=== PATIENT | female | born 1950 | race Caucasian/White ===

== ENCOUNTER 2019-12-21 10:58 | Outpatient (CLI) | payer MEDICARE, MEDICAID, SELFPAY ==
--- NOTE | 2019-12-21 11:13 | CT_ITS ---
WS: [id number] LDCT LUNG CANCER SCREENING TECHNIQUE: Noncontrast CT of the chest with coronal and sagittal reformatted images. CLINICAL INFORMATION: HX OF TOBACCO USE COMPARISON: CTA chest 2 15,018 DLP: 72.81 mGy.cm DIvol: 2.[address] scans at [facility] use at least one of these dose optimization techniques: automat ed exposure control; mA and/or kV adjustment per patient size (includes targeted exams where dose is matched to clinical indication); or iterative reconstruction. FINDINGS: 3 mm nodule superior segment left lower lobe medially stable since 2018. Atelectasis in the lingula. Subpleural nodule right upper lobe measuring 3.5 mm. Partially calcified nodule right lower lobe hunter uring 5 mm. Additional calcified granulomas right lower lobe laterally. Aortic calcification. Coronary calcification. No mediastinal or hilar lymphadenopathy. Adrenal glands are normal. Small esophageal hiatal hernia. CT/CT lung screening [id number] IMPRESSION: LUNG-RADS: 2-Benign Appearance or Behavior FOLLOW UP: 12 Month: Continue annual screening with LDCT
--- NOTE | 2019-12-21 11:45 | MM_ITS ---
WS: [id number] BILATERAL DIGITAL DIAGNOSTIC MAMMOGRAM MAMMOGRAPHY WITH CAD CLINICAL INFORMATION: HX OF BREAST CA COMPARISON: TECHNIQUE: Bilateral CC, MLO, and ML views. FINDINGS: Fatty replaced breasts bilaterally. Bilateral dystrophic and lucent centered calcifications. Evidence of prior postoperative changes right breast. Right breast is smaller than the left breast. This is u nchanged. Post therapeutic changes right breast. No suspicious focal mass, asymmetry, calcifications, or architectural distortion. No evidence of codi gnancy. MM/[place] [id number] IMPRESSION: BI-RADS: 2-Benign FOLLOW UP: 1 Year Follow-up Recommend return to annual diagnostic mammography.
== END 2019-12-21 10:59 | disposition home or self-care (01) ==
LOC: CT 10:59
PROVIDERS: Family Provider Family Medicine; PCP Family Medicine; Visit Provider Family Medicine
DX: Z12.2 Encounter for screening for malignant neoplasm of respiratory organs (principal); Z85.3 Personal history of malignant neoplasm of breast; F17.210 Nicotine dependence, cigarettes, uncomplicated
CPT/HCPCS: 77066; G0297

== ENCOUNTER 2020-02-01 09:36 | Outpatient (CLI) | payer MEDICARE, MEDICAID, SELFPAY ==
--- NOTE | 2020-02-01 09:58 | ECG_ITS ---
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 Interpretive Statements NAME OF STUDY: LEXISCAN SESTAMIBI STRESS TEST INDICATION: Coronary Artery Disease PROCEDURE: At the baseline, the blood pressure was 194/85 mmHg with a heart rate of 63 bpm. The electrocardiogram showed normal sinus rhythm, normal axis with normal ST and T's. The Lexiscan was infused over a period of 20 seconds. A total of 0.4 milligrams of Lexiscan was infused. The stress phase was continued for a total of 5 minutes. Heart rate at the end of the stress phase was 74 bpm with a blood pressure of 190/84 mmHg. The EKG at the peak infusion revealed sinus rhythm at 74 bpm with no significant ST-T wave changes. Sestamibi was injected 20 seconds after the Lexiscan infusion. Blood pressure at the end of the recovery phase was 174/84 mmHg with a heart rate of 77 beats per minute. CONCLUSION: 1. No significant EKG changes with the LexiScan infusion. 2. No LexiScan induced chest pain or cardiac arrhythmia. 3. Normal blood pressure and heart rate response. 4. Sestamibi/sestamibi perfusion scan pending; see separate report. Electronically Signed On 02-02-2020 17:28:25 CDT by Darya Cleaning M.D. [email or web address] ([id number]
--- NOTE | 2020-02-01 09:59 | NMCV_ITS ---
NM arleen perf SPECT r/s* [id number] Maura Castañeda Age: 69 Gender: F : 1950 Exam Date: 02/01/2020 10:47 Ordering Phys: Moody Nix MD ([email or web address]) Technologist: MICHAEL Sommers Exam Location: [facility] Indications: CAD STRESS TEST Please see separate stress test report in [facility] for full findings IMAGE PROTOCOL Rest/Stress 1 Lexiscan Day Radiopharmaceutical Dose (mCi) Administration Site Administered by Rest: Tc-99m 10.8 IV MICHAEL Sommres Sestamibi Stress:Tc-99m 32.3 IV MICHAEL Sommers Sestamibi Rest: 01-Feb-2020 60 Discovery 630 Stress: 01-Feb-2020 30 Discovery 630 0.4mg Lexiscan. Images obtained in supine and prone position. SPECT RESULTS Technical Quality: Excellent Raw Data Analysis: Normal Image Corrections: No attenuation or motion correction applied Summed Stress Score: 0 Summed Rest Score: 0 Summed Difference Score: 0 PERFUSION FINDINGS Overall normal perfusion imaging. There is low radiotracer counts in the anterior wall both at rest and stress. However it normalizes on prone imaging. This is likely attenuation artifact. FUNCTIONAL RESULTS (calculated via Gated SPECT) Stress Image LV EF (%): 80 Stress EDV (mL):44 TID: 0.96 Stress ESV (mL):9 FUNCTIONAL FINDINGS: There is normal left ventricular systolic function. IMPRESSIONS 1. Normal myocardial perfusion imaging with no evidence of ischemia. Anterior wall attenuation artifact is noted that resolves on prone imaging. 2. normal LV systolic function. Woody Toney MD (Electronically Signed) Final Date: 02 February 2020 12:30 S
[2020-02-01 10:01] VITALS: BMI 31.1
[2020-02-01] MEDS: regadenoson 0.4 Mg/5 ml Syringe IVP (11:38)
[2020-02-01 11:55] VITALS: BP 174/84; PULSE 77
== END 2020-02-01 09:37 | disposition home or self-care (01) ==
LOC: CDL 09:39
PROVIDERS: Visit Provider Internal Medicine Cardiovascular Disease
DX: R07.9 Chest pain, unspecified (principal); I25.10 Atherosclerotic heart disease of native coronary artery without angina pectoris
CPT/HCPCS: 78452; 93017; A9500; J2785

== ENCOUNTER → 2020-08-30 12:52 | Outpatient (BNVA) | payer MEDICARE, MEDICAID, SELFPAY | PROVIDERS: PCP Internal Medicine Cardiovascular Disease; Visit Provider Urology | DX: R33.9 Retention of urine, unspecified (principal); N39.0 Urinary tract infection, site not specified | CPT/HCPCS: 81003 ==

== ENCOUNTER 2021-06-19 09:49 | Outpatient (CLI) | payer MEDICARE, MEDICAID, SELFPAY ==
--- NOTE | 2021-06-19 10:00 | US_ITS ---
WS: [id number] RIGHT UPPER QUADRANT ULTRASOUND HISTORY: ELEVATED LIVER ENZYMES COMPARISON: 08/29/2012 Liver: 14.1 cm in length. Liver is normal size. Surface of the liver is very slightly irregular and n odular. Increased echogenicity throughout the liver. Partial obscuration of the portal triads. No mas s or bile duct dilatation. Portal Vein: Normal hepatopetal flow with monophasic waveform. Gallbladder: Status post cholecystectomy. CBD: 0.5 cm Pancreas: Normal size and echogenicity. Right kidney: 13.9 cm in length. Normal size kidney. There is a large cyst from the upper pole of the kidney measuring 7.8 x 7.3 x 10.2 cm. Aorta and IVC: Unremarkable abdominal aorta and IVC. No ascites. US/US abdomen limited [id number] IMPRESSION: 1. Prior cholecystectomy. 2. Large RIGHT renal cyst is increased in size since 2012. 3. Early changes of cirrhosis and hepatic steatosis.
== END 2021-06-19 09:50 | disposition home or self-care (01) ==
PROVIDERS: PCP Internal Medicine Cardiovascular Disease; Visit Provider Family Medicine
DX: R74.8 Abnormal levels of other serum enzymes (principal); Z90.49 Acquired absence of other specified parts of digestive tract; N28.1 Cyst of kidney, acquired
CPT/HCPCS: 76705

== ENCOUNTER 2021-07-24 12:55 | Outpatient (CLI) | payer MEDICARE, MEDICAID, SELFPAY ==
--- NOTE | 2021-07-24 13:00 | MM_ITS ---
WS: [id number] Bilateral diagnostic 3D tomosynthesis digital mammogram, 07/24/2021 Clinical Data: HX OF BREAST CA Comparison: 12/21/2019, 01/21/2018, 12/24/2016, 11/10/2015, 11/08/2014, 07/06/2013, 04/09/2012. Findings: The parenchymal pattern shows bilateral fat replacement. The right breast is smaller because of treat ment for right breast cancer. There are dystrophic calcifications and skin thickening of the right br east. There is a soft tissue nodule unchanged in the right breast. The left breast shows anterior eloina ign calcifications. There are no clustered calcifications or spiculated masses. No secondary signs of carcinoma are seen. MM/[place] [id number] Impression: 1. Chronic changes from breast cancer treatment in the right breast. 2. Negative left breast. 3. Annual screening mammograms. BIRADS: 2-Benign The CAD die drawing checker was used.
== END 2021-07-24 12:56 | disposition home or self-care (01) ==
LOC: RADSHAW 12:56
PROVIDERS: PCP Internal Medicine Cardiovascular Disease; Visit Provider Family Medicine
DX: Z85.3 Personal history of malignant neoplasm of breast (principal)
CPT/HCPCS: 77062

== ENCOUNTER → 2021-07-30 14:02 | Outpatient (BNVA) | payer MEDICARE, MEDICAID, SELFPAY | PROVIDERS: PCP Family Medicine; Visit Provider Internal Medicine Cardiovascular Disease | DX: E78.5 Hyperlipidemia, unspecified (principal); I10 Essential (primary) hypertension; I25.10 Atherosclerotic heart disease of native coronary artery without angina pectoris; Z87.891 Personal history of nicotine dependence | CPT/HCPCS: 99214 ==

== ENCOUNTER → 2022-03-05 10:10 | Outpatient (BNVA) | payer MEDICARE, MEDICAID, SELFPAY | PROVIDERS: PCP Family Medicine; Visit Provider Surgery | DX: Z86.010 Personal history of colon polyps (principal); Z12.11 Encounter for screening for malignant neoplasm of colon | CPT/HCPCS: 99024; 99203 ==

== ENCOUNTER 2022-03-08 12:55 | Outpatient (CLI) | payer MEDICARE, MEDICAID, SELFPAY ==
--- NOTE | 2022-03-08 | CT_ITS ---
WS: [id number] LDCT LUNG CANCER SCREENING HISTORY: HX TOBACCO USE TECHNIQUE: Axial imaging performed from the apices to 1 cm below the costophrenic angles. Coronal and sagittal reformats are submitted with axial MIP series. All CT scans at [facility] use at least one of these dose optimization techniques: automated exposure control; mA and/or kV adjustment per patient size (includes targeted exams where dose is matched to clinical indication); or iterativ e reconstruction. DLP: 79.89 mGy.cm DIvol: Mean CTDIvol: 1.60 (mGy) COMPARISON: 12/21/2019 Diagnostic quality: Satisfactory Lung Nodules: No increase in size of the previously described pulmonary nodules from 12/21/2019. There are no new pulmonary nodules. No masses. No endobronchial lesions. Heart: Normal size heart. No pericardial effusion. There is extensive coronary artery calcifications. Most significant calcification along the LEFT anterior descending coronary. Other findings: Mildly ectatic thoracic aorta with calcification. Normal size pulmonary artery. No ad enopathy. RIGHT breast prosthesis. Small hiatal hernia. Large cyst RIGHT upper abdomen has been previ ously described associated with the kidney. 11 mm hyperdense mass exophytic from the posterior LEFT k idney is new. Prior cholecystectomy. No adrenal mass. CT/CT lung screening [id number] IMPRESSION: LUNG-RADS: 2S-Benign Appearance or Behavior with Significant Findings FOLLOW UP: 12 Month: Continue annual screening with LDCT OTHER FINDINGS (S MODIFIER): New hyperdense nodule from the posterior LEFT kidn ey measures 11 mm. Not seen on a prior CT from 2013. Recommend follow-up by dora marroquin.
== END 2022-03-08 12:56 | disposition home or self-care (01) ==
LOC: RAD 12:55
PROVIDERS: PCP Family Medicine; Visit Provider Family Medicine
DX: Z12.2 Encounter for screening for malignant neoplasm of respiratory organs (principal); Z87.891 Personal history of nicotine dependence
CPT/HCPCS: 71271

== ENCOUNTER 2022-07-22 15:25 | Outpatient (CLI) | payer MEDICARE, MEDICAID, SELFPAY ==
--- NOTE | 2022-07-22 16:01 | XR_ITS ---
WS: [id number] XR ankle LT min 3V* [id number] REASON FOR EXAM: INJURY TO LEFT ANKLE FINDINGS: Oblique fracture line through the medial malleolus without significant displacement. Sclerosis along the margins of the fracture. Ankle mortise is intact. No other significant abnormality. XR/XR ankle LT min 3V* [id number] IMPRESSION: Subacute medial malleolar fracture.
== END 2022-07-22 15:26 | disposition home or self-care (01) ==
PROVIDERS: PCP Family Medicine; Visit Provider Family Medicine
DX: S82.52XA Displaced fracture of medial malleolus of left tibia, initial encounter for closed fracture; X58.XXXA Exposure to other specified factors, initial encounter
CPT/HCPCS: 73610

== ENCOUNTER 2022-07-30 16:09 | Outpatient (CLI) | payer MEDICARE, MEDICAID, SELFPAY | END 2022-07-30 16:10 | disposition home or self-care (01) | LOC: SPT 16:10 | PROVIDERS: PCP Family Medicine; Visit Provider Podiatrist Foot & Ankle Surgery | DX: Z46.89 Encounter for fitting and adjustment of other specified devices (principal); S82.53XD Displaced fracture of medial malleolus of unspecified tibia, subsequent encounter for closed fracture with routine healing; X58.XXXD Exposure to other specified factors, subsequent encounter | CPT/HCPCS: 97760; 99203; L4361 ==

== ENCOUNTER 2022-09-04 13:03 | Outpatient (CLI) | payer MEDICARE, MEDICAID, SELFPAY ==
--- NOTE | 2022-09-04 13:28 | MM_ITS ---
WS: [id number] BILATERAL 3D TOMOSYNTHESIS DIGITAL DIAGNOSTIC MAMMOGRAPHY WITH CAD CLINICAL INFORMATION: ANNUAL - HX OF BREAST CA HISTORY: COMPARISON: July 24, 2021 TECHNIQUE: Bilateral CC, MLO, and ML views. FINDINGS: Scattered fibroglandular densities bilaterally. Punctate and lucent centered calcifications. Postoper ative changes RIGHT breast with parenchymal volume loss. Treatment-related changes RIGHT breast with parenchymal scarring. No suspicious focal mass, asymmetry, calcifications, or architectural distortion. No evidence of codi gnancy. MM/[place] [id number] IMPRESSION: BI-RADS: 2-Benign FOLLOW UP: 1 Year Follow-up Recommend return to annual diagnostic mammography.
== END 2022-09-04 13:04 | disposition home or self-care (01) ==
LOC: RAD 13:08
PROVIDERS: PCP Family Medicine; Visit Provider Family Medicine
DX: I25.10 Atherosclerotic heart disease of native coronary artery without angina pectoris (principal); J44.9 Chronic obstructive pulmonary disease, unspecified; Z72.0 Tobacco use; E78.5 Hyperlipidemia, unspecified; I10 Essential (primary) hypertension; I25.2 Old myocardial infarction; Z98.61 Coronary angioplasty status; S82.52XA Displaced fracture of medial malleolus of left tibia, initial encounter for closed fracture; X58.XXXA Exposure to other specified factors, initial encounter
CPT/HCPCS: 77062; 99213; G0279

== ENCOUNTER → 2023-02-25 13:20 | Outpatient (BNVA) | payer MEDICARE, MEDICAID, SELFPAY | PROVIDERS: PCP Family Medicine; Visit Provider Surgery | DX: Z12.11 Encounter for screening for malignant neoplasm of colon (principal) | CPT/HCPCS: 99024; 99213 ==

== ENCOUNTER 2023-03-26 09:37 | Day surgery (SDC) | payer MEDICARE, MEDICAID, SELFPAY ==
[2023-03-26 10:06] VITALS: BP 189/110; PULSE 80; RESP 18; TEMP 36.2; BMI 31.4
[2023-03-26 10:32] LABS: Glucose Point of Care 124 mg/dL (70-110)
[2023-03-26] MEDS: sodium chloride 0.9% 1,000 ML 30 ML IV (10:34)
[2023-03-26 10:43] LABS: Basophils # 0.1 10^3/uL (0.0-0.1); Eosinophils # 0.2 10^3/uL (0.0-0.8); Eosinophils % 2.3 %; Lymphocytes # 2.5 10^3/uL (0.8-4.8); Lymphocytes % 34.4 %; Mean Corpuscular HGB Conc 33.2 g/dL (30-55); Mean Corpuscular Hemoglobin 30.8 pg (27-33); Mean Corpuscular Volume 92.8 fl (85-98); Mean Platelet Volume 10.4 fL (7.4-10.4); Monocytes # 0.5 10^3/uL (0.2-0.9); Monocytes % 7.2 %; Neutrophils # 4.03 10^3/uL (1.8-7.7); Neutrophils % 54.7 %; Nucleated Red Blood Cells % 0 %; Platelet Count 253 10^3/cmm (157-399); Red Blood Count 4.74 10^6/uL (3.85-5.65); Red Cell Distribution Width 12.7 % (12.1-15.1); White Blood Count 7.36 10^3/uL (3.29-11.43)
--- NOTE | 2023-03-26 10:48 | ANES.PREANE2 ---
Pre-Anesthetic Assessment Height/Weight: Height 1.55 m Weight 75.296 kg Temp Pulse Resp BP O2 Del Method 97.1 F L 80 18 189/110 Room Air 03/26/23 10:06 03/26/23 10:06 03/26/23 10:06 03/26/23 10:06 03/26/23 10:06 Operation Date: 03/26/23 10:30 [place] 93571 colon G0121 screen colon A risk Z12.11(Not Applicable) - Davon Lee DO Familial anesthetic complications: None Was Beta Yumiko taken within 24 hours: N/A Was Clonidine taken within 24 hours: N/A Last intake: Intake Last Liquid Date 03/25/23 Last Liquid Time 22:00 Last Solid Date 03/24/23 Last Solid Time 17:00 Social No alcohol and No tobacco former Exam alert, oriented x 3, clear to auscultation bilaterally and regular rate & rhythm Airway Mallampati: Class II Dentition: full Pulmonary Chronic Obstructive Pulmonary Disease CV/HEM Hypertension, Myocardial Infarction and Murmur states able to achieve greater than 4 METS Metabolic Diabetes Mellitus [facility] [place] Rheumatoid Arthritis Anesthetic Plan ASA status: 3 Anesthesia: MAC Risk of > 500 ml blood loss (7ml/kg in children): No Medications/Allergies Home Medications Medication Instructions Recorded Confirmed Last Taken Type albuterol sulfate 90 mcg/actuation 2 puff inhalation Q6H PRN 09/28/19 03/26/23 4 Months Ago History aerosol inhaler Shortness Of Breath ~11/23/22 aspirin 81 mg tablet,delayed 81 mg PO DAILY 09/28/19 03/24/23 03/24/23 History release (Aspir-) atorvastatin 80 mg tablet 80 mg PO DAILY 09/28/19 03/24/23 03/25/23 History famotidine 40 mg tablet 40 mg PO DAILY 09/28/19 03/24/23 03/25/23 History gabapentin 300 mg capsule 300 mg PO BID 09/28/19 03/24/23 03/25/23 History (Neurontin) lisinopril 20 mg tablet 20 mg PO DAILY 09/28/19 03/24/23 03/25/23 History omega-3 fatty acids 1,000 mg 1,000 mg PO DAILY 09/28/19 03/24/23 03/25/23 History capsule (Fish Oil Concentrate) tramadol 50 mg tablet 50 mg PO Q6H PRN Pain 09/28/19 03/26/23 3 Months Ago History ~12/24/22 nitroglycerin 0.4 mg sublingual 0.4 mg sublingual Q5M PRN chest 01/11/20 03/26/23 1 Year Ago Rx tablet (Nitrostat) pain #60 tabs ~03/26/22 ferrous sulfate 325 mg (65 mg 325 mg PO .WEEKLY PRN .low iron 07/30/21 03/26/23 2 Weeks Ago History iron) tablet ~03/12/23 meloxicam 7.5 mg tablet 7.5 mg PO DAILY 07/30/21 03/24/23 03/25/23 History omeprazole 20 mg capsule,delayed 20 mg PO DAILY 07/30/21 03/24/23 03/25/23 History release prasugrel 10 mg tablet (Effient) 10 mg PO DAILY 07/30/21 03/24/23 03/25/23 History trazodone 50 mg tablet 50 mg PO DAILY 07/30/21 03/24/23 03/25/23 History tamsulosin 0.4 mg capsule See Rx Instructions .Route 01/21/22 03/24/23 03/25/23 Rx .COMPLEX #90 caps CAM boot #1 ea 07/30/22 02/25/23 03/25/23 Rx metformin 500 mg tablet 500 mg PO DAILY 03/26/23 03/26/23 03/23/23 History Allergies Allergy/AdvReac Type Severity Reaction Status Date / Time No Known Allergies Allergy Verified 03/24/23 12:14 Current Medications Generic Name Dose Route Start Last Admin Trade Name Yungq PRN Reason Stop Dose Admin Sodium Chloride 1,000 mls @ 30 mls/hr 03/26/23 09:45 03/26/23 10:34 Sodium Chloride 0.9% IV 03/27/23 09:44 30 mls/hr .Q24H NIKKO Administration PFSH Anesthesia Medical History Acute cystitis with hematuria ASHD (arteriosclerotic heart disease) COPD (chronic obstructive pulmonary disease) GERD (gastroesophageal reflux disease) Gross hematuria History of colon polyps HTN (hypertension) Hyperlipidemia Incomplete bladder emptying Lateral cystocele Meniere disease Myocardial infarction Recurrent UTI Rheumatoid arthritis Tobacco abuse Surgical History S/P cholecystectomy S/P hysterectomy S/P lumpectomy of breast S/P PTCA (percutaneous transluminal coronary angioplasty) S/P tonsillectomy Status post tubal ligation Social History Smoking and tobacco/nicotine status: former use of tobacco/nicotine Alcohol intake: unknown Substance/Drug Use: unknown Adopted: No Caregiver/support person: No Lives independently: No Household members: spouse Marital status: Current occupational status: retired Data Anesthesia 03/26/23 10:27 03/26/23 10:27 Short CBC 03/26/23 Range/Units 10:27 WBC 7.36 (3.29-11.43) 10^3/uL Hgb 14.60 (11.27-16.99) g/dL Hct 44.0 (36-47) % MCV 92.8 (85-98) fl Plt Count 253 (157-399) 10^3/cmm Neut % (Auto) 54.7 % Neut # (Auto) 4.03 (1.8-7.7) 10^3/uL Cardiac Studies: Sestamibi Stress Test (Cardiology) 02/01/20
--- NOTE | 2023-03-26 11:58 | P.HPUD_ITS ---
Surgery/Procedure H&P Update DATE OF PROCEDURE: March 26, 2023 DATE H&P PERFORMED: 02/25/23 H&P UPDATE INFORMATION: I have reviewed H&P completed within last 30 days, I have examined patient prior to procedure and No changes to prior documentation PLANNED PROCEDURE: Operation Date: 03/26/23 10:30 Proposed Procedures p 91960 colon G0121 screen colon A risk Z12.11(Not Applicable) - Davon ribera, DO
--- NOTE | 2023-03-26 12:35 | ANE.PACU2 ---
Inpatient post-anesthesia follow up: Airway intact: Yes Vital signs: Temperature 97 F Pulse Rate 58 Respiratory Rate 18 Blood Pressure 166/83 Pulse Oximetry 100 Oxygen Delivery Me thod Room Air Oxygen Flow Rate Fraction of Inspir ed Oxygen Hydration adequate: Yes Nausea and vomiting: No Pain level: 1 Mental status: Baseline
[2023-03-26 12:43] VITALS: BP 122/68; PULSE 59; RESP 18; TEMP 36.1; O2SAT 96
[2023-03-26] MEDS: ondansetron 2 mg/ML SDV 2 mL 4 MG IVP (12:59)
[2023-03-26 13:02] VITALS: BP 166/80; PULSE 56; RESP 18; O2SAT 98
--- NOTE | 2023-03-26 13:17 | PC.NURSE ---
1255 - pt up to bathroom passing flatus and throwing up yellow fluid. dr hammond notified.
[2023-03-26 13:26] VITALS: BP 166/83; PULSE 58; RESP 18; O2SAT 100
[2023-07-17 16:04] LABS: Mismatch Repari Proteins-IHC See Report
== END 2023-03-26 14:07 | disposition home or self-care (01) ==
PROVIDERS: Anesthesiology; PCP Family Medicine; Visit Provider Surgery
PROC: 0DJD8ZZ Inspection of Lower Intestinal Tract, Via Natural or Artificial Opening Endoscopic (ICD-10-PCS; CPT 45378; principal; 2023-03-26 10:30)
DX: Z12.11 Encounter for screening for malignant neoplasm of colon (principal); D12.3 Benign neoplasm of transverse colon; C18.6 Malignant neoplasm of descending colon; D12.8 Benign neoplasm of rectum; C20 Malignant neoplasm of rectum; K57.30 Diverticulosis of large intestine without perforation or abscess without bleeding; Z87.891 Personal history of nicotine dependence; I10 Essential (primary) hypertension; I25.2 Old myocardial infarction; E11.9 Type 2 diabetes mellitus without complications; M06.9 Rheumatoid arthritis, unspecified; I25.10 Atherosclerotic heart disease of native coronary artery without angina pectoris; E78.5 Hyperlipidemia, unspecified
CPT/HCPCS: 36415; 36416; 45385; 82962; 85025; 88305; 88341; 88342; J2405; J2704; J7030

== ENCOUNTER → 2023-04-23 13:30 | Outpatient (BNVA) | payer MEDICARE, MEDICAID, SELFPAY | PROVIDERS: PCP Family Medicine; Visit Provider Surgery | DX: C20 Malignant neoplasm of rectum (principal); K63.5 Polyp of colon | CPT/HCPCS: 99213 ==

== ENCOUNTER 2023-05-30 14:56 | Outpatient (CLI) | payer MEDICARE, MEDICAID, SELFPAY ==
--- NOTE | 2023-05-30 15:09 | CTR_ITS ---
PROCEDURE INFORMATION: Exam: CT Chest With Contrast; Diagnostic Exam date and time: 05/30/2023 5:54 PM Age: 72 years old Clinical indication: Condition or disease; Prior surgery; Surgery date: 6+ months; Surgery type: RT lumpectomy. Gb. Tubal. Patient HX: Oncology staging ofrectal cancer. ; Additional info: [place] neoplasm of rectum TECHNIQUE: Imaging protocol: Diagnostic computed tomography of the chest with contrast. Radiation optimization: All CT scans at this facility use at least one of these dose optimization techniques: automated exposure control; mA and/or kV adjustment per patient size (includes targeted exams where dose is matched to clinical indication); or iterative reconstruction. Contrast material: OMNI 350; Contrast volume: 100 ml; Contrast route: INTRAVENOUS (IV); Other contrast: Oral, OMNI 350 , 25ML IN 450ML WATER; COMPARISON: 1. CT lung screening [id number] 03/08/2022 1:[address] lung screening [id number] 12/21/2019 11:22 AM RADIATION DOSE METRICS: Total DLP (mGy-cm): 1208.75 FINDINGS: Lungs: There are some calcified granulomas in the lungs. There also nodules that are not definitely calcified on this examination but are unchanged from 12/21/2019 such as 5 mm nodule right lower lobe image number 33 series 4 and a 4 mm subpleural nodule right upper lobe on image number 14. No new pulmonary nodules or other findings suspicious for pulmonary metastasis are identified. There is focal scarring in the lingula unchanged from 2020. Pleural spaces: Unremarkable. No pneumothorax. No pleural effusion. Heart: Unremarkable. No cardiomegaly. No pericardial effusion. Lymph nodes: There is no evidence of lymphadenopathy. There are calcified hilar and mediastinal lymph nodes in keeping with old granulomatous disease. Vasculature: There is no thoracic aortic aneurysm or dissection. Bones/joints: The thoracic spine demonstrates mild degenerative changes at multiple levels. There is no evidence of acute fracture. No lytic or sclerotic bone metastasis are identified. Soft tissues: There has been a right mastectomy. PROCEDURE INFORMATION: Exam: CT Abdomen And Pelvis With Contrast Exam date and time: 05/30/2023 5:54 PM Age: 72 years old Clinical indication: Condition or disease; Prior surgery; Surgery date: 6+ months; Surgery type: RT lumpectomy. Gb. Tubal. Patient HX: Oncology staging ofrectal cancer. ; Additional info: [place] neoplasm of rectum TECHNIQUE: Imaging protocol: Computed tomography of the abdomen and pelvis with contrast. Radiation optimization: All CT scans at this facility use at least one of these dose optimization techniques: automated exposure control; mA and/or kV adjustment per patient size (includes targeted exams where dose is matched to clinical indication); or iterative reconstruction. Contrast material: OMNI 350; Contrast volume: 100 ml; Contrast route: INTRAVENOUS (IV); Other contrast: Oral, OMNI 350 , 25ML IN 450ML WATER; COMPARISON: 1. CT lung screening [id number] 03/08/2022 1:[address] angio chest PE protcl [id number] 06/26/2017 7:57 PM RADIATION DOSE METRICS: Total DLP (mGy-cm): 1208.75 FINDINGS: Liver: There is a 19 x 5 mm sized hypodense lesion in the right lobe of the liver along the posterior border of the middle hepatic vein common best seen on image 4 series 5. In retrospect this is probably present on the CT pulmonary angiogram study of 06/26/2017. This most likely represents benign cystic lesion of the liver. No other focal abnormality is seen within the liver. Gallbladder and bile ducts: There has been a cholecystectomy. Pancreas: The pancreas is normal. Spleen: The spleen demonstrates punctate calcifications, consistent with remote granulomatous organism exposure. Adrenal glands: The adrenal glands are normal. Kidneys and ureters: There are multiple benign cortical cysts in both kidneys measuring up to 5 cm on the left 5 x 8 cm on the right. There is no evidence of hydronephrosis. There is no evidence of renal or ureteral calcifications. Stomach and bowel: Moderate diverticulosis is present in the distal colon. There is no evidence of colitis/diverticulitis. There is abnormal enhancement and thickening of the left wall of the rectum consistent with the given history of rectal cancer. There is no evidence of intestinal obstruction. Appendix: A normal appendix is identified. Intraperitoneal space: There is no evidence of free intraperitoneal fluid. Vasculature: The aorta demonstrates moderate atherosclerotic calcification. There is mild ectasia of the infrarenal abdominal aorta measuring 2.1 cm. Lymph nodes: Enhancing 5 x 7 mm sized lymph node is seen in the perirectal fat on the left on image number 63 series 5. No other adenopathy is identified. Urinary bladder: There is mild thickening of the urinary bladder wall with some stranding in the adjacent fat. Please correlate for clinical signs or symptoms of urinary tract infection. Reproductive: There has been a hysterectomy. Bones/joints: Unremarkable. No acute fracture. Soft tissues: There is a small umbilical hernia containing only fat. CT/CT chest abdpel w/*[id number] IMPRESSION: 1. Stable pulmonary nodules. 2. No acute findings or evidence for metastatic disease within the chest. IMPRESSION: 1. Enhancing rectal mass consistent with the given diagnosis of rectal cancer. 2. A single perirectal lymph node is identified of uncertain significance. No definite metastatic disease in the abdomen or pelvis. 3. Urinary bladder thickening. Please correlate with clinical findings for urinary tract infection. COMMENTS: Consistent with the [employer]'s Incidental Findings Committee white paper (J Am Taniya Radiol 2018): Any incidental renal lesion less than 1 cm or classified as too small to characterize, or any incidental cystic renal lesion characterized as simple-appearing, is likely benign. No follow-up imaging is recommended for these lesions per consensus recommendations based on imaging criteria.
[2023-05-30 16:03] LABS: Blood Urea Nitrogen 14 mg/dL (8-23)
[2023-05-30] MEDS: iohexol 350 mg/mL 500 mL Btl (per mL) IV (17:56)
[2023-05-30] MEDS: iohexol 350 mg/mL 500 mL Btl (per mL) PO (17:57)
== END 2023-05-30 14:57 | disposition home or self-care (01) ==
PROVIDERS: PCP Family Medicine; Visit Provider Family Medicine
DX: C20 Malignant neoplasm of rectum (principal); C18.6 Malignant neoplasm of descending colon; N32.9 Bladder disorder, unspecified; Z98.890 Other specified postprocedural states
CPT/HCPCS: 71260; 74177; 82565; 84520; Q9967

== ENCOUNTER 2023-05-30 16:30 | Emergency (ER) | payer MEDICARE, MEDICAID, SELFPAY ==
[2023-05-30 16:36] VITALS: BP 116/89; PULSE 83; RESP 20; O2SAT 99
--- NOTE | 2023-05-30 16:47 | XRR_ITS ---
PROCEDURE INFORMATION: Exam: XR Chest Exam date and time: 05/30/2023 4:53 PM Age: 72 years old Clinical indication: Other: Dizziness; Additional info: Synocope TECHNIQUE: Imaging protocol: Radiologic exam of the chest. Views: 1 view. COMPARISON: CT lung screening [id number] 03/08/2022 1:42 PM FINDINGS: Lungs: Visualized portions of the lungs are clear. There is no pulmonary venous congestion. Pleural spaces: Unremarkable. No pleural effusion. No pneumothorax. Heart/Mediastinum: Heart is within normal limits of size. Bones/joints: Unremarkable. XR/XR chest 1V portable [id number] IMPRESSION: No acute infiltrate.
--- NOTE | 2023-05-30 16:48 | ECG_ITS ---
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 Measurements Intervals [place] Rate: 77 P: 47 SC: 146 QRS: 64 QRSD: 82 T: 75 QT: 395 QTc: 448 Interpretive Statements SINUS RHYTHM INDETERMINATE AXIS POSSIBLE INFERIOR MYOCARDIAL INFARCTION , OF Compared to ECG 06/26/2017 17:29:32 Indeterminate axis now present Myocardial infarct finding now present Sinus arrhythmia no longer present Electronically Signed On 05-31-2023 6:07:43 WELDING SETTER by Woody Toney M.D. [email or web address] hospitalHyper [facility].Social Median/store/NU/[id number] f
--- NOTE | 2023-05-30 16:49 | ED_ITS ---
HPI - General Adult 2 General: Chief complaint: General Medical Stated complaint: unresponsive Time Seen by Provider: 05/30/23 16:33 Source: patient and other (Radiology staff) Mode of arrival: wheelchair History of Present Illness: This patient was in radiology this afternoon getting a scheduled CT scan. She was drinking the oral contrast and stated there was upsetting her stomach and she was nauseated and then was noted to be less responsive by the radiology staff. She stated she wanted to go to the bathroom and they let her sit on the commode and she continued to have waxing and waning level of alertness and they called a rapid response and she was transported to the emergency department. Patient states she is she has no chest pain or shortness of breath at this time. She states she has a history of coronary disease had an MRI of several years ago and had stents placed in [place]. She apparently is being evaluated for a rectal mass and therefore the CT scan was being performed. Patient states that she is ate and drank normally today has had no significant history of syncope. Associated symptoms: Deny chest pain, dyspnea, headache(s), nausea, rash, palpitations or vomiting Review of Systems 2 Const: Denies: fever(s) or chills Eyes: Denies: change in vision ENMT: Denies: odynophagia, nasal discharge or nasal congestion Card: Denies: chest pain, palpitations, irregular heart rhythm or edema Resp: Denies: dyspnea, productive cough or non-productive cough GI: Denies: nausea, vomiting, diarrhea, hematochezia or melena : Denies: flank pain, difficulty voiding or dysuria Musc: Denies: neck pain, back pain, extremity pain or extremity swelling Skin/Breast: Denies: rash Neuro: Denies: headache(s), numbness in extremities, weakness in extremities or seizure-like activity Psych: Denies: anxiety or depression Alberto/Lymph: Denies: easy bruising or easy bleeding PFSH ED 2 PFSH: Medical History History of colon polyps GERD (gastroesophageal reflux disease) Meniere disease Rheumatoid arthritis Lateral cystocele Acute cystitis with hematuria Gross hematuria Recurrent UTI Incomplete bladder emptying Tobacco abuse COPD (chronic obstructive pulmonary disease) Hyperlipidemia HTN (hypertension) Myocardial infarction ASHD (arteriosclerotic heart disease) Surgical History S/P tonsillectomy Status post tubal ligation S/P hysterectomy S/P lumpectomy of breast S/P cholecystectomy S/P PTCA (percutaneous transluminal coronary angioplasty) Social History Smoking and tobacco/nicotine status: former use of tobacco/nicotine Alcohol intake: unknown Substance/Drug Use: unknown Adopted: No Caregiver/support person: No Lives independently: No Household members: spouse Marital status: Current occupational status: retired Physical Exam 2 Narrative: EXAM NARRATIVE: The patient is alert and responds appropriately to questions. Const: COMMON NORMALS: no acute distress, patient oriented x3, no limitations and alert GENERAL APPEARANCE: cooperative ORIENTATION/CONSCIOUSNESS: Yes awake, Yes oriented to person and Yes oriented to place HENMT: COMMON NORMALS: normocephalic, atraumatic, moist oral mucous membranes and oropharynx normal HEAD & SCALP: normocephalic and atraumatic FACE & SINUS: normal facial exam and face symmetric Eye: COMMON NORMALS: Equal, round and reactive pupils present, EOMs intact bilaterally and conjunctivae normal CONJUNCTIVA: Yes conjunctivae normal P UPIL: Yes Equal, round and reactive pupils present Neck/C-Spine: COMMON NORMALS: full ROM, no JVD, Thyroid normal and No carotid bruits THYROID: Thyroid normal Resp: COMMON NORMALS: normal respiratory effort, No use of accessory muscles and clear to auscultation bilaterally AUSCULTATION: clear to auscultation bilaterally Cardio: COMMON NORMALS: no JVD, regular rate, regular rhythm, No murmurs present (Cardio) and Peripheral pulses 2+ throughout RATE: regular rate R HYTHM: regular rhythm PERIPHERAL PULSES: Peripheral pulses 2+ throughout GI: COMMON NORMALS: Normal to inspection, nondistended, normoactive bowel sounds present, Soft to palpation and no masses PALPATION: Yes Soft to palpation : COMMON NORMALS: Yes no CVA tenderness BLADDER/KIDNEY EXAM: Yes no CVA tenderness Back/Pelvis: COMMON NORMALS: no CVA tenderness, thoracic and lumbar spine normal to inspection, no thoracic nor lumbar tenderness and thoraco-lumbar ROM normal Extremity: COMMON NORMALS: normal to inspection, full ROM, no clubbing, cyanosis or edema, no calf tenderness and no pedal edema Neuro: COMMON NORMALS: patient oriented x3, moves all extremities, no focal motor deficits and no sensory deficits noted SENSORIUM/ORIENTATION: Yes alert, Yes oriented to person and Yes oriented to place CRANIAL NERVES: Yes CN normal except as noted Skin: COMMON NORMALS: no rashes or lesions noted, no wounds and turgor normal GENERAL SKIN EXAM: no rashes or lesions noted and turgor normal Course 2 Reevaluation(s): Reevaluation #1: Patient doing well. Labs are noted including borderline low potassium level. Will go ahead and orally replete this. Her initial troponin is mildly elevated however this point does not appear that patient is having evidence of ACS etc. I discussed findings with the patient including her very minimal elevation of troponin. At no time did she experience chest pain shortness of breath, etc. Oertli is consistent with a vagal reaction given her nausea from the oral contrast. We reviewed continued observation in the emergency department after she receives her potassium repletion and she voiced understanding of that turned to but is more comfortable with going home at this time. Time: 18:10 Vital Signs: Vital signs: Vital Signs Pulse Rate 83 05/30/23 16:36 Respiratory Rate 20 H 05/30/23 16:36 Blood Pressure 116/89 05/30/23 16:36 Pulse Oximetry 99 05/30/23 16:36 Oxygen Delivery Me thod Room Air 05/30/23 16:36 MDM - General Adult Medical Decision Making This patient was transported to the emergency department from radiology after rapid response when she had a near syncopal episode related to nausea from oral contrast that was given prior to her CT scan. She denied any freq seating symptoms such as chest pain shortness of breath. There was no focal weakness slurring of speech or other symptoms to suggest central nervous system issues. Initial evaluation in the emergency department revealed her to be alert awake with an unremarkable physical examination. Initial EKG showed no ischemic changes. Monitor revealed normal sinus rhythm without any evidence of arrhythmia. She received the benefit of some screening laboratories as well as chest x-ray and continued observation. She remained stable with normal vital signs. She was taken to radiology and received her scheduled CT scan that was ordered by oncology. Her borderline low potassium was repleted orally. She did have a very minimal elevation in her initial troponin was not felt that this was the result of any ischemic or myocardial injury and the patient was desirous to being discharged from the emergency department she felt at her baseline. We discussed return precautions in detail. Medical Records I reviewed the patient's medical records. Lab Data I reviewed the patient's lab results. 05/30/23 16:30 05/30/23 16:30 Radiology Impressions Chest X-Ray 05/30/23 16:47 IMPRESSION: No acute infiltrate. Laboratory Results WBC 9.53 10^3/uL (3.29-11.43) 05/30/23 16:30 RBC 4.18 10^6/uL (3.85-5.65) 05/30/23 16:30 Hgb 12.90 g/dL (11.27-16.99) 05/30/23 16:30 Hct 38.5 % (36-47) 05/30/23 16:30 MCV 92.1 fl (85-98) 05/30/23 16:30 MCH 30.9 pg (27-33) 05/30/23 16:30 MCHC 33.5 g/dL (30-55) 05/30/23 16:30 RDW 12.7 % (12.1-15.1) 05/30/23 16:30 Plt Count 283 10^3/cmm (157-399) 05/30/23 16:30 MPV 9.9 fL (7.4-10.4) 05/30/23 16:30 Neut % (Auto) 57.1 % 05/30/23 16:30 Lymph % (Auto) 32.6 % 05/30/23 16:30 [place] % (Auto) 7.6 % 05/30/23 16:30 Eos % (Auto) 1.6 % 05/30/23 16:30 Baso % (Auto) 0.7 % 05/30/23 16:30 Neut # (Auto) 5.44 10^3/uL (1.8-7.7) 05/30/23 16:30 Lymph # (Auto) 3.1 10^3/uL (0.8-4.8) 05/30/23 16:30 [place] # (Auto) 0.7 10^3/uL (0.2-0.9) 05/30/23 16:30 Eos # (Auto) 0.2 10^3/uL (0.0-0.8) 05/30/23 16:30 Baso # (Auto) 0.1 10^3/uL (0.0-0.1) 05/30/23 16:30 Nucleated RBC % (auto) 0 % 05/30/23 16:30 Nucleated RBCs # 0.0 /100WBC 05/30/23 16:30 Sodium 141 mmol/L (136-145) 05/30/23 16:30 Potassium 3.0 mmol/L (3.5-5.1) L 05/30/23 16:30 Chloride 110 mmol/L (98-107) H 05/30/23 16:30 Carbon Dioxide 19 mmol/L (22-29) L 05/30/23 16:30 Anion Gap 15.0 (5-19) 05/30/23 16:30 BUN 13 mg/dL (8-23) 05/30/23 16:30 Creatinine 0.7 mg/dL (0.5-0.9) 05/30/23 16:30 GFR Calculation Not Reportable 05/30/23 16:30 Glucose 108 mg/dL (65-115) 05/30/23 16:30 Calculated Osmolality 293 mOsm/kg (285-295) 05/30/23 16:30 Calcium 7.2 mg/dL (8.5-10.5) L 05/30/23 16:30 Total Bilirubin 0.3 mg/dL (0.15-1.2) 05/30/23 16:30 AST 18 U/L (0-32) 05/30/23 16:30 ALT 30 U/L (0-33) 05/30/23 16:30 Alkaline Phosphatase 73 U/L (35-105) 05/30/23 16:30 Troponin T Baseline 13 ng/L (0-10) H 05/30/23 16:30 Total Protein 4.9 g/dL (6.6-8.7) L 05/30/23 16:30 Albumin 3.5 g/dL (3.5-5.2) 05/30/23 16:30 Globulin 1.4 g/dL (1.3-4.6) 05/30/23 16:30 All radiology interpretation(s) finalized by discharge EKG Data EKG 1: I personally reviewed and interpreted this EKG as follows: Interpretation: Resting EKG reveals a ventricular rate of 77 bpm. Normal MS interval, QRS duration, corrected QT interval. Normal axis. Compared with prior tracing at this facility there is no acute changes to suggest acute ischemia at this time. Computer generated interpretation: Chest X-Ray 05/30/23 16:47 IMPRESSION: No acute infiltrate. Discharge Plan Discharge Patient Disposition: Home Clinical Impression: Vasovagal near syncope, Hypokalemia Condition: Stable Prescriptions: New potassium chloride 10 mEq capsule, extended release 10 meq PO DAILY Qty: 7 0RF No Action albuterol sulfate 90 mcg/actuation HFA aerosol inhaler 2 puff INHALATION Q6H PRN (Reason: Shortness Of Breath) famotidine 40 mg tablet 40 mg PO DAILY atorvastatin 80 mg tablet 80 mg PO DAILY tramadol 50 mg tablet 50 mg PO Q6H PRN (Reason: Pain) lisinopril 20 mg tablet 20 mg PO DAILY aspirin [Aspir-81] 81 mg tablet,delayed release (DR/EC) 81 mg PO DAILY gabapentin [Neurontin] 300 mg capsule 300 mg PO BID omega-3 fatty acids [Fish Oil Concentrate] 1,000 mg capsule 1,000 mg PO DAILY ferrous sulfate 325 mg (65 mg iron) tablet 325 mg PO .WEEKLY PRN (Reason: .low iron) trazodone 50 mg tablet 50 mg PO DAILY prasugrel [Effient] 10 mg tablet 10 mg PO DAILY Hold Instructions: Resume on 03/29/23. meloxicam 7.5 mg tablet 7.5 mg PO DAILY Hold Instructions: Resume on 03/29/23. omeprazole 20 mg capsule,delayed release(DR/EC) 20 mg PO DAILY (DME) CAM boot See Rx Instructions .Route .MEDSUPPLY Qty: 1 0RF Rx Instructions: As directed nitroglycerin [Nitrostat] 0.4 mg tablet, sublingual 0.4 mg SUBLINGUAL Q5M PRN (Reason: chest pain) Qty: 60 2RF Rx Instructions: do not exceed 3 doses per episode tamsulosin 0.4 mg capsule See Rx Instructions .ROUTE .COMPLEX Qty: 90 3RF Dose Instruction: TAKE 1 CAPSULE DAILY Rx Instructions: TAKE 1 CAPSULE DAILY metformin 500 mg tablet 500 mg PO DAILY Discharge Orders: Discharge ED (Routine); Ordered 05/30/23 Ordered By: Babak Valdez Referrals: Kwame,Tish Janie, DO [Primary Care Provider] - Discharge Diet: Usual diet Discharge Activity: Increase activity as tolerated Patient Instructions: Opioid Safety, Pain Management Activity Restrictions/Additional Instructions: As we discussed the episode you had in radiologist probably related to nausea from the oral contrast. We gave you oral potassium while you are in the emergency department because your potassium level was slightly low and we have provided a prescription for oral potassium to take for the next week. If you develop any concerning symptoms such as chest pain shortness of breath palpitations etc. return to the emergency department for reevaluation otherwise follow-up with your oncologist for discussion of your CT scan report. Coding Level of Care Code ED Delivery Driver for Ronnie Gudino
[2023-05-30 17:09] LABS: Basophils # 0.1 10^3/uL (0.0-0.1); Basophils % 0.7 %; Eosinophils # 0.2 10^3/uL (0.0-0.8); Eosinophils % 1.6 %; Hematocrit 38.5 % (36-47); Lymphocytes # 3.1 10^3/uL (0.8-4.8); Lymphocytes % 32.6 %; Mean Corpuscular HGB Conc 33.5 g/dL (30-55); Mean Corpuscular Hemoglobin 30.9 pg (27-33); Mean Corpuscular Volume 92.1 fl (85-98); Mean Platelet Volume 9.9 fL (7.4-10.4); Monocytes # 0.7 10^3/uL (0.2-0.9); Monocytes % 7.6 %; Neutrophils # 5.44 10^3/uL (1.8-7.7); Neutrophils % 57.1 %; Nucleated Red Blood Cells % 0 %; Platelet Count 283 10^3/cmm (157-399); Red Blood Count 4.18 10^6/uL (3.85-5.65); Red Cell Distribution Width 12.7 % (12.1-15.1); White Blood Count 9.53 10^3/uL (3.29-11.43)
[2023-05-30] MEDS: sodium chloride 0.9% 1,000 ML 999 ML IV (17:13)
[2023-05-30 17:41] LABS: Troponin(5th) Baseline 13 ng/L (0-10)
[2023-05-30 17:46] LABS: Alanine Aminotransferase 30 U/L (0-33); Albumin Level 3.5 g/dL (3.5-5.2); Alkaline Phosphatase 73 U/L (35-105); Aspartate Amino Transferase 18 U/L (0-32); Blood Urea Nitrogen 13 mg/dL (8-23); Calcium 7.2 mg/dL (8.5-10.5); Carbon Dioxide 19 mmol/L (22-29); Chloride 110 mmol/L (98-107); Globulin 1.4 g/dL (1.3-4.6); Glucose 108 mg/dL (65-115); Osmolality Calculated 293 mOsm/kg (285-295); Sodium 141 mmol/L (136-145); Total Bilirubin 0.3 mg/dL (0.15-1.2); Total Protein 4.9 g/dL (6.6-8.7)
[2023-05-30] MEDS: potassium bicarb 25 mEq Tablet 50 MEQ PO (18:24)
== END 2023-05-30 18:32 | disposition home or self-care (01) ==
PROVIDERS: Emergency Provider Emergency Medicine; PCP Family Medicine
DX: R55 Syncope and collapse (principal); E87.6 Hypokalemia; Z79.82 Long term (current) use of aspirin; Z79.84 Long term (current) use of oral hypoglycemic drugs; Z87.891 Personal history of nicotine dependence; J44.9 Chronic obstructive pulmonary disease, unspecified; E78.5 Hyperlipidemia, unspecified; I25.2 Old myocardial infarction
CPT/HCPCS: 71045; 71260; 74177; 80053; 82565; 84484; 84520; 85025; 93005; 96360; 99285; J7030; Q9967

== ENCOUNTER → 2023-07-24 10:09 | Outpatient (BNVA) | payer MEDICARE, MEDICAID, SELFPAY | PROVIDERS: PCP Family Medicine; Referring Provider Internal Medicine; Visit Provider Surgery | DX: C20 Malignant neoplasm of rectum (principal); K63.5 Polyp of colon | CPT/HCPCS: 99214 ==

== ENCOUNTER 2023-07-31 14:32 | Outpatient (CLI) | payer MEDICARE, MEDICAID, SELFPAY ==
--- NOTE | 2023-07-31 14:36 | CT_ITS ---
WS: [id number] CT CHEST, ABDOMEN, AND PELVIS TECHNIQUE: Contrast-enhanced CT of the chest, abdomen, and pelvis with coronal and sagittal reformatt ed images. CLINICAL INFORMATION: rectal cancer COMPARISON: CT chest abdomen pelvis 05/30/2023 DLP: 944.[address] scans at [facility] use at least one of these dose optimization techniques: automated e xposure control; mA and/or kV adjustment per patient size (includes targeted exams where dose is matc hed to clinical indication); or iterative reconstruction. CT CHEST: Lungs are well aerated. No acute pulmonary infiltrates. A few tiny subpleural nodules RIGHT upper and RIGHT lower lobes. No new suspicious pulmonary parenchymal opacities. Fibrosis in the lingula. Marlin l caliber thoracic aorta. Aortic calcification. Coronary calcification. Proximal main pulmonary arter ies are normal. No mediastinal or hilar lymphadenopathy. No axillary lymphadenopathy. Prior postopera tive changes RIGHT mastectomy. CT ABDOMEN AND PELVIS: Prior hysterectomy and cholecystectomy. Diffuse fatty infiltration of the liver. Incidental hepatic c yst along the middle hepatic vein unchanged. Normal portal vein and splenic vein. Prior cholecystecto my. Splenic granulomas. Small esophageal hernia. Normal pancreas. Normal spleen. Adrenal glands are n ormal. Bilateral renal cysts. No hydronephrosis. Aortic calcification. Normal caliber abdominal aorta . Sigmoid diverticulosis. LEFT eccentric rectal wall nodular mass compatible with rectal carcinoma similar to the prior examina tion. Previously described LEFT perirectal lymph node measuring 5 mm is unchanged. No new lymphadenop athy. Normal appendix. Fat-containing umbilical hernia. IMPRESSION: 1. No evidence of metastatic disease in the chest. 2. LEFT eccentric nodular rectal wall thickening similar to the prior examination compatible with hi story of rectal carcinoma. Previously described LEFT perirectal lymph node measuring 5 mm is unchange d. No new perirectal lymphadenopathy. 3. Diffuse fatty infiltration of the liver. 4. Small esophageal hiatal hernia. 5. Bilateral renal cysts.
== END 2023-07-31 14:33 | disposition home or self-care (01) ==
LOC: RAD 14:33
PROVIDERS: PCP Family Medicine; Visit Provider Internal Medicine
DX: C20 Malignant neoplasm of rectum (principal); K76.0 Fatty (change of) liver, not elsewhere classified; K44.9 Diaphragmatic hernia without obstruction or gangrene; N28.1 Cyst of kidney, acquired
CPT/HCPCS: 71260; 74177

== ENCOUNTER 2023-08-08 10:36 | Oncology outpatient (recurring) (ONCR) | payer MEDICARE, MEDICAID, SELFPAY ==
[2023-07-15 10:23] LABS: Basophils # 0.1 10^3/uL (0.0-0.1); Eosinophils # 0.2 10^3/uL (0.0-0.8); Eosinophils % 2.5 %; Lymphocytes # 2.3 10^3/uL (0.8-4.8); Lymphocytes % 38.1 %; Mean Corpuscular HGB Conc 33.4 g/dL (30-55); Mean Corpuscular Hemoglobin 30.6 pg (27-33); Mean Corpuscular Volume 91.7 fl (85-98); Mean Platelet Volume 10.4 fL (7.4-10.4); Monocytes # 0.4 10^3/uL (0.2-0.9); Monocytes % 6.2 %; Neutrophils # 3.11 10^3/uL (1.8-7.7); Nucleated Red Blood Cells % 0 %; Platelet Count 276 10^3/cmm (157-399); Red Blood Count 4.47 10^6/uL (3.85-5.65); Red Cell Distribution Width 13.1 % (12.1-15.1); White Blood Count 5.98 10^3/uL (3.29-11.43)
[2023-07-15 11:05] LABS: Alanine Aminotransferase 30 U/L (0-33); Albumin Level 4.6 g/dL (3.5-5.2); Alkaline Phosphatase 100 U/L (35-105); Anion Gap 18.1 (5-19); Aspartate Amino Transferase 20 U/L (0-32); Blood Urea Nitrogen 12 mg/dL (8-23); Calcium 9.3 mg/dL (8.5-10.5); Carbon Dioxide 24 mmol/L (22-29); Carcinoembryonic Antigen 3.6 ng/mL (0.0-4.7); Chloride 102 mmol/L (98-107); Creatinine Clr Calc Pharmacy 57.3087; Globulin 2.5 g/dL (1.3-4.6); Glucose 132 mg/dL (65-115); Osmolality Calculated 292 mOsm/kg (285-295); Potassium 4.1 mmol/L (3.5-5.1); Sodium 140 mmol/L (136-145); Total Bilirubin 0.4 mg/dL (0.15-1.2); Total Protein 7.1 g/dL (6.6-8.7)
[2023-07-15 11:17] LABS: Hepatitis A Antibody IgM Non-Reactive (Nonreactive); Hepatitis B Core AB, Total Non-Reactive (Nonreactive); Hepatitis B Surface AB < 3.5 (11.5-1000); Hepatitis B Surface Antigen Non-Reactive (Nonreactive); Hepatitis C Virus Antibody Non-Reactive (Nonreactive)
--- NOTE | 2023-07-16 13:51 | N.ONRAD NP_ITS ---
Radiation Oncology New Patient Visit Patient: Maura Castañeda MR#: [id number] : 1950> Age: 73> Sex: Female> Dictated by: Dr. Sparkle Mina Date of Service: 07/16/2023 Referring Physician(s) : Dr. Zavala Diagnosis: Invasive adenocarcinoma of the rectum Radiotherapy to date: Summary > she had radiation for breast cancer back in the in [place]. She apparently also had chemotherapy.. Chief Complaint / History of Present Illness: Patient is a 73-year-old lady who says 4 years ago she had a colonoscopy and was told she had many polyps. She had a repeat colonoscopy 2 years later and again had multiple polyps removed. She just had her most recent colonoscopy in March and was once again found to have multiple polyps as well as a mass in the rectum. The mass in the rectum was friable biopsies were taken and it was consistent with a moderately differentiated adenocarcinoma of the rectum. One of the biopsies from the polyp in the descending colon which was associated with a tubular adenoma was also positive for adenocarcinoma. She has had a CT scan which shows the mass in the rectum as well as a perirectal lymph node. She also has had an MRI of her pelvis which did show that the mass in the rectum was 3 cm from the anal verge and was a total length of 6 cm. It was circumferential and staged as a T3 N1 as there were 2 mesorectal lymph nodes associated that appeared to be involved. She is seen today in consultation to discuss the radiation portion of combined modality therapy. Current Medications: albuterol sulfate 90 mcg/actuation 2 puffs inhalation Q6H PRN aspirin (Aspir-) 81 mg PO DAILY atorvastatin 80 mg PO DAILY [CAM boot As directed] famotidine 40 mg PO DAILY ferrous sulfate 325 mg PO .WEEKLY PRN gabapentin (Neurontin) 300 mg PO BID lisinopril 20 mg PO DAILY meloxicam 7.5 mg PO DAILY metformin 500 mg PO DAILY nitroglycerin (Nitrostat) 0.4 mg sublingual Q5M PRN omega-3 fatty acids (Fish Oil Concentrate) 1,000 mg PO DAILY omeprazole 20 mg PO DAILY potassium chloride ER 10 mEq PO DAILY prasugrel (Effient) 10 mg PO DAILY tamsulosin TAKE 1 CAPSULE DAILY tramadol 50 mg PO Q6H PRN trazodone 50 mg PO DAILY Allergies: Medical History: History of colon polyps GERD (gastroesophageal reflux disease) Meniere disease Rheumatoid arthritis Lateral cystocele Acute cystitis with hematuria Gross hematuria Recurrent UTI Incomplete bladder emptying Tobacco abuse COPD (chronic obstructive pulmonary disease) Hyperlipidemia HTN (hypertension) Myocardial infarction ASHD (arteriosclerotic heart disease. Surgical History: S/P tonsillectomy Status post tubal ligation S/P hysterectomy S/P lumpectomy of breast S/P cholecystectomy S/P PTCA (percutaneous transluminal english Family History: Social History: She currently lives alone as she says in [place]. Smoking and tobacco/nicotine status: former use of tobacco/nicotine Alcohol intake: unknown Substance/Drug Use: unknown Adopted: No Caregiver/support person: No Lives independently: No Household members: None Marital status: Current occupational status: retired Current Complaints / Review of Systems: . She currently denies any focal symptoms related to the cancer Vital Signs: Performed on 07/16/2023 1:10 PM BMI - 30.874 kg/m2 (high), Height - 62 in, Weight - 168.8 lbs, Temperature - 96.6 f, Pulse - 94 /min, Respiration - 18 /min, O2 Sat - 97 %, Pain - 0, Fatigue - 0 and BP - 156/ 88 mm(hg)(high/). Physical Exam: General: Patient is in no apparent distress sitting comfortably in the chair HEENT: Normocephalic atraumatic, pupils are equal round reactive to light, extraocular muscles intact. Lungs: Clear to auscultation, respiratory rate is regular nonlabored Cardiovascular: Regular rate and rhythm Abdomen: Soft and nontender without hepatomegaly Extremities: Without clubbing cyanosis or edema Skin: Warm and dry without ecchymoses or rash Neurological: Alert and orient x 3. Gait speech within normal limits. 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 Schmidt the findings on her MRI. We talked about the different things that she has been through. We talked about her previous radiation. She did have a bit of a brisk skin reaction at that time. I reviewed with her that this treatment would be a little bit different. We did talk about the simulation process and the daily treatment regiment. She understands that we will take 5 weeks of treatment with daily visits. We reviewed the risks and side effects of the treatment both acute and long-term. This point she had no additional questions or concerns. She is anxious to get treatment started. She does understand that once we finished with her treatment the surgeon would proceed with evaluation to decide on the need for initial surgery or continued close observation. We did talk about how at some point she will need to have surgery most likely for the lesion in the descending colon. Told her that would be a conversation between her and her surgeon. Signed by: 07/16/2023 1:50:08 PM <<Signature on File>> Time spent with patient:45 CPT Code: CPT Code:
[2023-08-05 09:27] LABS: Basophils # 0.1 10^3/uL (0.0-0.1); Eosinophils # 0.2 10^3/uL (0.0-0.8); Eosinophils % 2.5 %; Hematocrit 47.1 % (36-47); Lymphocytes # 2.3 10^3/uL (0.8-4.8); Lymphocytes % 33.9 %; Mean Corpuscular HGB Conc 32.3 g/dL (30-55); Mean Corpuscular Hemoglobin 30.3 pg (27-33); Mean Platelet Volume 10.2 fL (7.4-10.4); Monocytes # 0.4 10^3/uL (0.2-0.9); Monocytes % 6.4 %; Neutrophils # 3.71 10^3/uL (1.8-7.7); Neutrophils % 55.6 %; Nucleated Red Blood Cells % 0 %; Platelet Count 278 10^3/cmm (157-399); Red Blood Count 5.01 10^6/uL (3.85-5.65); Red Cell Distribution Width 12.8 % (12.1-15.1); White Blood Count 6.69 10^3/uL (3.29-11.43)
--- NOTE | 2023-08-05 10:10 | ONCRAD TMN_ITS ---
Radiation Oncology Weekly Treatment Management Patient: Garry Cole MR#: [id number] : 1950> Attending Physician: Dr. Sparkle Mina Date of Service: 08/05/2023 Fractions: Referring Physician(s) : Dr Zavala Diagnosis: C20 - Malignant neoplasm of rectum, Diagnosed 03/26/2023 (Active) Radiotherapy to date: Course: Pelvis 2023, Treatment Site: Pelvis 50Gy, Ref. ID: [id number], Energy: 15X, Dose/Fx (cGy): 200, #Fx: , Dose Correction (cGy): 0, Total Dose Delivered (cGy): 200, Start Date: 08/05/2023, Elapsed Days: 0 Reason for visit: The patient is being seen today as part of their regularly scheduled weekly on treatment visits to assess for acute toxicities from radiotherapy. Review of Systems: Patient has had no changes as yet Vital Signs: Performed on 08/05/2023 9:51 AM BMI - 30.508 kg/m2 (high), Height - 62 in, Weight - 166.8 lbs, Temperature - 96.9 f, Pulse - 88 /min, Respiration - 18 /min, O2 Sat - 96 %, Pain - 0, Fatigue - 0 and BP - 165/ 103 mm(hg)(high). Physical Exam: Will continue with her treatments today. She had no questions or concerns about her first day. Her blood pressure was a little high today we will recheck it next week. I reassured her that the first day is often stressful. Imaging: Radiation therapy imaging related to accurate target localization (i.e. KV, MV and CBCT) was reviewed. Appropriate changes, if any, were made to ensure treatment accuracy. Plan: Signed by: Dr. Sparkle Mina 08/05/2023 10:09:36 AM
[2023-08-05 10:23] LABS: Carcinoembryonic Antigen 4.4 ng/mL (0.0-4.7)
[2023-08-05 10:34] LABS: Alanine Aminotransferase 40 U/L (0-33); Albumin Level 4.8 g/dL (3.5-5.2); Alkaline Phosphatase 109 U/L (35-105); Anion Gap 17.4 (5-19); Aspartate Amino Transferase 23 U/L (0-32); Blood Urea Nitrogen 12 mg/dL (8-23); Calcium 9.7 mg/dL (8.5-10.5); Carbon Dioxide 25 mmol/L (22-29); Chloride 102 mmol/L (98-107); Creatinine Clr Calc Pharmacy 62.1973; Globulin 2.7 g/dL (1.3-4.6); Glucose 132 mg/dL (65-115); Osmolality Calculated 292 mOsm/kg (285-295); Potassium 4.4 mmol/L (3.5-5.1); Sodium 140 mmol/L (136-145); Total Bilirubin 0.4 mg/dL (0.15-1.2); Total Protein 7.5 g/dL (6.6-8.7)
== END 2023-08-10 23:59 | disposition home or self-care (01) ==
PROVIDERS: Internal Medicine; PCP Family Medicine; Visit Provider Radiology Radiation Oncology
DX: Z51.0 Encounter for antineoplastic radiation therapy (principal); C20 Malignant neoplasm of rectum
CPT/HCPCS: 36415; 77300; 77301; 77334; 77338; 77386; 77470; 80053; 82378; 85025; 86705; 86706; 86709; 86803; 87340; 99024; 99204; 99205; 99215

== ENCOUNTER 2023-08-13 13:37 | Outpatient (CLI) | payer MEDICARE, MEDICAID, SELFPAY ==
--- NOTE | 2023-08-13 14:30 | MR_ITS ---
WS: [id number] MRI PELVIS WITH AND WITHOUT CONTRAST. COMPARISON: 06/26/2023 MRI pelvis, CT 07/31/2023 Multiplanar, multisequence imaging is performed with and without contrast. MultiHance 20 mL IV. History: History of rectal cancer. Restaging. The enhancing rectal tumor previously described is reidentified involving the LEFT lateral rectum. Re sidual treated soft tissue tumor extends over a length of 3.6 cm with a maximum diameter of 1.9 cm. T here is mild narrowing of the rectal lumen. As compared to the prior examination that was a dedicated rectal staging MRI there has been a decrease in overall size. Length of the tumor on the prior study was 6 cm. There are a few small LEFT mesorectal fat lymph nodes. These are subcentimeter with the largest measu ring 6 mm. Similar in appearance to the prior examination. No new lymph nodes are identified. No asci nati. Numerous diverticula noted in the sigmoid colon. No additional enhancing masses are noted in the dist al colon. The bladder is negative. No inguinal adenopathy. IMPRESSION: 1. Moderate decrease in size of the previously described rectal neoplasm. Neoplasm now extends over a length of 3.6 cm as compared to 6 cm on the prior study. Maximum transverse diameter of 1.9 cm with mild narrowing of the lumen. No extension of tumor. 2. Small LEFT mesorectal fat lymph nodes are not enlarged. No new lymph nodes. 3. No ascites.
[2023-08-13] MEDS: gadobenate dimeglumine 20 mL vial IV (15:17)
== END 2023-08-13 13:38 | disposition home or self-care (01) ==
LOC: RAD 13:38
PROVIDERS: PCP Family Medicine; Visit Provider Internal Medicine
DX: C20 Malignant neoplasm of rectum (principal)
CPT/HCPCS: 72197; A9577

== ENCOUNTER 2023-08-28 12:57 | Oncology outpatient (recurring) (ONCR) | payer MEDICARE, MEDICAID, SELFPAY ==
[2023-08-12 12:47] LABS: Basophils % 0.7 %; Eosinophils # 0.1 10^3/uL (0.0-0.8); Hematocrit 39.2 % (36-47); Lymphocytes # 1.1 10^3/uL (0.8-4.8); Lymphocytes % 25.9 %; Mean Corpuscular HGB Conc 33.4 g/dL (30-55); Mean Corpuscular Hemoglobin 30.9 pg (27-33); Mean Corpuscular Volume 92.5 fl (85-98); Mean Platelet Volume 10.1 fL (7.4-10.4); Monocytes # 0.3 10^3/uL (0.2-0.9); Monocytes % 6.3 %; Neutrophils # 2.84 10^3/uL (1.8-7.7); Neutrophils % 64.4 %; Nucleated Red Blood Cells % 0 %; Platelet Count 253 10^3/cmm (157-399); Red Blood Count 4.24 10^6/uL (3.85-5.65); Red Cell Distribution Width 12.6 % (12.1-15.1); White Blood Count 4.41 10^3/uL (3.29-11.43)
[2023-08-12 13:05] LABS: Alanine Aminotransferase 33 U/L (0-33); Albumin Level 4.4 g/dL (3.5-5.2); Alkaline Phosphatase 107 U/L (35-105); Anion Gap 13.4 (5-19); Aspartate Amino Transferase 24 U/L (0-32); Blood Urea Nitrogen 15 mg/dL (8-23); Calcium 9.7 mg/dL (8.5-10.5); Carbon Dioxide 27 mmol/L (22-29); Chloride 106 mmol/L (98-107); Globulin 2.5 g/dL (1.3-4.6); Glucose 118 mg/dL (65-115); Osmolality Calculated 296 mOsm/kg (285-295); Potassium 4.4 mmol/L (3.5-5.1); Sodium 142 mmol/L (136-145); Total Bilirubin 0.3 mg/dL (0.15-1.2); Total Protein 6.9 g/dL (6.6-8.7)
--- NOTE | 2023-08-12 13:26 | ONCRAD TMN_ITS ---
Radiation Oncology Weekly Treatment Management Patient: Maura Castañeda MR#: [id number] : 1950 Attending Physician: Dr. Sparkle Mina Date of Service: 08/12/2023 Fractions: 5 out of 25 along with capecitabine Referring Physician(s) : Diagnosis: C20 - Malignant neoplasm of rectum, Diagnosed 03/26/2023 (Active) Radiotherapy to date: Course: Pelvis 2023, Treatment Site: Pelvis 50Gy, Ref. ID: [id number], Energy: 15X, Dose/Fx (cGy): 200, #Fx: 5 / 25, Dose Correction (cGy): 0, Total Dose Delivered (cGy): 1,000, Start Date: 08/05/2023, Elapsed Days: 7 Reason for visit: The patient is being seen today as part of their regularly scheduled weekly on treatment visits to assess for acute toxicities from radiotherapy. Review of Systems: Patient has had no nausea vomiting or diarrhea. She remains in good spirits. Vital Signs: Performed on 08/12/2023 12:59 PM BMI - 31.203 kg/m2 (high), Height - 62 in, Weight - 170.6 lbs, Temperature - 96.7 f, Pulse - 97 /min, Respiration - 18 /min, O2 Sat - 98 %, Pain - 0, Fatigue - 3 and BP - 173/ 92 mm(hg)(high). Physical Exam: No changes on exam Imaging: Radiation therapy imaging related to accurate target localization (i.e. KV, MV and CBCT) was reviewed. Appropriate changes, if any, were made to ensure treatment accuracy. Plan: Will continue with her treatments as planned. I did ask her to check her blood pressure at home. She does comment that occasionally it will run higher than her normal. Signed by: Dr. Sparkle Mina 08/12/2023 1:25:01 PM
[2023-08-19 12:44] LABS: Basophils % 0.8 %; Eosinophils # 0.1 10^3/uL (0.0-0.8); Eosinophils % 3.7 %; Hematocrit 41.7 % (36-47); Lymphocytes # 0.7 10^3/uL (0.8-4.8); Mean Corpuscular HGB Conc 33.3 g/dL (30-55); Mean Corpuscular Volume 92.9 fl (85-98); Mean Platelet Volume 9.7 fL (7.4-10.4); Monocytes # 0.3 10^3/uL (0.2-0.9); Monocytes % 9.3 %; Neutrophils # 2.35 10^3/uL (1.8-7.7); Neutrophils % 66.6 %; Nucleated Red Blood Cells % 0 %; Platelet Count 217 10^3/cmm (157-399); Red Blood Count 4.49 10^6/uL (3.85-5.65); Red Cell Distribution Width 13.5 % (12.1-15.1); White Blood Count 3.53 10^3/uL (3.29-11.43)
[2023-08-19 13:02] LABS: Alanine Aminotransferase 36 U/L (0-33); Albumin Level 4.3 g/dL (3.5-5.2); Alkaline Phosphatase 104 U/L (35-105); Anion Gap 13.1 (5-19); Aspartate Amino Transferase 21 U/L (0-32); Blood Urea Nitrogen 12 mg/dL (8-23); Calcium 9.4 mg/dL (8.5-10.5); Carbon Dioxide 25 mmol/L (22-29); Chloride 105 mmol/L (98-107); Globulin 2.5 g/dL (1.3-4.6); Glucose 138 mg/dL (65-115); Osmolality Calculated 290 mOsm/kg (285-295); Potassium 4.1 mmol/L (3.5-5.1); Sodium 139 mmol/L (136-145); Total Bilirubin 0.3 mg/dL (0.15-1.2); Total Protein 6.8 g/dL (6.6-8.7)
--- NOTE | 2023-08-19 13:57 | ONCRAD TMN_ITS ---
Radiation Oncology Weekly Treatment Management Patient: Maura Castañeda MR#: [id number] : 1950 Attending Physician: Dr. Sparkle Mina Date of Service: 08/19/2023 Fractions: 10 out of 25 along with chemotherapy Referring Physician(s) : Diagnosis: C20 - Malignant neoplasm of rectum, Diagnosed 03/26/2023 (Active) Radiotherapy to date: Course: Pelvis 2023, Treatment Site: Pelvis 50Gy, Ref. ID: [id number], Energy: 15X, Dose/Fx (cGy): 200, #Fx: 10 25, Dose Correction (cGy): 0, Total Dose Delivered (cGy): 2,000, Start Date: 08/05/2023, Elapsed Days: 14 Reason for visit: The patient is being seen today as part of their regularly scheduled weekly on treatment visits to assess for acute toxicities from radiotherapy. Review of Systems: Patient denies any symptoms at all. Vital Signs: Performed on 08/19/2023 1:35 PM BMI - 30.911 kg/m2 (high), Height - 62 in, Weight - 169 lbs, Temperature - 98.7 f, Pulse - 71 /min, Respiration - 18 /min, O2 Sat - 100 %, Pain - 0, Fatigue - 0 and BP - 175/ 84 mm(hg)(high/). Physical Exam: No changes on exam Imaging: Radiation therapy imaging related to accurate target localization (i.e. KV, MV and CBCT) was reviewed. Appropriate changes, if any, were made to ensure treatment accuracy. Plan: Will continue with treatments as planned. Patient is doing well without complications as yet. Signed by: Dr. Sparkle Mina 08/19/2023 1:56:42 PM
[2023-08-19 14:15] LABS: Carcinoembryonic Antigen 5.4 ng/mL (0.0-4.7)
[2023-08-26 12:45] LABS: Basophils % 0.6 %; Eosinophils # 0.2 10^3/uL (0.0-0.8); Eosinophils % 5.9 %; Lymphocytes # 0.6 10^3/uL (0.8-4.8); Lymphocytes % 17.1 %; Mean Corpuscular HGB Conc 33.8 g/dL (30-55); Mean Corpuscular Hemoglobin 31.4 pg (27-33); Mean Corpuscular Volume 92.6 fl (85-98); Mean Platelet Volume 9.2 fL (7.4-10.4); Monocytes # 0.4 10^3/uL (0.2-0.9); Monocytes % 10.9 %; Neutrophils # 2.08 10^3/uL (1.8-7.7); Neutrophils % 64.9 %; Nucleated Red Blood Cells % 0 %; Platelet Count 163 10^3/cmm (157-399); Red Blood Count 4.21 10^6/uL (3.85-5.65); Red Cell Distribution Width 14.6 % (12.1-15.1); White Blood Count 3.21 10^3/uL (3.29-11.43)
[2023-08-26 13:00] LABS: Alanine Aminotransferase 34 U/L (0-33); Albumin Level 4.3 g/dL (3.5-5.2); Alkaline Phosphatase 100 U/L (35-105); Anion Gap 13.7 (5-19); Aspartate Amino Transferase 22 U/L (0-32); Blood Urea Nitrogen 16 mg/dL (8-23); Calcium 9.4 mg/dL (8.5-10.5); Carbon Dioxide 26 mmol/L (22-29); Chloride 103 mmol/L (98-107); Creatinine Clr Calc Pharmacy 57.3087; Globulin 2.5 g/dL (1.3-4.6); Glucose 130 mg/dL (65-115); Osmolality Calculated 291 mOsm/kg (285-295); Potassium 3.7 mmol/L (3.5-5.1); Sodium 139 mmol/L (136-145); Total Bilirubin 0.2 mg/dL (0.15-1.2); Total Protein 6.8 g/dL (6.6-8.7)
--- NOTE | 2023-08-26 14:00 | ONCRAD TMN_ITS ---
Radiation Oncology Weekly Treatment Management Patient: Garry Cole MR#: [id number] : 1950> Attending Physician: Dr. Sparkle Mina Date of Service: 08/26/2023 Fractions: 14 out of 25 Referring Physician(s) : Diagnosis: C20 - Malignant neoplasm of rectum, Diagnosed 03/26/2023 (Active) Radiotherapy to date: Course: Pelvis 2023, Treatment Site: Pelvis 50Gy, Ref. ID: [id number], Energy: 15X, Dose/Fx (cGy): 200, #Fx: , Dose Correction (cGy): 0, Total Dose Delivered (cGy): 2,800, Start Date: 08/05/2023, Elapsed Days: 21 Reason for visit: The patient is being seen today as part of their regularly scheduled weekly on treatment visits to assess for acute toxicities from radiotherapy. Review of Systems: Patient had issues with diarrhea last week. She actually missed her treatment on Friday because of this. Over the weekend she was able to get under control by using Imodium. She is in good spirits today. She says everything is working well. Vital Signs: Performed on 08/26/2023 1:14 PM BMI - 30.655 kg/m2 (high), Height - 62 in, Weight - 167.6 lbs, Temperature - 96.7 f, Pulse - 96 /min, Respiration - 18 /min, O2 Sat - 97 %, Pain - 0, Fatigue - 10 and BP - 188/ 92 mm(hg)(high). Physical Exam: No changes on exam Imaging: Radiation therapy imaging related to accurate target localization (i.e. KV, MV and CBCT) was reviewed. Appropriate changes, if any, were made to ensure treatment accuracy. Plan: Continue with her treatments as planned. She only has 11 more along with her oral chemotherapy. Signed by: Dr. Sparkle Mina 08/26/2023 1:58:38 PM
== END 2023-08-28 23:59 | disposition home or self-care (01) ==
PROVIDERS: Internal Medicine; Nurse Practitioner Family; PCP Family Medicine; Visit Provider Radiology Radiation Oncology
DX: Z51.0 Encounter for antineoplastic radiation therapy (principal); C20 Malignant neoplasm of rectum
CPT/HCPCS: 36415; 77336; 77386; 80053; 82378; 85025; 99024; 99214

== ENCOUNTER 2023-09-09 13:30 | Oncology outpatient (recurring) (ONCR) | payer MEDICARE, MEDICAID, SELFPAY ==
[2023-09-02 11:34] LABS: Basophils % 0.6 %; Eosinophils # 0.2 10^3/uL (0.0-0.8); Eosinophils % 6.3 %; Hematocrit 39.5 % (36-47); Lymphocytes # 0.4 10^3/uL (0.8-4.8); Mean Corpuscular HGB Conc 34.2 g/dL (30-55); Mean Corpuscular Hemoglobin 32.3 pg (27-33); Mean Corpuscular Volume 94.5 fl (85-98); Mean Platelet Volume 9.1 fL (7.4-10.4); Monocytes # 0.3 10^3/uL (0.2-0.9); Monocytes % 8.3 %; Neutrophils # 2.52 10^3/uL (1.8-7.7); Neutrophils % 72.2 %; Nucleated Red Blood Cells % 0 %; Platelet Count 165 10^3/cmm (157-399); Red Blood Count 4.18 10^6/uL (3.85-5.65); Red Cell Distribution Width 15.6 % (12.1-15.1); White Blood Count 3.49 10^3/uL (3.29-11.43)
[2023-09-02 11:49] LABS: Alanine Aminotransferase 36 U/L (0-33); Albumin Level 4.1 g/dL (3.5-5.2); Alkaline Phosphatase 109 U/L (35-105); Aspartate Amino Transferase 21 U/L (0-32); Blood Urea Nitrogen 14 mg/dL (8-23); Calcium 9.2 mg/dL (8.5-10.5); Carbon Dioxide 23 mmol/L (22-29); Chloride 105 mmol/L (98-107); Globulin 2.5 g/dL (1.3-4.6); Glucose 190 mg/dL (65-115); Osmolality Calculated 292 mOsm/kg (285-295); Sodium 138 mmol/L (136-145); Total Bilirubin 0.3 mg/dL (0.15-1.2); Total Protein 6.6 g/dL (6.6-8.7)
--- NOTE | 2023-09-02 13:48 | ONCRAD TMN_ITS ---
Radiation Oncology Weekly Treatment Management Patient: Maura Castañeda MR#: [id number] : 1950 Attending Physician: Dr. Sparkle Mina Date of Service: 09/02/2023 Fractions: 19 out of 25 Referring Physician(s) : Diagnosis: C20 - Malignant neoplasm of rectum, Diagnosed 03/26/2023 (Active) Radiotherapy to date: Course: Pelvis 2023, Treatment Site: Pelvis 50Gy, Ref. ID: [id number], Energy: 15X, Dose/Fx (cGy): 200, #Fx: , Dose Correction (cGy): 0, Total Dose Delivered (cGy): 3,800, Start Date: 08/05/2023, Elapsed Days: 28 Reason for visit: The patient is being seen today as part of their regularly scheduled weekly on treatment visits to assess for acute toxicities from radiotherapy. Review of Systems: Patient is actually feeling quite well. She has her bowel movements are more frequent than she would like so she took some Imodium this morning and now she has not gone since 9:00. She is also had a flare of hemorrhoids. Vital Signs: Performed on 09/02/2023 12:50 PM BMI - 30.581 kg/m2 (high), Height - 62 in, Weight - 167.2 lbs, Temperature - 97.6 f, Pulse - 101 /min (high), Respiration - 18 /min, O2 Sat - 98 %, Pain - 0, Fatigue - 0 and BP - 159/ 101 mm(hg)(high). Physical Exam: No apparent changes on exam Imaging: Radiation therapy imaging related to accurate target localization (i.e. KV, MV and CBCT) was reviewed. Appropriate changes, if any, were made to ensure treatment accuracy. Plan: Will continue with her treatments. She only has about a week left. I have recommended she use Preparation H for hemorrhoids and Desitin to keep the stool from touching her raw skin. Signed by: Dr. Sparkle Mina 09/02/2023 1:47:20 PM
== END 2023-09-09 23:59 | disposition home or self-care (01) ==
PROVIDERS: Internal Medicine; PCP Family Medicine; Visit Provider Radiology Radiation Oncology
DX: Z51.0 Encounter for antineoplastic radiation therapy; C20 Malignant neoplasm of rectum; Z53.9 Procedure and treatment not carried out, unspecified reason
CPT/HCPCS: 36415; 77336; 77386; 80053; 85025; 99024; 99214

== ENCOUNTER 2023-09-11 13:01 | Oncology outpatient (recurring) (ONCR) | payer MEDICARE, MEDICAID, SELFPAY ==
--- NOTE | 2023-09-12 08:21 | ONCRAD TMN_ITS ---
Radiation Oncology Weekly Treatment Management Patient: Maura Castañeda MR#: [id number] : 1950 Attending Physician: Jose Phelps Date of Service: 09/10/2023 Referring Physician(s) : Diagnosis: C20 - Malignant neoplasm of rectum, Diagnosed 03/26/2023 (Active) Radiotherapy to date: Course: Pelvis 2023, Treatment Site: Pelvis 50Gy, Ref. ID: [id number], Energy: 15X, Dose/Fx (cGy): 200, #Fx: 24 / 25, Dose Correction (cGy): 0, Total Dose Delivered (cGy): 4,800, Start Date: 08/05/2023, Elapsed Days: 36 Reason for visit: The patient is being seen today as part of their regularly scheduled weekly on treatment visits to assess for acute toxicities from radiotherapy. Review of Systems: Completes treatment tomorrow. Feeling Ok. No diarrhea, N or V. Will do garden planting. Needs FU with surgeon. Vital Signs: Performed on 09/10/2023 1:11 PM BMI - 30.325 kg/m2 (high), Height - 62 in, Weight - 165.8 lbs, Temperature - 97.5 f, Pulse - 104 /min (high), Respiration - 18 /min, O2 Sat - 97 %, Pain - 0, Fatigue - 5 and BP - 171/ 105 mm(hg)(high). Physical Exam: Imaging: Radiation therapy imaging related to accurate target localization (i.e. KV, MV and CBCT) was reviewed. Appropriate changes, if any, were made to ensure treatment accuracy. Plan: Good tolerance of treatment. We will assist in FU appointment scheduling with surgeon. Signed by: Jose Phelps 09/12/2023 8:19:24 AM Telemedicine Consent Patient seen today via Telemedicine by agreement and consent of patient. Telemedicine technology used during the visit include audio and, as available, review of images. This patient encounter is appropriate and reasonable under the circumstances given the patient???s particular presentation at this time. The patient has been advised of the potential risks and limitations of this mode of treatment (including but not limited to the absence of in-person examination) and has agreed to be treated in a remote fashion in spite of them. Any and all of the patient???s/patient???s family???s questions on this issue have been answered and I have made no promises or guarantees to the patient. The patient has also been advised to contact this office for worsening conditions or problems, and seek emergency medical treatment and/or call 911 if the patient deems either necessary.
--- NOTE | 2023-10-13 13:24 | N.ONRD TS_ITS ---
Radiation Oncology Treatment Summary Patient: Garry>Maura> MR#: [id number] : 1950> Age: 73> Sex: Female Dictated by: Dr. Sparkle Mina Date of Service: 09/10/2023 Referring Physician(s) : Diagnosis: C20 - Malignant neoplasm of rectum, Diagnosed 03/26/2023 (Active) Radiotherapy to Date: Course: Pelvis 2023, Treatment Site: Pelvis 50Gy, Ref. ID: [id number], Energy: 15X, Dose/Fx (cGy): 200, #Fx: 25 / 25, Dose Correction (cGy): 0, Total Dose Delivered (cGy): 5,000, Start Date: 08/05/2023, End Date: 09/11/2023, Elapsed Days: 37 Clinical Summary: The patient tolerated RT well. She had some mild intermittent diarrhea. She did not have any nausea or vomiting. Plan: End of treatment today. Continue on the above medication until the skin reaction resolves. Follow up in one month. Signed by: Dr. Sparkle Mina>10/13/2023 1:22:30 PM <<Signature on File>>
== END 2023-10-10 23:59 | disposition home or self-care (01) ==
PROVIDERS: PCP Family Medicine; Visit Provider Radiology Radiation Oncology
DX: Z51.0 Encounter for antineoplastic radiation therapy (principal); C20 Malignant neoplasm of rectum
CPT/HCPCS: 77336; 77386; 99024

== ENCOUNTER 2023-10-24 16:39 | Emergency (ER) | payer MEDICARE, SELFPAY ==
[2023-10-24] VITALS (7 sets, daily range): BP systolic 136–178; BP diastolic 85–103; PULSE 66–73; RESP 12–18; O2SAT 93–98; BMI 31.8
--- NOTE | 2023-10-24 16:45 | CTR_ITS ---
PROCEDURE INFORMATION: Exam: CT Head Without And With Contrast Exam date and time: 10/24/2023 5:40 PM Age: 73 years old Clinical indication: Altered mental status/memory loss; Confusion or disorientation; Additional info: Head ahce HX breast andrectal CA TECHNIQUE: Imaging protocol: Computed tomography of the head without and with contrast. Radiation optimization: All CT scans at this facility use at least one of these dose optimization techniques: automated exposure control; mA and/or kV adjustment per patient size (includes targeted exams where dose is matched to clinical indication); or iterative reconstruction. Contrast material: OMNI 350; Contrast volume: 80 ml; Contrast route: INTRAVENOUS (IV); COMPARISON: [place] [id number] 06/26/2023 4:15 PM RADIATION DOSE METRICS: Total DLP (mGy-cm): 1994.78 FINDINGS: Brain: No acute infarct. No hemorrhage. Unremarkable white matter for age. No midline shift. No pathologic intracranial enhancement seen by CT. Cerebral ventricles: No ventriculomegaly. Paranasal sinuses: No significant inflammation. No fluid levels. Mastoid air cells: No significant inflammation. Bones: No acute fracture. Soft tissues: Unremarkable. CT/CT head wo/w con [id number] IMPRESSION: No acute intracranial abnormality.
[2023-10-24 17:07] LABS: Basophils % 0.7 %; Eosinophils # 0.2 10^3/uL (0.0-0.8); Eosinophils % 4.3 %; Hematocrit 40.7 % (36-47); Lymphocytes # 0.6 10^3/uL (0.8-4.8); Lymphocytes % 13.1 %; Mean Corpuscular HGB Conc 33.4 g/dL (30-55); Mean Corpuscular Hemoglobin 32.6 pg (27-33); Mean Corpuscular Volume 97.6 fl (85-98); Mean Platelet Volume 9.8 fL (7.4-10.4); Monocytes # 0.4 10^3/uL (0.2-0.9); Monocytes % 8.4 %; Neutrophils # 3.23 10^3/uL (1.8-7.7); Nucleated Red Blood Cells % 0 %; Platelet Count 227 10^3/cmm (157-399); Red Blood Count 4.17 10^6/uL (3.85-5.65); Red Cell Distribution Width 14.9 % (12.1-15.1); White Blood Count 4.42 10^3/uL (3.29-11.43)
--- NOTE | 2023-10-24 17:24 | W.ED.GENADLT ---
Documented by User: Jose Alan DO 10/25/23 06:59 HPI - General Adult General: Chief complaint: General Medical Stated complaint: headache, n Time Seen by Provider: 10/24/23 16:42 Source: patient Mode of arrival: ambulatory History of Present Illness: 73-year-old female presents emergency room complaining of lightheadedness dizziness and headache. Blood pressure has been elevated as well. She has a history of coronary artery disease she has had some shortness of breath but denies any chest pain she also has a history of breast cancer which is rather remote and rather relatively recent rectal CA for which she is being evaluated. No recent medication changes she has not run out of any medications or missed any doses. She has taken all of her medicines today earlier today she had blood pressures approaching 200 systolic in the office when she initially arrived here she had some 170s but the on repeat is actually improved continue to improve. No focal neurologic deficits are reported. Onset (ago): minute(s) Relieving factors: none Exacerbating factors: none Associated symptoms: Deny chest pain, dyspnea or rash Review of Systems Const: Denies: fever(s) or chills Card: Denies: chest pain Resp: Denies: dyspnea GI: Denies: abdominal pain : Denies: dysuria, urinary frequency or urinary urgency Musc: Denies: neck pain or back pain Skin/Breast: Denies: rash PFSH ED PFSH: Medical History History of colon polyps GERD (gastroesophageal reflux disease) Meniere disease Rheumatoid arthritis Lateral cystocele Acute cystitis with hematuria Gross hematuria Recurrent UTI Incomplete bladder emptying Tobacco abuse COPD (chronic obstructive pulmonary disease) Hyperlipidemia HTN (hypertension) Myocardial infarction ASHD (arteriosclerotic heart disease) Surgical History S/P tonsillectomy Status post tubal ligation S/P hysterectomy S/P lumpectomy of breast S/P cholecystectomy S/P PTCA (percutaneous transluminal coronary angioplasty) Social History Smoking and tobacco/nicotine status: never used tobacco/nicotine Quit status (tobacco/nicotine): has quit using Year quit tobacco: 2011 Former quit date comment: tobacco use 40+ years Alcohol intake: unknown Substance/Drug Use: unknown Adopted: No Caregiver/support person: No Lives independently: No Household members: spouse Marital status: Current occupational status: retired Physical Exam Const: COMMON NORMALS: no acute distress GENERAL APPEARANCE: cooperative and comfortable ORIENTATION/CONSCIOUSNESS: Yes awake, Yes oriented to person, Yes oriented to place and Yes oriented to time HENMT: COMMON NORMALS: normocephalic, atraumatic and hearing grossly normal bilaterally HEAD & SCALP: normocephalic and atraumatic Resp: COMMON NORMALS: normal respiratory effort, No retractions, No use of accessory muscles and clear to auscultation bilaterally AUSCULTATION: clear to auscultation bilaterally Cardio: COMMON NORMALS: regular rate, regular rhythm and No murmurs present (Cardio) RATE: regular rate RHYTHM: regular rhythm GI: COMMON NORMALS: Soft to palpation and No hepatosplenomegaly present AUSCULTATION: Yes normoactive bowel sounds PALPATION: Yes Soft to palpation, No Tenderness to palpation present (GI), No Guarding due to palpation present (GI) and Yes No hepatosplenomegaly present Extremity: COMMON NORMALS: normal to inspection, capillary refill normal, no clubbing, cyanosis or edema, no calf tenderness and no pedal edema Neuro: SENSORIUM/ORIENTATION: Yes oriented to person, Yes oriented to place and Yes oriented to time Skin: COMMON NORMALS: no rashes or lesions noted GENERAL SKIN EXAM: no rashes or lesions noted Course Vital Signs: Vital signs: Vital Signs Pulse Rate 73 10/24/23 20:54 Respiratory Rate 18 10/24/23 20:54 Blood Pressure 136/97 10/24/23 20:54 Pulse Oximetry 93 10/24/23 20:54 Oxygen Delivery Me thod Room Air 10/24/23 20:53 MDM - General Adult Medical Decision Making Care signed out to Dr. Chavarria at change of shift. See final notes for diagnosis and disposition. Received in checkout from Dr. Talbert at shift change. This lady's blood pressure was elevated on arrival, but beginning to improve on its own. She had a headache. No specific neurological symptoms. Headache is improving with blood pressure improvement. She is given a small dose of Toradol and morphine and Reglan with resolution of her headache. CT with and without contrast of the head is negative for acute bleed, stroke, tumor, etc. CBC is normal. BMP is not remarkable. No change in her troponin. With improvement of her symptoms her blood pressure, will allow home. Current blood pressure is 136/95. Lab Data 10/24/23 16:56 10/24/23 16:[address] 10/24/23 16:45 IMPRESSION: No acute intracranial abnormality. Laboratory Results WBC 4.42 10^3/uL (3.29-11.43) 10/24/23 16:56 RBC 4.17 10^6/uL (3.85-5.65) 10/24/23 16:56 Hgb 13.60 g/dL (11.27-16.99) 10/24/23 16:56 Hct 40.7 % (36-47) 10/24/23 16:56 MCV 97.6 fl (85-98) 10/24/23 16:56 MCH 32.6 pg (27-33) 10/24/23 16:56 MCHC 33.4 g/dL (30-55) 10/24/23 16:56 RDW 14.9 % (12.1-15.1) 10/24/23 16:56 Plt Count 227 10^3/cmm (157-399) 10/24/23 16:56 MPV 9.8 fL (7.4-10.4) 10/24/23 16:56 Neut % (Auto) 73.0 % 10/24/23 16:56 Lymph % (Auto) 13.1 % 10/24/23 16:56 [place] % (Auto) 8.4 % 10/24/23 16:56 Eos % (Auto) 4.3 % 10/24/23 16:56 Baso % (Auto) 0.7 % 10/24/23 16:56 Neut # (Auto) 3.23 10^3/uL (1.8-7.7) 10/24/23 16:56 Lymph # (Auto) 0.6 10^3/uL (0.8-4.8) L 10/24/23 16:56 [place] # (Auto) 0.4 10^3/uL (0.2-0.9) 10/24/23 16:56 Eos # (Auto) 0.2 10^3/uL (0.0-0.8) 10/24/23 16:56 Baso # (Auto) 0.0 10^3/uL (0.0-0.1) 10/24/23 16:56 Nucleated RBC % (auto) 0 % 10/24/23 16:56 Nucleated RBCs # 0.0 /100WBC 10/24/23 16:56 Sodium 138 mmol/L (136-145) 10/24/23 16:56 Potassium 4.3 mmol/L (3.5-5.1) 10/24/23 16:56 Chloride 100 mmol/L (98-107) 10/24/23 16:56 Carbon Dioxide 24 mmol/L (22-29) 10/24/23 16:56 Anion Gap 18.3 (5-19) 10/24/23 16:56 BUN 17 mg/dL (8-23) 10/24/23 16:56 Creatinine 0.7 mg/dL (0.5-0.9) 10/24/23 16:56 GFR Calculation Not Reportable 10/24/23 16:56 Glucose 117 mg/dL (65-115) H 10/24/23 16:56 Calculated Osmolality 289 mOsm/kg (285-295) 10/24/23 16:56 Calcium 10.3 mg/dL (8.5-10.5) 10/24/23 16:56 Total Bilirubin 0.3 mg/dL (0.15-1.2) 10/24/23 16:56 AST 26 U/L (0-32) 10/24/23 16:56 ALT 39 U/L (0-33) H 10/24/23 16:56 Alkaline Phosphatase 126 U/L (35-105) H 10/24/23 16:56 Troponin T Baseline 7 ng/L (0-10) 10/24/23 16:56 Troponin T 120 Minute 7.59 ng/L (0-10) 10/24/23 19:18 Delta Troponin T 0.59 ABS# (0-10) 10/24/23 19:18 Total Protein 7.5 g/dL (6.6-8.7) 10/24/23 16:56 Albumin 4.8 g/dL (3.5-5.2) 10/24/23 16:56 Globulin 2.7 g/dL (1.3-4.6) 10/24/23 16:56 Discharge Plan Discharge Patient Disposition: Home Clinical Impression: HTN (hypertension), Headache due to hypertension Condition: Stable Prescriptions: No Action albuterol sulfate 90 mcg/actuation HFA aerosol inhaler 2 puff INHALATION Q6H PRN (Reason: Shortness Of Breath) famotidine 40 mg tablet 40 mg PO DAILY atorvastatin 80 mg tablet 80 mg PO DAILY tramadol 50 mg tablet 50 mg PO Q6H PRN (Reason: Pain) lisinopril 20 mg tablet 20 mg PO DAILY aspirin [Aspir-81] 81 mg tablet,delayed release (DR/EC) 81 mg PO DAILY gabapentin [Neurontin] 300 mg capsule 300 mg PO BID omega-3 fatty acids [Fish Oil Concentrate] 1,000 mg capsule 1,000 mg PO DAILY ferrous sulfate 325 mg (65 mg iron) tablet 325 mg PO .WEEKLY PRN (Reason: .low iron) trazodone 50 mg tablet 50 mg PO DAILY prasugrel [Effient] 10 mg tablet 10 mg PO DAILY Hold Instructions: Resume on 03/29/23. meloxicam 7.5 mg tablet 7.5 mg PO DAILY Hold Instructions: Resume on 03/29/23. omeprazole 20 mg capsule,delayed release(DR/EC) 20 mg PO DAILY prochlorperazine maleate 10 mg tablet 10 mg PO Q6H PRN (Reason: nausea and vomiting) Qty: 30 2RF lorazepam 1 mg tablet 0.5 - 1 mg PO Q6H PRN (Reason: Severe Nausea) Qty: 30 3RF (DME) CAM boot See Rx Instructions .Route .MEDSUPPLY Qty: 1 0RF Rx Instructions: As directed metoprolol succinate 25 mg tablet extended release 24 hr 25 mg PO DAILY Qty: 30 1RF nitroglycerin [Nitrostat] 0.4 mg tablet, sublingual 0.4 mg SUBLINGUAL Q5M PRN (Reason: chest pain) Qty: 60 2RF Rx Instructions: do not exceed 3 doses per episode tamsulosin 0.4 mg capsule See Rx Instructions .ROUTE .COMPLEX Qty: 90 3RF Dose Instruction: TAKE 1 CAPSULE DAILY Rx Instructions: TAKE 1 CAPSULE DAILY capecitabine 500 mg tablet See Rx Instructions .ROUTE .COMPLEX Qty: 100 0RF Dose Instruction: TAKE TWO TABLETS BY MOUTH TWICE DAILY; Take with 3-150mg tabs PER DOSE. Take ON radiation DAYS with water 30 minutes AFTER a meal Rx Instructions: TAKE TWO TABLETS BY MOUTH TWICE DAILY; Take with 3-150mg tabs PER DOSE. Take ON radiation DAYS with water 30 minutes AFTER a meal capecitabine 150 mg tablet See Rx Instructions .ROUTE .COMPLEX Qty: 150 0RF Dose Instruction: TAKE THREE TABLETS BY MOUTH TWICE DAILY; Take with 2-500mg tabs FOR each DOSE. Take ON radiation DAYS with water 30 minutes AFTER meal Rx Instructions: TAKE THREE TABLETS BY MOUTH TWICE DAILY; Take with 2-500mg tabs FOR each DOSE. Take ON radiation DAYS with water 30 minutes AFTER meal metformin 500 mg tablet 500 mg PO DAILY potassium chloride 10 mEq capsule, extended release 10 meq PO DAILY Qty: 7 0RF Discharge Orders: Discharge ED (Routine); Ordered 10/24/23 Ordered By: Raudel Chavarria Referrals: Tish Puente DO [Primary Care Provider] - 1-3 days Patient Instructions: Acute Headache (ED), Hypertension (ED), Opioid Safety, Pain Management Activity Restrictions/Additional Instructions: Check your blood pressure twice daily at home. Report numbers to your doctor next week. Return to the ED for significant headache, vision changes, worsening weakness, trouble with your words, balance problems, chest discomfort, other concerning symptoms. Follow-up with your doctor next week. Coding Level of Care Code ED Instructional Technology Teacher for Chg Fwd Documented by User: Raudel Chavarria DO 10/24/23 20:46 HPI - General Adult General: Chief complaint: General Medical Stated complaint: headache, n Time Seen by Provider: 10/24/23 16:42 PFSH ED PFSH: Medical History History of colon polyps GERD (gastroesophageal reflux disease) Meniere disease Rheumatoid arthritis Lateral cystocele Acute cystitis with hematuria Gross hematuria Recurrent UTI Incomplete bladder emptying Tobacco abuse COPD (chronic obstructive pulmonary disease) Hyperlipidemia HTN (hypertension) Myocardial infarction ASHD (arteriosclerotic heart disease) Surgical History S/P tonsillectomy Status post tubal ligation S/P hysterectomy S/P lumpectomy of breast S/P cholecystectomy S/P PTCA (percutaneous transluminal coronary angioplasty) Social History Smoking and tobacco/nicotine status: never used tobacco/nicotine Quit status (tobacco/nicotine): has quit using Year quit tobacco: 2011 Former quit date comment: tobacco use 40+ years Alcohol intake: unknown Substance/Drug Use: unknown Adopted: No Caregiver/support person: No Lives independently: No Household members: spouse Marital status: Current occupational status: retired Course Vital Signs: Vital signs: Vital Signs Pulse Rate 73 10/24/23 20:54 Respiratory Rate 18 10/24/23 20:54 Blood Pressure 136/97 10/24/23 20:54 Pulse Oximetry 93 10/24/23 20:54 Oxygen Delivery Me thod Room Air 10/24/23 20:53 MDM - General Adult Medical Decision Making Received in checkout from Dr. Talbert at shift change. This lady's blood pressure was elevated on arrival, but beginning to improve on its own. She had a headache. No specific neurological symptoms. Headache is improving with blood pressure improvement. She is given a small dose of Toradol and morphine and Reglan with resolution of her headache. CT with and without contrast of the head is negative for acute bleed, stroke, tumor, etc. CBC is normal. BMP is not remarkable. No change in her troponin. With improvement of her symptoms her blood pressure, will allow home. Current blood pressure is 136/95. Lab Data 10/24/23 16:56 10/24/23 16:[address] 10/24/23 16:45 IMPRESSION: No acute intracranial abnormality. Laboratory Results WBC 4.42 10^3/uL (3.29-11.43) 10/24/23 16:56 RBC 4.17 10^6/uL (3.85-5.65) 10/24/23 16:56 Hgb 13.60 g/dL (11.27-16.99) 10/24/23 16:56 Hct 40.7 % (36-47) 10/24/23 16:56 MCV 97.6 fl (85-98) 10/24/23 16:56 MCH 32.6 pg (27-33) 10/24/23 16:56 MCHC 33.4 g/dL (30-55) 10/24/23 16:56 RDW 14.9 % (12.1-15.1) 10/24/23 16:56 Plt Count 227 10^3/cmm (157-399) 10/24/23 16:56 MPV 9.8 fL (7.4-10.4) 10/24/23 16:56 Neut % (Auto) 73.0 % 10/24/23 16:56 Lymph % (Auto) 13.1 % 10/24/23 16:56 [place] % (Auto) 8.4 % 10/24/23 16:56 Eos % (Auto) 4.3 % 10/24/23 16:56 Baso % (Auto) 0.7 % 10/24/23 16:56 Neut # (Auto) 3.23 10^3/uL (1.8-7.7) 10/24/23 16:56 Lymph # (Auto) 0.6 10^3/uL (0.8-4.8) L 10/24/23 16:56 [place] # (Auto) 0.4 10^3/uL (0.2-0.9) 10/24/23 16:56 Eos # (Auto) 0.2 10^3/uL (0.0-0.8) 10/24/23 16:56 Baso # (Auto) 0.0 10^3/uL (0.0-0.1) 10/24/23 16:56 Nucleated RBC % (auto) 0 % 10/24/23 16:56 Nucleated RBCs # 0.0 /100WBC 10/24/23 16:56 Sodium 138 mmol/L (136-145) 10/24/23 16:56 Potassium 4.3 mmol/L (3.5-5.1) 10/24/23 16:56 Chloride 100 mmol/L (98-107) 10/24/23 16:56 Carbon Dioxide 24 mmol/L (22-29) 10/24/23 16:56 Anion Gap 18.3 (5-19) 10/24/23 16:56 BUN 17 mg/dL (8-23) 10/24/23 16:56 Creatinine 0.7 mg/dL (0.5-0.9) 10/24/23 16:56 GFR Calculation Not Reportable 10/24/23 16:56 Glucose 117 mg/dL (65-115) H 10/24/23 16:56 Calculated Osmolality 289 mOsm/kg (285-295) 10/24/23 16:56 Calcium 10.3 mg/dL (8.5-10.5) 10/24/23 16:56 Total Bilirubin 0.3 mg/dL (0.15-1.2) 10/24/23 16:56 AST 26 U/L (0-32) 10/24/23 16:56 ALT 39 U/L (0-33) H 10/24/23 16:56 Alkaline Phosphatase 126 U/L (35-105) H 10/24/23 16:56 Troponin T Baseline 7 ng/L (0-10) 10/24/23 16:56 Troponin T 120 Minute 7.59 ng/L (0-10) 10/24/23 19:18 Delta Troponin T 0.59 ABS# (0-10) 10/24/23 19:18 Total Protein 7.5 g/dL (6.6-8.7) 10/24/23 16:56 Albumin 4.8 g/dL (3.5-5.2) 10/24/23 16:56 Globulin 2.7 g/dL (1.3-4.6) 10/24/23 16:56 All radiology interpretation(s) finalized by discharge Discharge Plan Discharge Patient Disposition: Home Clinical Impression: HTN (hypertension), Headache due to hypertension Condition: Stable Prescriptions: No Action albuterol sulfate 90 mcg/actuation HFA aerosol inhaler 2 puff INHALATION Q6H PRN (Reason: Shortness Of Breath) famotidine 40 mg tablet 40 mg PO DAILY atorvastatin 80 mg tablet 80 mg PO DAILY tramadol 50 mg tablet 50 mg PO Q6H PRN (Reason: Pain) lisinopril 20 mg tablet 20 mg PO DAILY aspirin [Aspir-81] 81 mg tablet,delayed release (DR/EC) 81 mg PO DAILY gabapentin [Neurontin] 300 mg capsule 300 mg PO BID omega-3 fatty acids [Fish Oil Concentrate] 1,000 mg capsule 1,000 mg PO DAILY ferrous sulfate 325 mg (65 mg iron) tablet 325 mg PO .WEEKLY PRN (Reason: .low iron) trazodone 50 mg tablet 50 mg PO DAILY prasugrel [Effient] 10 mg tablet 10 mg PO DAILY Hold Instructions: Resume on 03/29/23. meloxicam 7.5 mg tablet 7.5 mg PO DAILY Hold Instructions: Resume on 03/29/23. omeprazole 20 mg capsule,delayed release(DR/EC) 20 mg PO DAILY prochlorperazine maleate 10 mg tablet 10 mg PO Q6H PRN (Reason: nausea and vomiting) Qty: 30 2RF lorazepam 1 mg tablet 0.5 - 1 mg PO Q6H PRN (Reason: Severe Nausea) Qty: 30 3RF (DME) CAM boot See Rx Instructions .Route .MEDSUPPLY Qty: 1 0RF Rx Instructions: As directed metoprolol succinate 25 mg tablet extended release 24 hr 25 mg PO DAILY Qty: 30 1RF nitroglycerin [Nitrostat] 0.4 mg tablet, sublingual 0.4 mg SUBLINGUAL Q5M PRN (Reason: chest pain) Qty: 60 2RF Rx Instructions: do not exceed 3 doses per episode tamsulosin 0.4 mg capsule See Rx Instructions .ROUTE .COMPLEX Qty: 90 3RF Dose Instruction: TAKE 1 CAPSULE DAILY Rx Instructions: TAKE 1 CAPSULE DAILY capecitabine 500 mg tablet See Rx Instructions .ROUTE .COMPLEX Qty: 100 0RF Dose Instruction: TAKE TWO TABLETS BY MOUTH TWICE DAILY; Take with 3-150mg tabs PER DOSE. Take ON radiation DAYS with water 30 minutes AFTER a meal Rx Instructions: TAKE TWO TABLETS BY MOUTH TWICE DAILY; Take with 3-150mg tabs PER DOSE. Take ON radiation DAYS with water 30 minutes AFTER a meal capecitabine 150 mg tablet See Rx Instructions .ROUTE .COMPLEX Qty: 150 0RF Dose Instruction: TAKE THREE TABLETS BY MOUTH TWICE DAILY; Take with 2-500mg tabs FOR each DOSE. Take ON radiation DAYS with water 30 minutes AFTER meal Rx Instructions: TAKE THREE TABLETS BY MOUTH TWICE DAILY; Take with 2-500mg tabs FOR each DOSE. Take ON radiation DAYS with water 30 minutes AFTER meal metformin 500 mg tablet 500 mg PO DAILY potassium chloride 10 mEq capsule, extended release 10 meq PO DAILY Qty: 7 0RF Discharge Orders: Discharge ED (Routine); Ordered 10/24/23 Ordered By: Raudel Chavarria Referrals: Tish Puente DO [Primary Care Provider] - 1-3 days Patient Instructions: Acute Headache (ED), Hypertension (ED), Opioid Safety, Pain Management Activity Restrictions/Additional Instructions: Check your blood pressure twice daily at home. Report numbers to your doctor next week. Return to the ED for significant headache, vision changes, worsening weakness, trouble with your words, balance problems, chest discomfort, other concerning symptoms. Follow-up with your doctor next week. Coding Level of Care Code ED Instructional Technology Teacher for Ronnie Gudino
[2023-10-24 17:28] LABS: Alanine Aminotransferase 39 U/L (0-33); Albumin Level 4.8 g/dL (3.5-5.2); Alkaline Phosphatase 126 U/L (35-105); Aspartate Amino Transferase 26 U/L (0-32); Blood Urea Nitrogen 17 mg/dL (8-23); Calcium 10.3 mg/dL (8.5-10.5); Carbon Dioxide 24 mmol/L (22-29); Chloride 100 mmol/L (98-107); Creatinine Clr Calc Pharmacy 56.2326; Globulin 2.7 g/dL (1.3-4.6); Glucose 117 mg/dL (65-115); Osmolality Calculated 289 mOsm/kg (285-295); Sodium 138 mmol/L (136-145); Total Bilirubin 0.3 mg/dL (0.15-1.2); Total Protein 7.5 g/dL (6.6-8.7)
[2023-10-24 17:31] LABS: Anion Gap 18.3 (5-19); Potassium 4.3 mmol/L (3.5-5.1)
[2023-10-24] MEDS: iohexol 350 mg/mL 500 mL Btl (per mL) IV (17:42)
--- NOTE | 2023-10-24 18:27 | ECG_ITS ---
[facility] Test Date: 2023-10-24 Pat Name: Maura Castañeda Department: Room: Gender: Female Ear Machine Operator: : 1950 Requested By: Jose Hill Order Number: [id number] Marc MD: Vivi Gilbert M.D. Measurements Intervals Hines Rate: 64 P: 60 RI: 142 QRS: 47 QRSD: 78 T: 70 QT: 414 QTc: 430 Interpretive Statements SINUS RHYTHM POSSIBLE LEFT ATRIAL ENLARGEMENT [-0.1mV P-WAVE IN V1/V2] LOW QRS VOLTAGE IN PRECORDIAL LEADS [QRS DEFLECTION < 1.0 mV IN CHEST LEADS] MINIMAL ST DEPRESSION [0.025+ mV ST DEPRESSION] Compared to ECG 05/30/2023 16:41:15 Low QRS voltage now present ST (T wave) deviation now present Indeterminate axis no longer present Myocardial infarct finding no longer present Electronically Signed On 10-24-2023 19:14:26 CDT by Vivi Gilbert M.D. [id number]
--- NOTE | 2023-10-24 18:40 | PC.NURSE ---
Assumed care from Alondra ESPARZA.
[2023-10-24 18:50] LABS: Troponin(5th) Baseline 7 ng/L (0-10)
[2023-10-24] MEDS: morphine 4 mg/mL SDV 1 mL 2 MG IVP (19:09)
[2023-10-24] MEDS: ketorolac 30 mg/mL INJ 15 MG IVP (19:10)
[2023-10-24] MEDS: metoclopramide 5 mg/mL SDV 2 mL 10 MG IVP (19:10)
[2023-10-24 19:47] LABS: Troponin 5 2HR 7.59 ng/L (0-10); Troponin 5 2HR Delta 0.59 ABS# (0-10)
== END 2023-10-24 20:48 | disposition home or self-care (01) ==
PROVIDERS: Family Medicine; Emergency Provider Emergency Medicine; PCP Family Medicine
DX: I10 Essential (primary) hypertension (principal); G44.89 Other headache syndrome; Z79.82 Long term (current) use of aspirin; Z79.84 Long term (current) use of oral hypoglycemic drugs; Z87.891 Personal history of nicotine dependence; J44.9 Chronic obstructive pulmonary disease, unspecified; E78.5 Hyperlipidemia, unspecified; I25.2 Old myocardial infarction
CPT/HCPCS: 36415; 70470; 80053; 84484; 85025; 93005; 96374; 96375; 99285; J1885; J2270; J2765; Q9967

== ENCOUNTER → 2023-11-06 13:25 | Outpatient (BNVA) | payer MEDICARE, SELFPAY | PROVIDERS: PCP Family Medicine; Visit Provider Internal Medicine Cardiovascular Disease | DX: I25.10 Atherosclerotic heart disease of native coronary artery without angina pectoris (principal); Z98.61 Coronary angioplasty status; I10 Essential (primary) hypertension; E78.5 Hyperlipidemia, unspecified; Z72.0 Tobacco use; C20 Malignant neoplasm of rectum; J44.9 Chronic obstructive pulmonary disease, unspecified; I25.2 Old myocardial infarction | CPT/HCPCS: 99213 ==

== ENCOUNTER 2023-11-12 13:28 | Outpatient (CLI) | payer MEDICARE, SELFPAY ==
--- NOTE | 2023-11-12 13:34 | MM_ITS ---
WS: [id number] BILATERAL 3D TOMOSYNTHESIS DIGITAL DIAGNOSTIC MAMMOGRAPHY WITH CAD CLINICAL INFORMATION: PERSONAL HX BREAST CANCER HISTORY: COMPARISON: 2022 TECHNIQUE: Bilateral CC, MLO, and ML views. FINDINGS: Scattered fibroglandular densities bilaterally. Stable postoperative changes RIGHT breast lumpectomy with dystrophic calcifications. This is unchanged in appearance compared to previous. No new suspicio us abnormalities. Stable treatment-related changes RIGHT breast. The LEFT breast is unchanged in appearance. No suspicious focal mass, asymmetry, calcifications, or architectural distortion. No evidence of codi gnancy. MM/[place] [id number] IMPRESSION: BI-RADS: 2-Benign FOLLOW UP: 1 Year Follow-up Recommend return to annual diagnostic mammography.
== END 2023-11-12 13:29 | disposition home or self-care (01) ==
LOC: RAD 13:28
PROVIDERS: PCP Family Medicine; Visit Provider Family Medicine
DX: Z85.3 Personal history of malignant neoplasm of breast (principal); R92.323 Mammographic fibroglandular density, bilateral breasts; Z98.890 Other specified postprocedural states; R92.1 Mammographic calcification found on diagnostic imaging of breast
CPT/HCPCS: 77062; G0279

== ENCOUNTER 2023-12-16 08:37 | Outpatient (CLI) | payer MEDICARE, SELFPAY ==
--- NOTE | 2023-12-16 | ECG_ITS ---
[facility] Test Date: 2023-12-16 Pat Name: Maura Castañeda Department: Room: Gender: Female Donor Services Manager: : 1950 Requested By: Moody Nix Order Number: [id number] Tran MD: Woody Toney M.D. Interpretive Statements NAME OF STUDY: LEXISCAN SESTAMIBI STRESS TEST INDICATION: [Chest Pain] Procedure: At the baseline, the blood pressure was 120/71 mmHg with a heart rate of 70 bpm. The electrocardiogram showed normal sinus rhythm, normal axis with normal ST and T's. The Lexiscan was infused over a period of 20 seconds. A total of 0.4 mg of Lexiscan was infused. The stress phase was continued for a total of 5 minutes. Heart rate was at the end of stress phase was 77 bpm and a blood pressure of 104/78 mmHg. The EKG at the peak infusion revealed normal sinus rhythm with no significant ST-T wave changes. Sestamibi was injected 20 seconds after the Lexiscan infusion. Blood pressure at the end of recovery phase was 93/65 mmHg with a heart rate of 78 bpm. Conclusion: 1. Normal EKG response to Lexiscan infusion 2. No Lexiscan induced chest pain or cardiac arrhythmia. 3. Normal blood pressure and heart rate response. 4. Sestamibi/sestamibi perfusion scan pending; see separate report. Electronically Signed On 12-21-2023 21:13:43 CDT by Woody Toney M.D. [id number]
[2023-12-16 09:13] VITALS: BMI 32.2
--- NOTE | 2023-12-16 09:14 | NMCV_ITS ---
NM arleen perf SPECT r/s* [id number] Maura Castañeda Age: 73 Gender: F : 1950 Exam Date: 12/16/2023 09:55 Ordering Phys: Moody Nix MD ([email or web address]) Technologist: MICHAEL Montez Exam Location: [facility] Indications: CP STRESS TEST Please see separate stress test report in [facility] for full findings IMAGE PROTOCOL Rest/Stress 1 Lexiscan Day Radiopharmaceutical Dose (mCi) Administration Site Administered by Rest: Tc-99m 10.9 IV MICHAEL Montez Sestamibi Stress:Tc-99m 32.5 IV MICHAEL Montez Sestamiaudrey Rest: 16-Dec-2023 60 Discovery 630 Stress: 16-Dec-2023 60 Discovery 630 0.4mg Lexiscan. Images obtained in supine and prone position. SPECT RESULTS Technical Quality: Good Raw Data Analysis: Normal Image Corrections: No attenuation or motion correction applied Summed Stress Score: 0 Summed Rest Score: 0 Summed Difference Score: 0 PERFUSION FINDINGS SPECT images demonstrate homogeneous tracer distribution throughout the myocardium. FUNCTIONAL RESULTS (calculated via Gated SPECT) Stress Image LV EF (%): 95 Stress EDV (mL):40 TID: 0.74 Stress ESV (mL):2 FUNCTIONAL FINDINGS: There is normal left ventricular systolic function. IMPRESSIONS 1. Normal myocardial perfusion imaging with no evidence of ischemia 2. LV systolic function is normal Woody Toney MD (Electronically Signed) Final Date: 16 December 2023 17:54 S
[2023-12-16] MEDS: regadenoson 0.4 Mg/5 ml Syringe IVP (10:45)
[2023-12-16 11:21] VITALS: BP 93/65; PULSE 62
== END 2023-12-16 08:38 | disposition home or self-care (01) ==
PROVIDERS: PCP Family Medicine; Visit Provider Internal Medicine Cardiovascular Disease
DX: R07.9 Chest pain, unspecified (principal)
CPT/HCPCS: 36415; 78452; 93017; 96374; A9500; J2785

== ENCOUNTER 2024-01-05 14:44 | Oncology outpatient (recurring) (ONCR) | payer MEDICARE, MEDICAID, SELFPAY | END 2024-01-10 23:59 | disposition home or self-care (01) | PROVIDERS: PCP Family Medicine; Visit Provider Radiology Radiation Oncology | DX: C20 Malignant neoplasm of rectum (principal); Z79.631 Long term (current) use of antimetabolite agent; Z87.891 Personal history of nicotine dependence; Z92.3 Personal history of irradiation | CPT/HCPCS: 99215 ==

== ENCOUNTER → 2024-01-09 10:16 | Outpatient (BNVA) | payer MEDICARE, MEDICAID, SELFPAY | PROVIDERS: PCP Family Medicine; Visit Provider Surgery | DX: C20 Malignant neoplasm of rectum (principal) | CPT/HCPCS: 99214 ==

== ENCOUNTER 2024-01-16 12:24 | Outpatient (CLI) | payer MEDICARE, SELFPAY ==
[2024-01-16 13:18] LABS: Blood Urea Nitrogen 14 mg/dL (8-23)
[2024-01-16] MEDS: iohexol 350 mg/mL 500 mL Btl (per mL) PO (13:21)
[2024-01-16] MEDS: iohexol 350 mg/mL 500 mL Btl (per mL) IV (13:21)
--- NOTE | 2024-01-16 13:30 | CT_ITS ---
WS: [id number] CT CHEST, ABDOMEN AND PELVIS WITH CONTRAST HISTORY: rectal cancer TECHNIQUE: Contiguous 5 mm axial imaging performed through the chest, abdomen and pelvis with IV cont rast, oral contrast has been provided. Coronal and sagittal reformats chest. Coronal and sagittal ref ormats through the abdomen and pelvis. All CT scans at [facility] use at least one of these d ose optimization techniques: automated exposure control; mA and/or kV adjustment per patient size (in cludes targeted exams where dose is matched to clinical indication); or iterative reconstruction. CONTRAST: Omnipaque 350; 100 mL IV. DLP: 917.88 mGy.cm COMPARISON: 07/31/2023, 05/30/[address]: Pulmonary hyperexpansion with stable bilateral pulmonary nodules. Nodules are less than 3 m m. No mass or pneumonia. No pericardial or pleural effusions. Moderate atherosclerosis aorta. Mild di latation of the ascending aorta at 3.8 cm is unchanged. Normal size pulmonary artery. No mediastinal or hilar adenopathy. Prior RIGHT lumpectomy. Small hiatal hernia. Abdomen CT: Normal size liver. RIGHT posterior subcapsular calcification is stable. No metastatic dis ease within the liver. Normal portal vein. Prior cholecystectomy. Normal spleen and pancreas. No adre nal mass. Multiple bilateral renal cysts. Very large renal cyst RIGHT kidney measures 7.9 x 6.5 cm. Atherosclerosis aorta. Mild stenosis proximal celiac axis. No ascites. No adenopathy. No GI tract obstruction. Normal appendix. Mild diverticular burden without acute diverticulitis. Pelvic CT: No free fluid. Previously described mild asymmetric rectal wall thickening has essentially resolved. No perirectal adenopathy. Previously described 5 mm RIGHT mesorectal fat lymph node is not identified on today's exam. CT/CT chest abdpel w/*[id number] IMPRESSION: 1. No metastatic adenopathy in the chest, abdomen or pelvis. 2. Previously described eccentric LEFT rectal wall thickening has resolved. No residual asymmetric rectal thickening. Previously described lymph node has als o resolved. 3. No metastatic disease in the liver or adrenal glands. 4. Numerous bilateral renal cysts. 5. Prior hysterectomy and cholecystectomy.
== END 2024-01-16 12:25 | disposition home or self-care (01) ==
LOC: RAD 12:28
PROVIDERS: PCP Family Medicine; Visit Provider Internal Medicine Medical Oncology
DX: C20 Malignant neoplasm of rectum (principal); Q61.02 Congenital multiple renal cysts; Z90.710 Acquired absence of both cervix and uterus; Z90.49 Acquired absence of other specified parts of digestive tract
CPT/HCPCS: 71260; 74177; 82565; 84520

== ENCOUNTER 2024-01-19 08:56 | Observation (INO) | payer MEDICARE, SELFPAY ==
[2024-01-19] VITALS (14 sets, daily range): BP systolic 89–160; BP diastolic 49–94; PULSE 65–100; RESP 14–20; TEMP 36.1–37; O2SAT 96–100; BMI 24.7
[2024-01-19] MEDS: sodium chloride 0.9% 1,000 ML 30 ML IV (06:06)
[2024-01-19 06:26] LABS: Glucose Point of Care 160 mg/dL (70-110)
--- NOTE | 2024-01-19 06:30 | W.PM.OPSUD ---
Surgery/Procedure H&P Update DATE OF PROCEDURE: January 19, 2024 DATE H&P PERFORMED: 01/09/24 H&P UPDATE INFORMATION: I have reviewed H&P completed within last 30 days, I have examined patient prior to procedure and No changes to prior documentation PLANNED PROCEDURE: Operation Date: 01/19/24 07:00 Proposed Procedures p Portacath Placement(Not Applicable) - Davon Lee DO
--- NOTE | 2024-01-19 06:48 | SC_ITS ---
WS: [id number] C-arm FL for CVA [id number] REASON FOR EXAM: intra-op FINDINGS: Chemotherapy infusion port placement left upper lateral chest with trans left subclavian vein infusio n catheter. The tip appears to be in the SVC above the left innominate SVC junction. No pneumothorax identified. SC/C-arm FL for CVA [id number] IMPRESSION: Left infusion port and catheter placement, proper position. No pneumothorax.
--- NOTE | 2024-01-19 06:55 | ANES.PREANE2 ---
Pre-Anesthetic Assessment Height/Weight: Height 1.73 m Weight 73.936 kg Temp Pulse Resp BP Pulse Ox O2 Del Method 97.0 F L 98 18 144/94 97 Room Air 01/19/24 06:07 01/19/24 06:07 01/19/24 06:07 01/19/24 06:07 01/19/24 06:07 01/19/24 06:07 Operation Date: 01/19/24 07:00 Proposed Procedures p Portacath Placement(Not Applicable) - Davon Lee DO Familial anesthetic complications: States had to stay overnight after colonoscopy due to excessive sleepiness, but this hasn't repeated. States this occured here in 2018. Review of notes back to 2012 shows no overnight stay. Multiple other encounters without incident Was Beta Yumiko taken within 24 hours: Yes Was Clonidine taken within 24 hours: N/A Last intake: Intake Last Liquid Date 01/18/24 Last Liquid Time 16:00 Last Solid Date 01/18/24 Last Solid Time 16:00 Social No alcohol and No tobacco Exam alert, oriented x 3, clear to auscultation bilaterally and regular rate & rhythm Airway Mallampati: Class I Dentition: false Pulmonary Chronic Obstructive Pulmonary Disease CV/HEM Stable Angina, Hypertension and Myocardial Infarction (PTCA) GI Gastroesophageal Reflux Disease Metabolic Hyperlipidemia Anesthetic Plan ASA status: 4 Anesthesia: MAC Risk of > 500 ml blood loss (7ml/kg in children): No Medications/Allergies Home Medications Medication Instructions Recorded Confirmed Last Taken Type albuterol sulfate 90 mcg/actuation 2 puff inhalation Q6H PRN 09/28/19 01/16/24 01/18/24 History aerosol inhaler Shortness Of Breath aspirin 81 mg tablet,delayed 81 mg PO DAILY 09/28/19 01/16/24 01/12/24 History release (Aspir-) atorvastatin 80 mg tablet 80 mg PO DAILY 09/28/19 01/16/24 01/18/24 History famotidine 40 mg tablet 40 mg PO DAILY 09/28/19 01/16/24 01/18/24 History gabapentin 300 mg capsule 300 mg PO BID 09/28/19 01/16/24 01/18/24 History (Neurontin) lisinopril 20 mg tablet (Zestril) 20 mg PO DAILY 09/28/19 01/16/24 01/18/24 History omega-3 fatty acids 1,000 mg 1,000 mg PO DAILY 09/28/19 01/16/24 01/18/24 History capsule (Fish Oil Concentrate) tramadol 50 mg tablet 50 mg PO Q6H PRN Pain 09/28/19 01/16/24 01/18/24 History ferrous sulfate 325 mg (65 mg 325 mg PO .WEEKLY PRN .low iron 07/30/21 01/16/24 01/18/24 History iron) tablet omeprazole 20 mg capsule,delayed 20 mg PO DAILY 07/30/21 01/16/24 01/18/24 History release prasugrel 10 mg tablet (Effient) 10 mg PO DAILY 07/30/21 01/16/24 01/18/24 History CAM boot #1 ea 07/30/22 01/09/24 03/25/23 Rx metformin 500 mg tablet 500 mg PO DAILY 03/26/23 01/16/24 01/18/24 History potassium chloride 10 mEq 10 meq PO DAILY #7 caps 05/30/23 01/16/24 01/18/24 Rx capsule,extended release metoprolol succinate 25 mg 25 mg PO DAILY #30 tabs 08/13/23 01/16/24 01/19/24 Rx tablet,extended release 24 hr nitroglycerin 0.4 mg sublingual 0.4 mg sublingual Q5M PRN chest 11/06/23 01/19/24 Unknown Rx tablet (Nitrostat) pain #60 tabs hydrochlorothiazide 12.5 mg tablet 12.5 mg PO DAILY 01/14/24 01/16/24 01/18/24 History lorazepam 1 mg tablet (Ativan) 0.5 - 1 mg PO Q6H PRN Severe Nausea 01/14/24 01/19/24 Unknown History tamsulosin 0.4 mg capsule 0.4 mg PO DAILY 01/14/24 01/16/24 01/18/24 History prochlorperazine maleate 10 mg 10 mg PO Q6H PRN nausea and 01/16/24 01/19/24 01/18/24 History tablet (Compazine) vomiting Allergies Allergy/AdvReac Type Severity Reaction Status Date / Time No Known Allergies Allergy Verified 01/16/24 09:15 Current Medications Generic Name Dose Route Start Last Admin Trade Name Freq PRN Reason Stop Dose Admin Sodium Chloride 1,000 mls @ 30 mls/hr 01/19/24 06:00 01/19/24 06:06 Sodium Chloride 0.9% IV 01/20/24 05:59 30 mls/hr .Q24H NIKKO Administration PFSH Anesthesia Medical History History of colon polyps GERD (gastroesophageal reflux disease) Meniere disease Rheumatoid arthritis Lateral cystocele Acute cystitis with hematuria Gross hematuria Recurrent UTI Incomplete bladder emptying Tobacco abuse COPD (chronic obstructive pulmonary disease) Hyperlipidemia HTN (hypertension) Myocardial infarction ASHD (arteriosclerotic heart disease) Surgical History S/P tonsillectomy Status post tubal ligation S/P hysterectomy S/P lumpectomy of breast S/P cholecystectomy S/P PTCA (percutaneous transluminal coronary angioplasty) Social History Smoking and tobacco/nicotine status: former use of tobacco/nicotine Quit status (tobacco/nicotine): has quit using Year quit tobacco: 2011 Former quit date comment: tobacco use 40+ years Alcohol intake: unknown Substance/Drug Use: unknown Adopted: No Caregiver/support person: No Lives independently: No Household members: spouse Marital status: Current occupational status: retired Data Anesthesia Cardiac Studies: Sestamibi Stress Test (Cardiology) 12/16/23
[2024-01-19] MEDS: ceFAZolin 2,000 mg SDV 2000 MG IVP (07:04)
[2024-01-19] MEDS: lidocaine-epi 2% PF 1:200,000 20 mL SDV XX (07:25)
[2024-01-19] MEDS: heparin, porcine 1,000 unit/mL INJ 10 mL 10000 UNIT IRRIGATION (07:26)
--- NOTE | 2024-01-19 07:40 | PM.OP ---
Operative Report Date of procedure: January 19, 2024 Surgeon: Davon Lee DO Brief History: This is a very pleasant 73-year-old female who was diagnosed with rectal cancer. Oncology requested Mediport placement for chemotherapy access. The risks and benefits were explained and documented. Procedure: Pre-op diagnosis: Rectal cancer Post-op diagnosis: same Procedure done: Mediport placement Intraoperative interpretation of fluoroscopy Implants: PowerPort Specimens removed/disposition: None Surgeon: Davon Lee DO Anesthesia: MAC and Local Estimated blood loss (mL): 5 Complications: None apparent Procedure: The patient was taken to the operating room and placed supine on the operating room table. All bony prominences were padded. She was given IV sedation and monitored throughout the case by the anesthesia personnel. SCDs were placed and turned on. The arms were tucked to the side. Patient received Ancef 2 g preoperatively IV. The bilateral chest wall was prepped and draped in usual sterile fashion using chlorhexidine base prep. Sterile drapes were applied. We did procedure pause prior to beginning. An 18 gauge needle was placed in the left subclavian vein. Dark, nonpulsatile blood was aspirated. A guidewire was placed through the needle centrally toward the atrial/vena caval junction. Fluoroscopy visualized good placement. The needle was removed and the guidewire was clipped to the drape with a hemostat. Further local anesthetic was infiltrated in the soft tissues of the left chest wall and a #15 blade was used to make a horizontal skin incision. A subcutaneous Mediport pocket was created using Bovie cautery, dissecting down through the skin and subcutaneous tissues. Meticulous hemostasis was achieved. The Mediport was sutured in position using 3-0 vicryl suture x2 stitches. A #15 blade was used to make a small skin felipe around the guidewire insertion area. The Mediport tubing was tunneled through the subcutaneous tissues up to the needle insertion location. A dilator with a peel-away sheath was placed over the guidewire and placed centrally. After measuring the Mediport tubing was cut to length so that the tip would end at the atrial/vena caval junction. The inner cannula and the guidewire were removed, leaving the dilator sheath in place. The Mediport was flushed. The tip of the catheter was inserted through the peel-away sheath and the peel-away sheath removed in the standard fashion. The Mediport was accessed with a straight Cash needle and dark, nonpulsatile blood was aspirated and flushed using heparinized saline to hep-lock the Mediport. Final fluoroscopy visualization showed no kink in the catheter and the tip of the Mediport tubing near the atrial/vena caval junction. There is no obvious pneumothorax. Both skin incisions were thoroughly irrigated and suctioned dry. Meticulous hemostasis noted. The dermis was approximated with 3-0 Vicryl in an interrupted fashion. Skin was closed with Dermabond. Patient was awakened from anesthesia and transferred via her cart to the recovery room in stable condition. All needle, sponge, and instrument counts were correct per the operating personnel x2 counts.
--- NOTE | 2024-01-19 07:52 | XR_ITS ---
WS: [id number] PORTABLE CHEST HISTORY: POST OP COMPARISON: 06/26/2023 LEFT Mediport has been placed since the prior study. Tip terminates in the mid SVC. Lungs are clear and well expanded. No pleural effusion or pneumothorax. Cardiac size: Normal. Mediastinum/Aorta: Atherosclerosis. No osseous abnormality seen. XR/XR chest 1V portable [id number] IMPRESSION: Satisfactory position LEFT subclavian Mediport.
--- NOTE | 2024-01-19 09:00 | ANE.PACU2 ---
Inpatient post-anesthesia follow up: Airway intact: Yes Vital signs: Temperature 97.0 F Pulse Rate 79 Respiratory Rate 16 Blood Pressure 92/53 Pulse Oximetry 99 Oxygen Delivery Me thod Room Air Oxygen Flow Rate 6 Fraction of Inspir ed Oxygen Hydration adequate: Yes Nausea and vomiting: No Pain level: 1 Mental status: Baseline
[2024-01-19] MEDS: HYDROcodone-acetaminophen 5-325 mg Tablet 1 TAB PO ×2 (12:31→21:08)
[2024-01-20] VITALS (8 sets, daily range): BP systolic 154–187; BP diastolic 79–96; PULSE 67–81; RESP 16–20; TEMP 36.4–36.6; O2SAT 97
[2024-01-20] MEDS: HYDROcodone-acetaminophen 5-325 mg Tablet 1 TAB PO (08:17)
[2024-01-20] MEDS: ondansetron 4 MG Tablet PO (09:46)
[2024-01-20] MEDS: ondansetron 4 MG Tablet 8 MG PO (10:15)
--- NOTE | 2024-01-20 10:17 | PC.NURSE ---
[address] SHABAZZ AND TOLD HIM ABOUT PATIENT GETTING CHOKE ON WATER THIS AM AT BREAKFAST, WATER JUST WENT DOWN WRONG SIDE AND TOLD HIM THAT SHE JUST THREW UP AND ASKED IF HE WANTED TO COME SEE HER AND HE ORDERED ZOFRAN 8MG AND THEN SHE COULD GO HOME AND THAT HE DID NOT NEED TO SEE HER. THIS RESIDENTIAL NURSE HAD JUST GIVEN HER PO ZOFRAN 4MG AND THEN WENT I GOT OFF PHONE WITH HIM AND WENT BACK TO CHECK ON HER SHE HAD THROWN UP AGAIN. THIS RESIDENTIAL NURSE OFFERED TO RESTART IV CAUSE THIS RESIDENTIAL NURSE TOOK IT OUT EARLIER BEFORE SHE HAD THROWN UP BECAUSE SHE WAS GOING HOME. PATIENT REFUSED IV AND IV MEDS SO THIS WROTER GAVE HER ZOFRAN 8 MG PO AND JUST ENCOURAGED HER TO REST FOR AWHILE. TOLD HER THAT I WAS NOT COMFORTABLE SENDING HER HOME UNTIL SHE STOPPED THROWING UP.
--- NOTE | 2024-01-20 10:43 | PC.NURSE ---
THIS C D REACTOR OPERATOR CHARTED ON WRONG PATIENT.
--- NOTE | 2024-01-20 12:53 | PM.DCS ---
Discharge Providers Date of Admission: 01/19/24 08:56 Date of Discharge: January 26, 2024 Attending Provider at Admission: Davon Lee DO Attending Provider at Discharge: Davon Lee DO Primary Care Provider: Tish Puente DO Reason for Visit Reason for Visit: Brief History: This is a very pleasant 73-year-old female who presented to the hospital yesterday for Mediport placement. She lives alone and did not have anyone to take care of her. Therefore she was placed as an outpatient in the bed. She did well overnight. She did have some nausea and emesis this morning but was otherwise vitally stable and having minimal controlled pain. She was discharged home in good condition. Physical Exam Narrative: General : Patient is well developed , no acute distress, oriented x3 Head : Normal cephalic, a-traumatic. Ears : Pinnae and external canal are normal. Hearing is normal. Eyes : PERRLA, Sclera and injection are normal. No conjunctival discharge. Nose : Mucous membranes are without erythema. Throat : buccal mucosa is normal, gums are without significant recession or hypertrophy. Lungs : Equal chest rise bilaterally, no use of accessory muscles, trachea is midline. Cor : Rate and rhythm are normal. Abdomen : Soft, ND, NT, no g/r/m Extremities : No edema, no cyanosis or clubbing, dorsalis pedis pulses are present bilaterally, non-tender to palpation of calves. Upper extremities are normal bilaterally. Back : non-tender to palpation, no CVA tenderness. Neuro : CN II - XII intact, Upper and lower extremities have equal and full strength Discharge Data Studies Completed and Pending Completed Studies During Hospitalization Category Date Time Status XR chest 1V portable [id number] Routine Exams 01/19/24 07:52 Completed Radiology Impressions C-Arm Fluoroscopy 01/19/24 06:48 IMPRESSION: Left infusion port and catheter placement, proper position. No pneumothorax. Chest X-Ray 01/19/24 07:52 IMPRESSION: Satisfactory position LEFT subclavian Mediport. Laboratory Results POC Glucose 160 mg/dL (70-110) H 01/19/24 06:22 Procedures Performed Mediport placement Vitals Last Vital Signs Temp 97.8 F 01/20/24 17:00 Pulse 67 01/20/24 17:00 Resp 18 01/20/24 17:00 BP 180/89 09/10/24 17:00 Pulse Ox 97 01/20/24 04:00 O2 Del Method Room Air 01/19/24 22:30 O2 Flow Rate 6 01/19/24 07:50 Discharge Plan Discharge Patient Disposition: Home Condition: Stable Prescriptions: New hydrocodone-acetaminophen 7.5-325 mg tablet 1 tab PO Q6H PRN (Reason: pain) Qty: 10 0RF Colace 100 mg capsule 100 mg PO BID Qty: 14 0RF Continued albuterol sulfate 90 mcg/actuation HFA aerosol inhaler 2 puff INHALATION Q6H PRN (Reason: Shortness Of Breath) famotidine 40 mg tablet 40 mg PO DAILY atorvastatin 80 mg tablet 80 mg PO DAILY lisinopril [Zestril] 20 mg tablet 20 mg PO DAILY aspirin [Aspir-81] 81 mg tablet,delayed release (DR/EC) 81 mg PO DAILY gabapentin [Neurontin] 300 mg capsule 300 mg PO BID omega-3 fatty acids [Fish Oil Concentrate] 1,000 mg capsule 1,000 mg PO DAILY ferrous sulfate 325 mg (65 mg iron) tablet 325 mg PO .WEEKLY PRN (Reason: .low iron) omeprazole 20 mg capsule,delayed release(DR/EC) 20 mg PO DAILY (DME) CAM boot See Rx Instructions .Route .MEDSUPPLY Qty: 1 0RF Rx Instructions: As directed nitroglycerin [Nitrostat] 0.4 mg tablet, sublingual 0.4 mg SUBLINGUAL Q5M PRN (Reason: chest pain) Qty: 60 2RF Rx Instructions: do not exceed 3 doses per episode metoprolol succinate 25 mg tablet extended release 24 hr 25 mg PO DAILY Qty: 30 1RF metformin 500 mg tablet 500 mg PO DAILY potassium chloride 10 mEq capsule, extended release 10 meq PO DAILY Qty: 7 0RF hydrochlorothiazide 12.5 mg tablet 12.5 mg PO DAILY tamsulosin 0.4 mg capsule 0.4 mg PO DAILY Rx Instructions: TAKE 1 CAPSULE DAILY lorazepam [Ativan] 1 mg tablet 0.5 - 1 mg PO Q6H PRN (Reason: Severe Nausea) prochlorperazine maleate [Compazine] 10 mg tablet 10 mg PO Q6H PRN (Reason: nausea and vomiting) Held tramadol 50 mg tablet 50 mg PO Q6H PRN (Reason: Pain) Hold Instructions: Resume on 01/22/24. prasugrel [Effient] 10 mg tablet 10 mg PO DAILY Hold Instructions: Resume on 03/29/23. Discharge Orders: Discharge Order (Routine); Ordered 01/20/24 Ordered By: Davon Lee Referrals: Davon Lee DO [Physician] - 2 weeks Discharge Diet: Advance as tolerated Discharge Activity: Resume usual activity Patient Instructions: Acute Wound Care (DC), OB Discharge Report, Post Anesthesia Care Activity Restrictions/Additional Instructions: Do not soak incision underwater for 2 weeks. Shower regularly. Mediport may be used immediately Discharge Attestations Time Spent in Discharge Care*: less than 30 min Quality Metrics Clinical Quality Measures [ No reported AMI, CVA or VTE this stay] Coding Level of Care Code Acute Code for Chg Terese
--- NOTE | 2024-01-20 13:46 | PC.NURSE ---
1315 PT WAS UP IN ROOM, HAS BEEN SLEEPING SINCE ZOFRAN GIVEN SO THIS OIL LEASE OPERATOR DID NOT WAKE HER UP. HAD PATIENT SAT ON SIDE OF BED AND HER BLOOD PRESSURE WAS 78/43 WITH CUFF ON LOWER ARM DUE TO PORT PLACEMENT AND NO BLOOD PRESSURE ON RIGHT ARM DUE TO MASTECTOMY. PATIENT DID SAY SHE WAS A LITTLE DIZZY WHEN SHE GOT UP. BLOOD PRESSURE RIGHT AFTER THE LOW ONE WAS 178/117. HAD PATIENT LAY DOWN AND RETOOK BLOOD PRESSURE AND IT WAS 187/96, HAD HER SIT UP AND IT WAS 178/74 AND THEN STANDING WAS 169/115. ASKED PATIENT IF SHE WAS ON BLOOD PRESSURE MEDS AND SHE SAID SHE WAS. NOTHING ORDERED SO THIS OIL LEASE OPERATOR CALLED DR. SHABAZZ AGAIN AND ASKED HIM IF I COULD GIVE PATIENT HER BLOOD PRESSURE MEDICATIONS AND SHE SAID THAT SHE COULD HAVE HOME MEDS. THIS OIL LEASE OPERATOR PUT IN HOME MEDICATIONS.
[2024-01-20] MEDS: hydroCHLOROthiazide 25 mg Tablet 12.5 MG PO (13:57)
[2024-01-20] MEDS: metoprolol succinate ER (24 HR) 25 mg Tablet PO (13:58)
[2024-01-20] MEDS: tamsulosin 0.4 mg Capsule PO (13:58)
[2024-01-20] MEDS: lisinopril 20 mg Tablet PO (14:01)
--- NOTE | 2024-01-20 17:56 | PC.NURSE ---
0980 PATIENT PUT ON EMERGENCY LIGHT AND SHE WAS LEANING OUT TOILET THROWING UP. THIS HAM TRIMMER HELPED HER BACK TO BED AND BAGS GIVEN. AFTER TALKING WITH DR. SHABAZZ I WENT INTO CHECK ON HER AND SHE HAD THROWN UP ABOUT 1000MLS.
== END 2024-01-20 17:00 | disposition home or self-care (01) ==
PROVIDERS: Admitting Provider Surgery; PCP Family Medicine; Visit Provider Surgery
PROC: (CPT 36561; principal; 2024-01-19 07:00)
DX: C20 Malignant neoplasm of rectum (principal); J44.9 Chronic obstructive pulmonary disease, unspecified; I10 Essential (primary) hypertension; I25.2 Old myocardial infarction; E78.5 Hyperlipidemia, unspecified; Z86.010 Personal history of colon polyps; H81.09 Meniere's disease, unspecified ear; Z87.891 Personal history of nicotine dependence
CPT/HCPCS: 36561; 36416; 71045; 76000; 77001; 82962; C1788; G0378; J0690; J1644; J2371; J2704; J3010; J7030; Q0162

== ENCOUNTER → 2024-02-02 10:55 | Outpatient (BNVA) | payer MEDICARE, MEDICAID, SELFPAY | PROVIDERS: PCP Family Medicine; Visit Provider Surgery | DX: C20 Malignant neoplasm of rectum (principal); Z95.828 Presence of other vascular implants and grafts | CPT/HCPCS: 99214 ==

== ENCOUNTER 2024-02-03 10:45 | Oncology outpatient (recurring) (ONCR) | payer MEDICARE, MEDICAID, SELFPAY ==
[2024-01-27 07:56] LABS: Basophils % 0.9 %; Eosinophils # 0.2 10^3/uL (0.0-0.8); Eosinophils % 3.7 %; Hematocrit 38.4 % (36-47); Lymphocytes # 0.7 10^3/uL (0.8-4.8); Mean Corpuscular HGB Conc 33.9 g/dL (30-55); Mean Corpuscular Hemoglobin 31.1 pg (27-33); Mean Corpuscular Volume 91.9 fl (85-98); Mean Platelet Volume 9.5 fL (7.4-10.4); Monocytes # 0.4 10^3/uL (0.2-0.9); Monocytes % 9.9 %; Neutrophils # 2.96 10^3/uL (1.8-7.7); Nucleated Red Blood Cells % 0 %; Platelet Count 237 10^3/cmm (157-399); Red Blood Count 4.18 10^6/uL (3.85-5.65); Red Cell Distribution Width 13.1 % (12.1-15.1); White Blood Count 4.35 10^3/uL (3.29-11.43)
[2024-01-27 08:24] LABS: Carcinoembryonic Antigen 2.8 ng/mL (0.0-4.7)
[2024-01-27 08:35] LABS: Alanine Aminotransferase 26 U/L (0-33); Albumin Level 4.3 g/dL (3.5-5.2); Alkaline Phosphatase 104 U/L (35-105); Anion Gap 17.9 (5-19); Aspartate Amino Transferase 19 U/L (0-32); Blood Urea Nitrogen 18 mg/dL (8-23); Carbon Dioxide 24 mmol/L (22-29); Chloride 101 mmol/L (98-107); Creatinine Clr Calc Pharmacy 60.8863; Globulin 2.4 g/dL (1.3-4.6); Glucose 144 mg/dL (65-115); Osmolality Calculated 290 mOsm/kg (285-295); Potassium 4.9 mmol/L (3.5-5.1); Sodium 138 mmol/L (136-145); Total Bilirubin 0.3 mg/dL (0.15-1.2); Total Protein 6.7 g/dL (6.6-8.7)
[2024-01-27 09:40] VITALS: BP 133/88; PULSE 71; RESP 16; TEMP 36.2; O2SAT 95
[2024-01-27 09:43] VITALS: BMI 32.4
[2024-01-27] MEDS: dextrose 5% 250 ML 75 ML IV (09:55)
[2024-01-27] MEDS: palonosetron 0.25 mg/5 mL SDV IVP (09:56)
[2024-01-27] MEDS: dexamethasone 4 mg/mL INJ 5 mL 12 MG IVP (09:58)
[2024-01-27] MEDS: famotidine 20 mg/2 mL INJ 40 MG IVP (10:03)
[2024-01-27] MEDS: oxaliplatin 100 MG, oxaliplatin 30 MG in dextrose 5% 250 ML 138 MG IV (10:41)
[2024-01-27] MEDS: leucovorin 690 MG in dextrose 5% 250 ML 62.5 MG IV (10:41)
[2024-01-27 12:45] VITALS: BP 125/73; PULSE 70; RESP 16; TEMP 36.6; O2SAT 97
[2024-01-27] MEDS: fluorouraciL 4,150 MG, elastomeric pump 1 PUMP in sodium chloride 0.9% (100 ml) 9 ML IV (12:47)
[2024-01-30 11:20] VITALS: BP 126/67; PULSE 73; RESP 16; TEMP 36.5; O2SAT 95
[2024-02-03 11:00] LABS: Hematocrit 38.4 % (36-47); Mean Corpuscular Hemoglobin 31.1 pg (27-33); Mean Corpuscular Volume 90.6 fl (85-98); Red Blood Count 4.24 10^6/uL (3.85-5.65); White Blood Count 3.88 10^3/uL (3.29-11.43)
[2024-02-03 11:01] LABS: Eosinophils # 0.2 10^3/uL (0.0-0.8); Eosinophils % 4.6 %; Lymphocytes # 0.7 10^3/uL (0.8-4.8); Lymphocytes % 17.8 %; Mean Corpuscular HGB Conc 34.4 g/dL (30-55); Mean Platelet Volume 9.7 fL (7.4-10.4); Monocytes # 0.3 10^3/uL (0.2-0.9); Monocytes % 7.7 %; Neutrophils # 2.64 10^3/uL (1.8-7.7); Neutrophils % 68.1 %; Nucleated Red Blood Cells % 0 %; Platelet Count 222 10^3/cmm (157-399); Red Cell Distribution Width 12.6 % (12.1-15.1)
[2024-02-03 11:25] LABS: Alanine Aminotransferase 32 U/L (0-33); Albumin Level 4.3 g/dL (3.5-5.2); Alkaline Phosphatase 101 U/L (35-105); Aspartate Amino Transferase 20 U/L (0-32); Blood Urea Nitrogen 16 mg/dL (8-23); Calcium 9.1 mg/dL (8.5-10.5); Carbon Dioxide 24 mmol/L (22-29); Chloride 99 mmol/L (98-107); Creatinine Clr Calc Pharmacy 56.7704; Globulin 2.2 g/dL (1.3-4.6); Glucose 161 mg/dL (65-115); Osmolality Calculated 285 mOsm/kg (285-295); Sodium 135 mmol/L (136-145); Total Bilirubin 0.3 mg/dL (0.15-1.2); Total Protein 6.5 g/dL (6.6-8.7)
== END 2024-02-09 23:59 | disposition home or self-care (01) ==
PROVIDERS: Internal Medicine Medical Oncology; Nurse Practitioner; PCP Family Medicine; Visit Provider Radiology Radiation Oncology
DX: Z53.9 Procedure and treatment not carried out, unspecified reason (principal); C20 Malignant neoplasm of rectum; G62.9 Polyneuropathy, unspecified; Z79.899 Other long term (current) drug therapy; Z95.828 Presence of other vascular implants and grafts; Z87.891 Personal history of nicotine dependence; Z92.3 Personal history of irradiation
CPT/HCPCS: 36591; 80053; 82378; 85025; 96368; 96375; 96413; 96415; 96416; 96523; 99214; 99215; J0640; J1100; J2469; J3490; J7060; J9190; J9263

== ENCOUNTER 2024-03-11 12:30 | Oncology outpatient (recurring) (ONCR) | payer MEDICARE, MEDICAID, SELFPAY ==
[2024-02-10 08:37] LABS: Basophils % 0.7 %; Eosinophils # 0.2 10^3/uL (0.0-0.8); Eosinophils % 4.1 %; Hematocrit 37.5 % (36-47); Lymphocytes # 0.7 10^3/uL (0.8-4.8); Lymphocytes % 15.8 %; Mean Corpuscular HGB Conc 33.6 g/dL (30-55); Mean Corpuscular Volume 92.4 fl (85-98); Mean Platelet Volume 9.6 fL (7.4-10.4); Monocytes # 0.4 10^3/uL (0.2-0.9); Neutrophils # 2.88 10^3/uL (1.8-7.7); Neutrophils % 68.7 %; Nucleated Red Blood Cells % 0 %; Platelet Count 183 10^3/cmm (157-399); Red Blood Count 4.06 10^6/uL (3.85-5.65); Red Cell Distribution Width 13.5 % (12.1-15.1); White Blood Count 4.19 10^3/uL (3.29-11.43)
[2024-02-10 08:56] LABS: Alanine Aminotransferase 26 U/L (0-33); Albumin Level 4.4 g/dL (3.5-5.2); Alkaline Phosphatase 106 U/L (35-105); Anion Gap 16.8 (5-19); Aspartate Amino Transferase 17 U/L (0-32); Blood Urea Nitrogen 17 mg/dL (8-23); Calcium 9.2 mg/dL (8.5-10.5); Carbon Dioxide 26 mmol/L (22-29); Chloride 101 mmol/L (98-107); Creatinine Clr Calc Pharmacy 50.6222; Globulin 2.4 g/dL (1.3-4.6); Glucose 164 mg/dL (65-115); Osmolality Calculated 293 mOsm/kg (285-295); Potassium 4.8 mmol/L (3.5-5.1); Sodium 139 mmol/L (136-145); Total Bilirubin 0.3 mg/dL (0.15-1.2); Total Protein 6.8 g/dL (6.6-8.7)
[2024-02-10] MEDS: dextrose 5% 250 ML 75 ML IV (09:42)
[2024-02-10] MEDS: palonosetron 0.25 mg/5 mL SDV IVP (09:47)
[2024-02-10] MEDS: famotidine 20 mg/2 mL INJ 40 MG IVP (09:48)
[2024-02-10] MEDS: dexamethasone 4 mg/mL INJ 5 mL 12 MG IVP (09:52)
[2024-02-10] MEDS: oxaliplatin 100 MG, oxaliplatin 48 MG in dextrose 5% 250 ML 139.8 MG IV (10:18)
[2024-02-10] MEDS: leucovorin 690 MG in dextrose 5% 250 ML 62.5 MG IV (10:18)
[2024-02-10] MEDS: fluorouraciL 4,150 MG, elastomeric pump 1 PUMP in sodium chloride 0.9% (100 ml) 9 ML IV (12:34)
[2024-02-10 12:35] VITALS: BP 165/87; PULSE 72; RESP 16; TEMP 37.1; O2SAT 98
[2024-02-24 08:17] LABS: Basophils % 0.7 %; Eosinophils # 0.1 10^3/uL (0.0-0.8); Eosinophils % 2.3 %; Hematocrit 37.5 % (36-47); Lymphocytes # 0.6 10^3/uL (0.8-4.8); Lymphocytes % 13.5 %; Mean Corpuscular HGB Conc 33.3 g/dL (30-55); Mean Corpuscular Hemoglobin 31.5 pg (27-33); Mean Corpuscular Volume 94.5 fl (85-98); Mean Platelet Volume 9.7 fL (7.4-10.4); Monocytes # 0.4 10^3/uL (0.2-0.9); Monocytes % 8.8 %; Neutrophils # 3.27 10^3/uL (1.8-7.7); Neutrophils % 73.8 %; Nucleated Red Blood Cells % 0 %; Platelet Count 148 10^3/cmm (157-399); Red Blood Count 3.97 10^6/uL (3.85-5.65); Red Cell Distribution Width 14.5 % (12.1-15.1); White Blood Count 4.43 10^3/uL (3.29-11.43)
[2024-02-24 08:36] LABS: Alanine Aminotransferase 31 U/L (0-33); Albumin Level 4.3 g/dL (3.5-5.2); Alkaline Phosphatase 110 U/L (35-105); Anion Gap 16.4 (5-19); Aspartate Amino Transferase 23 U/L (0-32); Blood Urea Nitrogen 13 mg/dL (8-23); Calcium 8.9 mg/dL (8.5-10.5); Carbon Dioxide 23 mmol/L (22-29); Chloride 100 mmol/L (98-107); Creatinine Clr Calc Pharmacy 56.7704; Glucose 235 mg/dL (65-115); Osmolality Calculated 288 mOsm/kg (285-295); Potassium 4.4 mmol/L (3.5-5.1); Sodium 135 mmol/L (136-145); Total Bilirubin 0.3 mg/dL (0.15-1.2); Total Protein 6.3 g/dL (6.6-8.7)
[2024-02-24 10:10] VITALS: BP 110/70; PULSE 64; RESP 16; TEMP 36.4; O2SAT 97
[2024-02-24] MEDS: dextrose 5% 250 ML 75 ML IV (10:21)
[2024-02-24] MEDS: famotidine 20 mg/2 mL INJ 40 MG IVP (10:21)
[2024-02-24] MEDS: palonosetron 0.25 mg/5 mL SDV IVP (10:22)
[2024-02-24] MEDS: dexamethasone 4 mg/mL INJ 5 mL 12 MG IVP (10:23)
[2024-02-24] MEDS: leucovorin 690 MG in dextrose 5% 250 ML 62.5 MG IV (10:55)
[2024-02-24] MEDS: oxaliplatin 100 MG, oxaliplatin 48 MG in dextrose 5% 250 ML 139.8 MG IV (10:55)
[2024-02-24] MEDS: fluorouraciL 4,150 MG, elastomeric pump 1 PUMP in sodium chloride 0.9% (100 ml) 9 ML IV (13:07)
[2024-02-24 13:15] VITALS: BP 170/90; PULSE 71; RESP 16; TEMP 36.4; O2SAT 98
[2024-02-26 11:34] VITALS: BP 153/84; PULSE 68; RESP 18; TEMP 36.5; O2SAT 98
[2024-03-09] MEDS: alteplase 1 mg/mL SDV 2 mL 2 MG INTRACATH (08:13)
[2024-03-09 08:23] LABS: Basophils % 0.8 %; Eosinophils # 0.1 10^3/uL (0.0-0.8); Eosinophils % 2.7 %; Hematocrit 37.6 % (36-47); Lymphocytes # 0.5 10^3/uL (0.8-4.8); Lymphocytes % 14.6 %; Mean Corpuscular HGB Conc 33.5 g/dL (30-55); Mean Corpuscular Hemoglobin 31.3 pg (27-33); Mean Corpuscular Volume 93.5 fl (85-98); Mean Platelet Volume 9.9 fL (7.4-10.4); Monocytes # 0.3 10^3/uL (0.2-0.9); Monocytes % 9.3 %; Neutrophils # 2.62 10^3/uL (1.8-7.7); Neutrophils % 72.1 %; Nucleated Red Blood Cells % 0 %; Platelet Count 95 10^3/cmm (157-399); Red Blood Count 4.02 10^6/uL (3.85-5.65); Red Cell Distribution Width 15.4 % (12.1-15.1); White Blood Count 3.64 10^3/uL (3.29-11.43)
[2024-03-09 08:59] LABS: Carcinoembryonic Antigen 5.3 ng/mL (0.0-4.7)
[2024-03-09 09:10] LABS: Alanine Aminotransferase 31 U/L (0-33); Albumin Level 4.4 g/dL (3.5-5.2); Alkaline Phosphatase 116 U/L (35-105); Anion Gap 17.6 (5-19); Aspartate Amino Transferase 30 U/L (0-32); Blood Urea Nitrogen 9 mg/dL (8-23); Calcium 9.3 mg/dL (8.5-10.5); Carbon Dioxide 25 mmol/L (22-29); Chloride 96 mmol/L (98-107); Creatinine Clr Calc Pharmacy 56.5913; Globulin 2.3 g/dL (1.3-4.6); Glucose 235 mg/dL (65-115); Lactate Dehydrogenase 174 U/L (135-214); Osmolality Calculated 286 mOsm/kg (285-295); Potassium 3.6 mmol/L (3.5-5.1); Sodium 135 mmol/L (136-145); Total Bilirubin 0.4 mg/dL (0.15-1.2); Total Protein 6.7 g/dL (6.6-8.7)
[2024-03-09] MEDS: dextrose 5% 250 ML 75 ML IV (11:34)
[2024-03-09] MEDS: famotidine 20 mg/2 mL INJ 40 MG IVP (11:34)
[2024-03-09] MEDS: palonosetron 0.25 mg/5 mL SDV IVP (11:37)
[2024-03-09] MEDS: dexamethasone 4 mg/mL INJ 5 mL 12 MG IVP (11:38)
[2024-03-09] MEDS: oxaliplatin 100 MG, oxaliplatin 48 MG in dextrose 5% 250 ML 139.8 MG IV (12:01)
[2024-03-09] MEDS: leucovorin 690 MG in dextrose 5% 250 ML 62.5 MG IV (12:01)
[2024-03-09] MEDS: fluorouraciL 4,150 MG, elastomeric pump 1 PUMP in sodium chloride 0.9% (100 ml) 9 ML IV (14:09)
[2024-03-09 14:10] VITALS: BP 159/93; PULSE 77; RESP 16; TEMP 36.9; O2SAT 97
== END 2024-03-11 23:59 | disposition home or self-care (01) ==
PROVIDERS: Internal Medicine Hematology & Oncology; Nurse Practitioner; PCP Family Medicine; Visit Provider Radiology Radiation Oncology
DX: Z45.1 Encounter for adjustment and management of infusion pump (principal); Z53.9 Procedure and treatment not carried out, unspecified reason
CPT/HCPCS: 80053; 82378; 83615; 85025; 96368; 96375; 96413; 96415; 96416; 96523; 99214; J0640; J1100; J2469; J2997; J3490; J7060; J9190; J9263

== ENCOUNTER 2024-03-25 12:15 | Oncology outpatient (recurring) (ONCR) | payer MEDICARE, MEDICAID, SELFPAY ==
[2024-03-23] MEDS: alteplase 1 mg/mL SDV 2 mL 2 MG INTRACATH ×2 (07:57→09:20)
[2024-03-23 08:01] LABS: Basophils % 0.4 %; Eosinophils # 0.1 10^3/uL (0.0-0.8); Eosinophils % 3.2 %; Hematocrit 37.4 % (36-47); Lymphocytes # 0.4 10^3/uL (0.8-4.8); Lymphocytes % 15.1 %; Mean Corpuscular HGB Conc 32.9 g/dL (30-55); Mean Corpuscular Hemoglobin 31.5 pg (27-33); Mean Corpuscular Volume 95.7 fl (85-98); Mean Platelet Volume 10.6 fL (7.4-10.4); Monocytes # 0.3 10^3/uL (0.2-0.9); Monocytes % 10.8 %; Neutrophils # 1.76 10^3/uL (1.8-7.7); Neutrophils % 70.1 %; Nucleated Red Blood Cells % 0 %; Platelet Count 108 10^3/cmm (157-399); Red Blood Count 3.91 10^6/uL (3.85-5.65); Red Cell Distribution Width 16.2 % (12.1-15.1); White Blood Count 2.51 10^3/uL (3.29-11.43)
[2024-03-23 08:26] LABS: Carcinoembryonic Antigen 7.3 ng/mL (0.0-4.7)
[2024-03-23 08:37] LABS: Alanine Aminotransferase 42 U/L (0-33); Alkaline Phosphatase 138 U/L (35-105); Anion Gap 14.4 (5-19); Aspartate Amino Transferase 30 U/L (0-32); Blood Urea Nitrogen 10 mg/dL (8-23); Calcium 8.8 mg/dL (8.5-10.5); Carbon Dioxide 25 mmol/L (22-29); Chloride 100 mmol/L (98-107); Creatinine Clr Calc Pharmacy 50.3231; Globulin 2.4 g/dL (1.3-4.6); Glucose 157 mg/dL (65-115); Lactate Dehydrogenase 177 U/L (135-214); Osmolality Calculated 282 mOsm/kg (285-295); Potassium 4.4 mmol/L (3.5-5.1); Sodium 135 mmol/L (136-145); Total Bilirubin 0.3 mg/dL (0.15-1.2); Total Protein 6.4 g/dL (6.6-8.7)
[2024-03-23] MEDS: dextrose 5% 250 ML 75 ML IV (10:08)
[2024-03-23] MEDS: palonosetron 0.25 mg/5 mL SDV IVP (10:21)
[2024-03-23] MEDS: dexamethasone 4 mg/mL INJ 5 mL 12 MG IVP (10:24)
[2024-03-23] MEDS: famotidine 20 mg/2 mL INJ 40 MG IVP (10:26)
[2024-03-23] MEDS: leucovorin 690 MG in dextrose 5% 250 ML 62.5 MG IV (10:53)
[2024-03-23] MEDS: oxaliplatin 100 MG, oxaliplatin 48 MG in dextrose 5% 250 ML 139.8 MG IV (10:54)
[2024-03-23] MEDS: fluorouraciL 4,150 MG, elastomeric pump 1 PUMP in sodium chloride 0.9% (100 ml) 9 ML IV (13:05)
[2024-03-23 13:12] VITALS: BP 159/82; PULSE 76; RESP 16; TEMP 36.2; O2SAT 98
[2024-03-25 12:53] VITALS: BP 134/72; PULSE 98; RESP 18; TEMP 36.2; O2SAT 98
== END 2024-04-10 23:59 | disposition home or self-care (01) ==
PROVIDERS: Internal Medicine Hematology & Oncology; PCP Family Medicine; Visit Provider Radiology Radiation Oncology
DX: Z53.9 Procedure and treatment not carried out, unspecified reason; Z45.1 Encounter for adjustment and management of infusion pump
CPT/HCPCS: 36415; 80053; 82378; 83615; 85025; 96365; 96366; 96375; 96413; 96415; 96416; 96523; 99214; J0640; J1100; J2469; J2997; J3490; J7060; J9190; J9263

== ENCOUNTER 2024-05-11 08:31 | Oncology outpatient (recurring) (ONCR) | payer MEDICARE, MEDICAID, SELFPAY ==
[2024-04-13 08:03] LABS: Basophils % 1.1 %; Eosinophils # 0.1 10^3/uL (0.0-0.8); Eosinophils % 1.9 %; Hematocrit 34.7 % (36-47); Lymphocytes # 0.4 10^3/uL (0.8-4.8); Lymphocytes % 15.2 %; Mean Corpuscular HGB Conc 33.4 g/dL (30-55); Mean Corpuscular Volume 95.6 fl (85-98); Monocytes # 0.4 10^3/uL (0.2-0.9); Monocytes % 13.4 %; Neutrophils # 1.81 10^3/uL (1.8-7.7); Neutrophils % 67.3 %; Nucleated Red Blood Cells % 0 %; Platelet Count 156 10^3/cmm (157-399); Red Blood Count 3.63 10^6/uL (3.85-5.65); Red Cell Distribution Width 15.9 % (12.1-15.1); White Blood Count 2.69 10^3/uL (3.29-11.43)
[2024-04-13 08:29] LABS: Carcinoembryonic Antigen 5.3 ng/mL (0.0-4.7)
[2024-04-13 08:40] LABS: Alanine Aminotransferase 23 U/L (0-33); Albumin Level 4.1 g/dL (3.5-5.2); Alkaline Phosphatase 134 U/L (35-105); Anion Gap 16.6 (5-19); Aspartate Amino Transferase 24 U/L (0-32); Blood Urea Nitrogen 12 mg/dL (8-23); Calcium 9.1 mg/dL (8.5-10.5); Carbon Dioxide 23 mmol/L (22-29); Chloride 104 mmol/L (98-107); Creatinine Clr Calc Pharmacy 56.8602; Globulin 2.2 g/dL (1.3-4.6); Glucose 171 mg/dL (65-115); Lactate Dehydrogenase 196 U/L (135-214); Magnesium 2.1 mg/dL (1.7-2.3); Osmolality Calculated 292 mOsm/kg (285-295); Potassium 4.6 mmol/L (3.5-5.1); Sodium 139 mmol/L (136-145); Total Bilirubin 0.3 mg/dL (0.15-1.2); Total Protein 6.3 g/dL (6.6-8.7)
[2024-04-13] MEDS: dexamethasone 4 mg/mL INJ 5 mL 12 MG IVP (10:20)
[2024-04-13] MEDS: dextrose 5% 250 ML 50 ML IV (10:20)
[2024-04-13] MEDS: palonosetron 0.25 mg/5 mL SDV IVP (10:25)
[2024-04-13] MEDS: famotidine 20 mg/2 mL INJ 40 MG IVP (10:30)
[2024-04-13] MEDS: leucovorin 690 MG in dextrose 5% 250 ML 62.5 MG IV (11:37)
[2024-04-13] MEDS: oxaliplatin 100 MG, oxaliplatin 30 MG in dextrose 5% 250 ML 138 MG IV (11:37)
[2024-04-13] MEDS: fluorouraciL 4,150 MG, elastomeric pump 1 PUMP in sodium chloride 0.9% (100 ml) 9 ML IV (14:17)
[2024-04-13 14:24] VITALS: BP 170/94; PULSE 75; TEMP 36.1; O2SAT 97
[2024-05-11] MEDS: alteplase 1 mg/mL SDV 2 mL 2 MG INTRACATH (09:00)
[2024-05-11 09:10] LABS: Basophils % 1.1 %; Eosinophils # 0.1 10^3/uL (0.0-0.8); Eosinophils % 1.3 %; Hematocrit 38.4 % (36-47); Lymphocytes # 0.5 10^3/uL (0.8-4.8); Lymphocytes % 12.8 %; Mean Corpuscular HGB Conc 33.1 g/dL (30-55); Mean Corpuscular Hemoglobin 32.5 pg (27-33); Mean Corpuscular Volume 98.2 fl (85-98); Mean Platelet Volume 10.1 fL (7.4-10.4); Monocytes # 0.3 10^3/uL (0.2-0.9); Monocytes % 8.8 %; Neutrophils # 2.81 10^3/uL (1.8-7.7); Neutrophils % 75.2 %; Nucleated Red Blood Cells % 0 %; Platelet Count 161 10^3/cmm (157-399); Red Blood Count 3.91 10^6/uL (3.85-5.65); Red Cell Distribution Width 14.4 % (12.1-15.1); White Blood Count 3.74 10^3/uL (3.29-11.43)
[2024-05-11 09:30] LABS: Carcinoembryonic Antigen 5.5 ng/mL (0.0-4.7)
[2024-05-11 09:41] LABS: Alanine Aminotransferase 40 U/L (0-33); Albumin Level 4.5 g/dL (3.5-5.2); Alkaline Phosphatase 152 U/L (35-105); Anion Gap 17.1 (5-19); Aspartate Amino Transferase 30 U/L (0-32); Blood Urea Nitrogen 11 mg/dL (8-23); Calcium 9.8 mg/dL (8.5-10.5); Carbon Dioxide 23 mmol/L (22-29); Chloride 102 mmol/L (98-107); Creatinine Clr Calc Pharmacy 56.5913; Globulin 2.5 g/dL (1.3-4.6); Glucose 150 mg/dL (65-115); Osmolality Calculated 288 mOsm/kg (285-295); Potassium 4.1 mmol/L (3.5-5.1); Sodium 138 mmol/L (136-145); Total Bilirubin 0.4 mg/dL (0.15-1.2)
[2024-05-11 09:52] VITALS: BP 181/104; PULSE 101; RESP 17; TEMP 36.4; O2SAT 97
[2024-05-11 09:59] VITALS: BP 156/101
[2024-05-11] MEDS: dextrose 5% 250 ML 75 ML IV (10:11)
[2024-05-11] MEDS: dexamethasone 4 mg/mL INJ 5 mL 12 MG IVP (10:15)
[2024-05-11] MEDS: palonosetron 0.25 mg/5 mL SDV IVP (10:15)
[2024-05-11] MEDS: famotidine 20 mg/2 mL INJ 40 MG IVP (10:17)
[2024-05-11] MEDS: leucovorin 690 MG in dextrose 5% 250 ML 62.5 MG IV (11:09)
[2024-05-11] MEDS: oxaliplatin 100 MG, oxaliplatin 30 MG in dextrose 5% 250 ML 138 MG IV (11:10)
[2024-05-11 12:18] VITALS: BP 181/92; PULSE 83; RESP 16; TEMP 36.4; O2SAT 97
[2024-05-11] MEDS: fluorouraciL 4,150 MG, elastomeric pump 1 PUMP in sodium chloride 0.9% (100 ml) 9 ML IV (13:33)
[2024-05-11 13:35] VITALS: BP 174/89; PULSE 88; RESP 15; TEMP 36.4; O2SAT 97
[2024-05-11 13:47] VITALS: BP 174/89; PULSE 88; RESP 15; TEMP 36.4; O2SAT 97
== END 2024-05-11 23:59 | disposition home or self-care (01) ==
PROVIDERS: Nurse Practitioner; PCP Family Medicine; Visit Provider Radiology Radiation Oncology
DX: Z53.9 Procedure and treatment not carried out, unspecified reason (principal); Z51.11 Encounter for antineoplastic chemotherapy; C20 Malignant neoplasm of rectum; Z79.899 Other long term (current) drug therapy; Z79.52 Long term (current) use of systemic steroids; Z87.891 Personal history of nicotine dependence; Z95.828 Presence of other vascular implants and grafts; Z92.3 Personal history of irradiation; Z79.69 Long term (current) use of other immunomodulators and immunosuppressants; Z45.1 Encounter for adjustment and management of infusion pump
CPT/HCPCS: 36415; 36593; 80053; 82378; 83615; 83735; 85025; 96365; 96366; 96368; 96375; 96413; 96415; 96416; 96523; 99214; J0640; J1100; J2469; J2997; J3490; J7060; J9190; J9263

== ENCOUNTER → 2024-05-25 13:47 | Outpatient (BNVA) | payer MEDICARE, MEDICAID, SELFPAY | PROVIDERS: PCP Family Medicine; Visit Provider Nurse Practitioner Family | DX: R07.9 Chest pain, unspecified (principal); I25.10 Atherosclerotic heart disease of native coronary artery without angina pectoris; I21.9 Acute myocardial infarction, unspecified; Z98.61 Coronary angioplasty status | CPT/HCPCS: 93005; 99214 ==

== ENCOUNTER 2024-06-09 13:15 | Oncology outpatient (recurring) (ONCR) | payer MEDICARE, MEDICAID, SELFPAY ==
[2024-05-13 14:10] VITALS: BP 162/83; PULSE 74; RESP 16; TEMP 36.3; O2SAT 96
[2024-05-26 09:28] LABS: Basophils % 0.5 %; Eosinophils # 0.1 10^3/uL (0.0-0.8); Eosinophils % 2.3 %; Hematocrit 36.6 % (36-47); Lymphocytes # 0.5 10^3/uL (0.8-4.8); Lymphocytes % 13.5 %; Mean Corpuscular HGB Conc 33.3 g/dL (30-55); Mean Corpuscular Hemoglobin 32.3 pg (27-33); Mean Corpuscular Volume 96.8 fl (85-98); Mean Platelet Volume 10.3 fL (7.4-10.4); Monocytes # 0.5 10^3/uL (0.2-0.9); Monocytes % 12.5 %; Neutrophils # 2.78 10^3/uL (1.8-7.7); Neutrophils % 70.9 %; Nucleated Red Blood Cells % 0 %; Platelet Count 152 10^3/cmm (157-399); Red Blood Count 3.78 10^6/uL (3.85-5.65); Red Cell Distribution Width 14.1 % (12.1-15.1); White Blood Count 3.92 10^3/uL (3.29-11.43)
[2024-05-26 09:47] LABS: Alanine Aminotransferase 30 U/L (0-33); Albumin Level 4.3 g/dL (3.5-5.2); Alkaline Phosphatase 153 U/L (35-105); Anion Gap 18.1 (5-19); Aspartate Amino Transferase 29 U/L (0-32); Blood Urea Nitrogen 15 mg/dL (8-23); Calcium 10.1 mg/dL (8.5-10.5); Carbon Dioxide 26 mmol/L (22-29); Chloride 98 mmol/L (98-107); Globulin 2.4 g/dL (1.3-4.6); Glucose 201 mg/dL (65-115); Osmolality Calculated 293 mOsm/kg (285-295); Potassium 4.1 mmol/L (3.5-5.1); Sodium 138 mmol/L (136-145); Total Bilirubin 0.3 mg/dL (0.15-1.2); Total Protein 6.7 g/dL (6.6-8.7)
[2024-05-26] MEDS: dextrose 5% 250 ML 75 ML IV (11:24)
[2024-05-26] MEDS: alteplase 1 mg/mL SDV 2 mL 2 MG INTRACATH (11:34)
[2024-05-26] MEDS: famotidine 20 mg/2 mL INJ 40 MG IVP (12:26)
[2024-05-26] MEDS: palonosetron 0.25 mg/5 mL SDV IVP (12:29)
[2024-05-26] MEDS: dexamethasone 4 mg/mL INJ 5 mL 12 MG IVP (12:32)
[2024-05-26] MEDS: oxaliplatin 100 MG, oxaliplatin 30 MG in dextrose 5% 250 ML 138 MG IV (13:06)
[2024-05-26] MEDS: leucovorin 690 MG in dextrose 5% 250 ML 62.5 MG IV (13:07)
[2024-05-26 15:21] VITALS: BP 156/78; PULSE 79; RESP 22; TEMP 36.6; O2SAT 95
[2024-05-26] MEDS: fluorouraciL 4,150 MG, elastomeric pump 1 PUMP in sodium chloride 0.9% (100 ml) 9 ML IV (15:27)
[2024-05-27 10:44] VITALS: BP 177/99; PULSE 70
[2024-05-28 10:15] VITALS: BP 194/94; PULSE 71; RESP 16; TEMP 36.4; O2SAT 98
--- NOTE | 2024-05-28 10:19 | PC.NURSE ---
Patient's chest, and neck appeared to be red and warm to the touch. Pt states she has a headache, slight increase in shortness of breath. Shawn Garza PUMP PRESS OPERATOR, was notified. Pt was seen by Azul. Azul requested the patient have her blood pressure rechecked after 10 minuts of rest, if systolic pressure is greater than 150 to give 20mg Lisinopril.
[2024-05-28] MEDS: lisinopril 20 mg Tablet PO (11:00)
[2024-05-28 11:19] VITALS: BP 165/89; PULSE 65; RESP 18; TEMP 35.8; O2SAT 99
[2024-06-09 09:25] LABS: Basophils % 0.4 %; Eosinophils # 0.1 10^3/uL (0.0-0.8); Eosinophils % 1.9 %; Hematocrit 35.8 % (36-47); Lymphocytes # 0.4 10^3/uL (0.8-4.8); Mean Platelet Volume 10.6 fL (7.4-10.4); Monocytes # 0.4 10^3/uL (0.2-0.9); Monocytes % 13.9 %; Neutrophils # 1.81 10^3/uL (1.8-7.7); Nucleated Red Blood Cells % 0 %; Platelet Count 95 10^3/cmm (157-399); Red Blood Count 3.69 10^6/uL (3.85-5.65); Red Cell Distribution Width 14.5 % (12.1-15.1); White Blood Count 2.66 10^3/uL (3.29-11.43)
[2024-06-09 09:54] LABS: Carcinoembryonic Antigen 7.5 ng/mL (0.0-4.7)
[2024-06-09 10:05] LABS: Alanine Aminotransferase 25 U/L (0-33); Albumin Level 4.1 g/dL (3.5-5.2); Alkaline Phosphatase 154 U/L (35-105); Anion Gap 18.3 (5-19); Aspartate Amino Transferase 25 U/L (0-32); Blood Urea Nitrogen 13 mg/dL (8-23); Calcium 9.1 mg/dL (8.5-10.5); Carbon Dioxide 23 mmol/L (22-29); Chloride 98 mmol/L (98-107); Creatinine Clr Calc Pharmacy 56.7704; Globulin 2.4 g/dL (1.3-4.6); Glucose 219 mg/dL (65-115); Osmolality Calculated 287 mOsm/kg (285-295); Potassium 4.3 mmol/L (3.5-5.1); Sodium 135 mmol/L (136-145); Total Bilirubin 0.2 mg/dL (0.15-1.2); Total Protein 6.5 g/dL (6.6-8.7)
[2024-06-09] MEDS: iohexol 350 mg/mL 500 mL Btl (per mL) PO (13:00)
[2024-06-09] MEDS: iohexol 350 mg/mL 500 mL Btl (per mL) IV (13:11)
--- NOTE | 2024-06-09 13:15 | CTR_ITS ---
PROCEDURE INFORMATION: Exam: CT Chest With Contrast; Diagnostic Exam date and time: 06/09/2024 1:01 PM Age: 73 years old Clinical indication: Condition or disease; Other: Rectal cancer; Prior surgery; Surgery date: 6+ months; Surgery type: Heart stents, gb, hyster, lumpectomy; Additional info: Compare to previous; Rectal cancer TECHNIQUE: Imaging protocol: Diagnostic computed tomography of the chest with contrast. Radiation optimization: All CT scans at this facility use at least one of these dose optimization techniques: automated exposure control; mA and/or kV adjustment per patient size (includes targeted exams where dose is matched to clinical indication); or iterative reconstruction. Contrast material: OMNI 350; Contrast volume: 100 ml; Contrast route: INTRAVENOUS (IV); COMPARISON: CT chest abdpel w/*[id number] 01/16/2024 1:17 PM RADIATION DOSE METRICS: Total DLP (mGy-cm): 934.53 FINDINGS: Lungs: Calcified granuloma the right lower lobe. Pleural spaces: Unremarkable. No pneumothorax. No pleural effusion. Heart: Unremarkable. No cardiomegaly. No pericardial effusion. Coronary arteries: Coronary artery calcifications. Lymph nodes: Calcified hilar lymph nodes. Vasculature: Unremarkable. No aortic aneurysm. Bones/joints: Unremarkable. No acute fracture. Soft tissues: Unremarkable. PROCEDURE INFORMATION: Exam: CT Abdomen And Pelvis With Contrast Exam date and time: 06/09/2024 1:01 PM Age: 73 years old Clinical indication: Condition or disease; Other: Rectal cancer; Prior surgery; Surgery date: 6+ months; Surgery type: Heart stents, gb, hyster, lumpectomy; Additional info: Compare to previous; Rectal cancer TECHNIQUE: Imaging protocol: Computed tomography of the abdomen and pelvis with contrast. Radiation optimization: All CT scans at this facility use at least one of these dose optimization techniques: automated exposure control; mA and/or kV adjustment per patient size (includes targeted exams where dose is matched to clinical indication); or iterative reconstruction. Contrast material: OMNI 350; Contrast volume: 100 ml; Contrast route: INTRAVENOUS (IV); COMPARISON: CT chest abdpel w/*[id number] 01/16/2024 1:17 PM RADIATION DOSE METRICS: Total DLP (mGy-cm): 934.53 FINDINGS: Liver: Hepatic steatosis. Gallbladder and biliary ducts: Cholecystectomy. Pancreas: Normal. No ductal dilation. Spleen: Normal. No splenomegaly. Adrenal glands: Normal. No mass. Kidneys and ureters: Bilateral renal cysts. Stomach and bowel: Diverticulosis without evidence of diverticulitis. Appendix: No evidence of appendicitis. Intraperitoneal space: Unremarkable. No free air. No significant fluid collection. Vasculature: Unremarkable. No abdominal aortic aneurysm. Lymph nodes: Unremarkable. No enlarged lymph nodes. Urinary bladder: Unremarkable as visualized. Reproductive: Hysterectomy. Bones/joints: Unremarkable. No acute fracture. Soft tissues: Small calcified nodule adjacent to the right lobe of the liver, possibly a focus of fat necrosis. CT/CT chest abdpel w/*[id number] IMPRESSION: No evidence of metastatic disease. No significant change. IMPRESSION: No significant change. No evidence of metastatic disease. COMMENTS: Consistent with the [employer]'s Incidental Findings Committee white paper (J Am Taniya Radiol 2018): Any incidental renal lesion less than 1 cm or classified as too small to characterize, or any incidental cystic renal lesion characterized as simple-appearing, is likely benign. No follow-up imaging is recommended for these lesions per consensus recommendations based on imaging criteria.
== END 2024-06-11 23:59 | disposition home or self-care (01) ==
LOC: RAD 06-10 00:01 → ONCMED 06-10 09:29
PROVIDERS: Internal Medicine Medical Oncology; PCP Family Medicine; Visit Provider Internal Medicine
DX: Z53.9 Procedure and treatment not carried out, unspecified reason; C20 Malignant neoplasm of rectum
CPT/HCPCS: 36591; 36593; 71260; 74177; 80053; 82378; 85025; 96368; 96375; 96413; 96415; 96416; 96523; 99213; J0640; J1100; J2469; J2997; J3490; J7060; J9190; J9263

== ENCOUNTER 2024-07-08 12:58 | Oncology outpatient (recurring) (ONCR) | payer MEDICARE, MEDICAID, SELFPAY ==
[2024-07-08 13:25] LABS: Basophils % 0.5 %; Eosinophils # 0.1 10^3/uL (0.0-0.8); Eosinophils % 2.7 %; Hematocrit 38.7 % (36-47); Lymphocytes # 0.7 10^3/uL (0.8-4.8); Lymphocytes % 18.5 %; Mean Corpuscular HGB Conc 34.4 g/dL (30-55); Mean Corpuscular Hemoglobin 32.5 pg (27-33); Mean Corpuscular Volume 94.6 fl (85-98); Mean Platelet Volume 9.3 fL (7.4-10.4); Monocytes # 0.4 10^3/uL (0.2-0.9); Neutrophils # 2.49 10^3/uL (1.8-7.7); Nucleated Red Blood Cells % 0 %; Platelet Count 181 10^3/cmm (157-399); Red Blood Count 4.09 10^6/uL (3.85-5.65); Red Cell Distribution Width 13.6 % (12.1-15.1); White Blood Count 3.72 10^3/uL (3.29-11.43)
[2024-07-08 13:26] LABS: Reticulocyte % 2.4 % (0.5-2.0)
[2024-07-08 13:45] LABS: Alanine Aminotransferase 29 U/L (0-33); Albumin Level 4.6 g/dL (3.5-5.2); Alkaline Phosphatase 142 U/L (35-105); Anion Gap 16.4 (5-19); Aspartate Amino Transferase 23 U/L (0-32); Blood Urea Nitrogen 14 mg/dL (8-23); Calcium 9.8 mg/dL (8.5-10.5); Carbon Dioxide 23 mmol/L (22-29); Chloride 101 mmol/L (98-107); Creatinine Clr Calc Pharmacy 55.9231; Ferritin 122 ng/mL (15-150); Globulin 2.4 g/dL (1.3-4.6); Glucose 130 mg/dL (65-115); Iron 96 ug/dL (37-145); Lactate Dehydrogenase 164 U/L (135-214); Osmolality Calculated 284 mOsm/kg (285-295); Potassium 4.4 mmol/L (3.5-5.1); Sodium 136 mmol/L (136-145); Total Bilirubin 0.3 mg/dL (0.15-1.2); Total Iron Binding Capacity 330 mcg/dl; Unsaturated Iron Binding 234 ug/dL (112-347)
[2024-07-08 14:01] LABS: Vitamin B12 678 pg/mL (232-1245)
[2024-07-08 14:15] LABS: Carcinoembryonic Antigen 4.4 ng/mL (0.0-4.7)
[2024-07-08 14:50] LABS: Folate Level > 20.0 ng/mL (4.8-37.3)
== END 2024-07-09 23:59 | disposition home or self-care (01) ==
PROVIDERS: PCP Family Medicine; Visit Provider Internal Medicine
DX: C20 Malignant neoplasm of rectum (principal); Z45.2 Encounter for adjustment and management of vascular access device; M25.572 Pain in left ankle and joints of left foot; G62.9 Polyneuropathy, unspecified; Z95.828 Presence of other vascular implants and grafts; Z87.891 Personal history of nicotine dependence; Z85.3 Personal history of malignant neoplasm of breast; Z92.3 Personal history of irradiation; Z92.21 Personal history of antineoplastic chemotherapy
CPT/HCPCS: 36415; 80053; 82378; 82607; 82728; 82746; 83010; 83540; 83550; 83615; 85025; 85045; 96523; 99213

== ENCOUNTER 2024-07-16 11:51 | Outpatient (CLI) | payer MEDICARE, MEDICAID, SELFPAY ==
--- NOTE | 2024-07-16 11:54 | USCV_ITS ---
Maura Castañeda Age: 74 Gender: F : 1950 Exam Date: 07/16/2024 12:05 Ordering Phys: Hillary Perez Technologist: CT Exam Location: [facility]_ Indication: pre op BP: 158 / 70 HR: 65 Rhythm: Sinus Technical Quality: Adequate MEASUREMENTS (Male / Female) Normal Values 2D ECHO LVOT Diameter 2.0 cm LV Ejection Fraction MOD 4C 64.4 % LV Ejection Fraction MOD 2C 64.7 % LV Ejection Fraction 2C AL 65.1 % LA Diameter 2.9 cm RA Systolic Volume 4C AL 25.3 ml RA Systolic Volume 4C MOD 24.9 ml LA Sys Volume AL 37.3 cm cubed LA Sys Volume Index AL 20.2 cm cubed/m squared Aorta at Sinotubular Diameter 2.2 cm IVC Diameter 1.9 cm M-MODE LA Ao Ratio MM 1.6 AV Cusp Separation MM 0.9 cm DOPPLER AV Peak Velocity 180.0 cm/s LVOT Peak Velocity 144.0 cm/s AV Area Cont Eq vti 2.7 cm squared AV Area Cont Eq pk 2.6 cm squared MV Peak Velocity 174.0 cm/s MV Area PHT 2.9 cm squared Mitral E to A Ratio 0.8 TR Peak Velocity 279.0 cm/s TR Peak Gradient 31.1 mmHg TV Peak E Velocity 63.0 cm/s PV Peak Velocity 93.0 cm/s FINDINGS Left Ventricle Left ventricle is normal in size. LV systolic function is normal with EF of 60 to 65%. No regional wall motion abnormalities are seen. Grade 1 diastolic dysfunction. Right Ventricle Normal in size and function Right Atrium Normal in size Left Atrium Normal in size Mitral Valve Structurally normal mitral valve. Mild mitral regurgitation. Aortic Valve Grossly normal. No significant stenosi. Mild aortic regurgitation. Tricuspid Valve Mild tricuspid regurgitation. Pulmonary artery systolic pressure is normal. Pulmonic Valve Not well visualized Pericardium Normal Aorta Ascending aorta is mildly dilated with diameter of 3.78 cm. IVC Appears to be normal CONCLUSIONS LV systolic function is normal with EF of 60-65%. Grade 1 diastolic dysfunction. Mild mitral regurgitation. Mild aortic regurgitation. Mild tricuspid regurgitation. Ascending aorta is mildly dilated with diameter of 3.78 cm. No comparison studies are available. Woody Toney MD (Electronically Signed) Final Date: 17 July 2024 11:57 S
== END 2024-07-16 11:52 | disposition home or self-care (01) ==
PROVIDERS: PCP Family Medicine; Visit Provider Nurse Practitioner Family
DX: I25.10 Atherosclerotic heart disease of native coronary artery without angina pectoris (principal); I10 Essential (primary) hypertension; I21.9 Acute myocardial infarction, unspecified; R01.1 Cardiac murmur, unspecified; R93.1 Abnormal findings on diagnostic imaging of heart and coronary circulation; I34.0 Nonrheumatic mitral (valve) insufficiency; I35.1 Nonrheumatic aortic (valve) insufficiency; I07.1 Rheumatic tricuspid insufficiency; I77.810 Thoracic aortic ectasia
CPT/HCPCS: 93306

== ENCOUNTER 2024-08-19 12:59 | Oncology outpatient (recurring) (ONCR) | payer MEDICARE, MEDICAID, SELFPAY ==
[2024-08-19 14:13] LABS: Basophils % 0.6 %; Eosinophils # 0.1 10^3/uL (0.0-0.8); Eosinophils % 2.2 %; Hematocrit 39.4 % (36-47); Lymphocytes # 0.8 10^3/uL (0.8-4.8); Lymphocytes % 16.8 %; Mean Corpuscular HGB Conc 33.5 g/dL (30-55); Mean Corpuscular Hemoglobin 31.4 pg (27-33); Mean Corpuscular Volume 93.8 fl (85-98); Monocytes # 0.4 10^3/uL (0.2-0.9); Monocytes % 7.5 %; Neutrophils # 3.36 10^3/uL (1.8-7.7); Neutrophils % 72.5 %; Nucleated Red Blood Cells % 0 %; Platelet Count 175 10^3/cmm (157-399); Red Cell Distribution Width 12.9 % (12.1-15.1); White Blood Count 4.64 10^3/uL (3.29-11.43)
[2024-08-19 14:19] LABS: Reticulocyte % 2.2 % (0.5-2.0)
[2024-08-19 14:28] LABS: Alanine Aminotransferase 33 U/L (0-33); Albumin Level 4.6 g/dL (3.5-5.2); Alkaline Phosphatase 124 U/L (35-105); Blood Urea Nitrogen 19 mg/dL (8-23); Calcium 9.6 mg/dL (8.5-10.5); Carbon Dioxide 22 mmol/L (22-29); Chloride 103 mmol/L (98-107); Ferritin 124 ng/mL (15-150); Globulin 2.5 g/dL (1.3-4.6); Glucose 132 mg/dL (65-115); Iron 130 ug/dL (37-145); Osmolality Calculated 288 mOsm/kg (285-295); Sodium 137 mmol/L (136-145); Total Bilirubin 0.4 mg/dL (0.15-1.2); Total Protein 7.1 g/dL (6.6-8.7)
[2024-08-19 14:33] LABS: Anion Gap 16.7 (5-19); Percent Saturation 41.4 % (20-50); Potassium 4.7 mmol/L (3.5-5.1); Total Iron Binding Capacity 314 mcg/dl; Unsaturated Iron Binding 184 ug/dL (112-347)
[2024-08-19 14:34] LABS: Aspartate Amino Transferase 26 U/L (0-32); Lactate Dehydrogenase 192 U/L (135-214)
[2024-08-19 14:55] LABS: Carcinoembryonic Antigen 2.9 ng/mL (0.0-4.7)
[2024-08-19 15:18] LABS: Folate Level > 20.0 ng/mL (4.8-37.3)
== END 2024-09-08 23:59 | disposition home or self-care (01) ==
PROVIDERS: PCP Family Medicine; Visit Provider Internal Medicine
DX: C20 Malignant neoplasm of rectum (principal); Z85.3 Personal history of malignant neoplasm of breast; M25.572 Pain in left ankle and joints of left foot; D64.9 Anemia, unspecified; T85.698A Other mechanical complication of other specified internal prosthetic devices, implants and grafts, initial encounter; G62.9 Polyneuropathy, unspecified; Z87.891 Personal history of nicotine dependence; Z92.3 Personal history of irradiation; Z92.21 Personal history of antineoplastic chemotherapy; Z95.828 Presence of other vascular implants and grafts
CPT/HCPCS: 36591; 80053; 82378; 82728; 82746; 83010; 83540; 83550; 83615; 85025; 85045; 99213

== ENCOUNTER 2024-11-03 10:30 | Oncology outpatient (recurring) (ONCR) | payer MEDICARE, MEDICAID, SELFPAY ==
[2024-10-20] MEDS: alteplase 1 mg/mL SDV 2 mL 2 MG INTRACATH (12:42)
[2024-10-20 12:56] LABS: Basophils % 0.7 %; Eosinophils # 0.1 10^3/uL (0.0-0.8); Eosinophils % 2.7 %; Hematocrit 33.5 % (36-47); Lymphocytes # 0.8 10^3/uL (0.8-4.8); Lymphocytes % 17.6 %; Mean Corpuscular HGB Conc 32.5 g/dL (30-55); Mean Corpuscular Hemoglobin 31.6 pg (27-33); Mean Corpuscular Volume 97.1 fl (85-98); Mean Platelet Volume 9.2 fL (7.4-10.4); Monocytes # 0.3 10^3/uL (0.2-0.9); Monocytes % 7.5 %; Neutrophils # 3.11 10^3/uL (1.8-7.7); Nucleated Red Blood Cells % 0 %; Platelet Count 255 10^3/cmm (157-399); Red Blood Count 3.45 10^6/uL (3.85-5.65); Red Cell Distribution Width 13.8 % (12.1-15.1); White Blood Count 4.38 10^3/uL (3.29-11.43)
[2024-10-20 13:17] LABS: Alanine Aminotransferase 22 U/L (0-33); Albumin Level 4.3 g/dL (3.5-5.2); Alkaline Phosphatase 145 U/L (35-105); Anion Gap 16.3 (5-19); Aspartate Amino Transferase 21 U/L (0-32); Blood Urea Nitrogen 14 mg/dL (8-23); Calcium 9.3 mg/dL (8.5-10.5); Carbon Dioxide 22 mmol/L (22-29); Chloride 102 mmol/L (98-107); Globulin 2.8 g/dL (1.3-4.6); Glucose 154 mg/dL (65-115); Osmolality Calculated 286 mOsm/kg (285-295); Potassium 4.3 mmol/L (3.5-5.1); Sodium 136 mmol/L (136-145); Total Bilirubin 0.2 mg/dL (0.15-1.2); Total Protein 7.1 g/dL (6.6-8.7)
== END 2024-11-08 23:59 | disposition home or self-care (01) ==
PROVIDERS: PCP Family Medicine; Visit Provider Internal Medicine
DX: Z53.9 Procedure and treatment not carried out, unspecified reason (principal)
CPT/HCPCS: 36415; 80053; 85025; 99213; J2997

== ENCOUNTER → 2024-11-16 12:58 | Outpatient (BNVA) | payer MEDICARE, SELFPAY | PROVIDERS: PCP Family Medicine; Visit Provider Internal Medicine Cardiovascular Disease | DX: I25.10 Atherosclerotic heart disease of native coronary artery without angina pectoris (principal); R00.0 Tachycardia, unspecified; I10 Essential (primary) hypertension; Z79.82 Long term (current) use of aspirin; Z95.5 Presence of coronary angioplasty implant and graft; Z87.891 Personal history of nicotine dependence; I25.2 Old myocardial infarction | CPT/HCPCS: 99214 ==

== ENCOUNTER 2024-12-08 11:30 | Oncology outpatient (recurring) (ONCR) | payer MEDICARE, SELFPAY ==
[2024-11-10 14:14] LABS: Hematocrit 33.2 % (36-47); Hemoglobin 11.00 g/dL (11.27-16.99); Mean Corpuscular HGB Conc 33.1 g/dL (30-55); Mean Corpuscular Hemoglobin 31.6 pg (27-33); Mean Corpuscular Volume 95.4 fl (85-98); Nucleated Red Blood Cells % 0 %; Platelet Count 194 10^3/cmm (157-399); Red Blood Count 3.48 10^6/uL (3.85-5.65); White Blood Count 4.19 10^3/uL (3.29-11.43)
[2024-11-10 14:40] LABS: Carcinoembryonic Antigen 2.6 ng/mL (0.0-4.7)
[2024-11-10 14:51] LABS: Alanine Aminotransferase 26 U/L (0-33); Albumin Level 4.3 g/dL (3.5-5.2); Alkaline Phosphatase 121 U/L (35-105); Anion Gap 17.0 (5-19); Aspartate Amino Transferase 21 U/L (0-32); Blood Urea Nitrogen 12 mg/dL (8-23); Calcium 9.3 mg/dL (8.5-10.5); Carbon Dioxide 24 mmol/L (22-29); Chloride 101 mmol/L (98-107); Creatinine Clr Calc Pharmacy 54.5097; Globulin 2.5 g/dL (1.3-4.6); Glucose 120 mg/dL (65-115); Osmolality Calculated 287 mOsm/kg (285-295); Potassium 4.0 mmol/L (3.5-5.1); Sodium 138 mmol/L (136-145); Total Protein 6.8 g/dL (6.6-8.7)
== END 2024-12-09 23:59 | disposition home or self-care (01) ==
PROVIDERS: Nurse Practitioner Family; PCP Family Medicine; Visit Provider Internal Medicine
DX: Z53.9 Procedure and treatment not carried out, unspecified reason; Z45.2 Encounter for adjustment and management of vascular access device; Z95.828 Presence of other vascular implants and grafts
CPT/HCPCS: 36591; 80053; 82378; 85025; 96523; 99213

== ENCOUNTER 2025-01-05 13:08 | Oncology outpatient (recurring) (ONCR) | payer MEDICARE, SELFPAY ==
[2025-01-05] MEDS: alteplase 1 mg/mL SDV 2 mL 2 MG INTRACATH (13:33)
== END 2025-01-09 23:59 | disposition home or self-care (01) ==
LOC: ONCMED 13:09
PROVIDERS: PCP Family Medicine; Visit Provider Internal Medicine
DX: Z45.2 Encounter for adjustment and management of vascular access device (principal); Z95.828 Presence of other vascular implants and grafts
CPT/HCPCS: 96523; J2997

== ENCOUNTER 2025-01-19 11:04 | Outpatient (CLI) | payer MEDICARE, SELFPAY ==
--- NOTE | 2025-01-19 11:15 | MM_ITS ---
WS: [id number] BILATERAL 3D TOMOSYNTHESIS DIGITAL DIAGNOSTIC MAMMOGRAPHY WITH CAD CLINICAL INFORMATION: PERSONAL HX OF BREAST CANCER HISTORY: History of RIGHT breast cancer COMPARISON: 2023 TECHNIQUE: Bilateral CC, MLO, and ML views. FINDINGS: Scattered fibroglandular densities bilaterally. Prior postoperative changes lumpectomy RIGHT breast with treatment related changes stable compared to previous. Parenchymal fibrosis RIGHT breast with volume loss. Similar-appearing dystrophic calcifications RIGHT breast. Incidental benign calcifications LEFT breast. No suspicious focal mass, asymmetry, calcifications, or architectural distortion. No evidence of malignancy. MM/MM diag tomosynthesis [id number] IMPRESSION: DENSITY: There are scattered areas of fibroglandular density. BI-RADS: 2 - Benign. FOLLOW UP: 1 Year Follow-up Recommend return to annual diagnostic mammography.
== END 2025-01-19 11:05 | disposition home or self-care (01) ==
LOC: RAD 11:09
PROVIDERS: PCP Family Medicine; Visit Provider Family Medicine
DX: Z85.3 Personal history of malignant neoplasm of breast (principal); Z78.9 Other specified health status
CPT/HCPCS: 77062; G0279

== ENCOUNTER 2025-01-19 11:52 | Emergency (ER) | payer MEDICARE, MEDICAID, SELFPAY ==
[2025-01-19 11:55] VITALS: BP 117/80; PULSE 98; RESP 18; TEMP 36.7; O2SAT 97
--- NOTE | 2025-01-19 11:56 | ECG_ITS ---
[facility] Test Date: 2025-01-19 Pat Name: Maura Castañeda Department: Room: Gender: Female Cataract Lens Generator: : 1950 Requested By: Mckenzie Hill Order Number: [id number] Marc MD: Tito Cardenas M.D. Measurements Intervals Lyle Rate: 99 P: 62 IN: 134 QRS: 105 QRSD: 82 T: 78 QT: 354 QTc: 455 Interpretive Statements SINUS RHYTHM INFERIOR INFARCT, AGE INDETERMINATE ST ELEVATION IN THE INFERIOR LEADS, POSSIBLE INJURY Compared to ECG 05/25/2024 13:52:44, Tracing artifact decreased Electronically Signed On 01-19-2025 22:09:19 CDT by Tito Cardenas M.D. [id number]
--- NOTE | 2025-01-19 11:56 | CT_ITS ---
WS: [id number] CT HEAD TECHNIQUE: Noncontrast CT of the head obtained from the skullbase to the vertex. CLINICAL INFORMATION: Encephalopathy, altered mental status COMPARISON: 2023 DLP: 1036.[address] scans at [facility] use at least one of these dose optimization techniques: automated exposure control; mA and/or kV adjustment per patient size (includes targeted exams where dose is matched to clinical indication); or iterative reconstruction. FINDINGS: No evidence of intracranial hemorrhage or mass effect. Ventricular system and basal cisterns are patent. Moderate small vessel changes with moderate parenchymal volume loss. No extra-axial fluid collections. No evidence of mass or mass effect. Vascular calcification. Paranasal sinuses and mastoid air cells are well aerated. .Normal visualized soft tissues. CT/CT head wo con* [id number] IMPRESSION: 1. No evidence of intracranial hemorrhage or mass effect. 2. Vascular calcification. 3. Moderate small vessel changes with moderate parenchymal volume loss. 4. No acute intracranial findings.
--- NOTE | 2025-01-19 11:59 | W.ED.WEAKNES ---
HPI - Weakness General: Chief complaint: Weakness Stated complaint: rapid response Time Seen by Provider: 01/19/25 11:53 History of Present Illness: 74-year-old female with a history of diabetes, hypertension, rheumatoid arthritis, recurrent urinary tract infections, COPD, hyperlipidemia, hypertension and coronary artery disease who presents to the emergency room on a rapid response from mammography. Reports she had become very somnolent and may have lost consciousness briefly. Rapid response team reports that her blood pressure was low when they got there. She is very somnolent but will wake up and communicate appropriately. She says she was feeling fine this morning. Has not had any nausea or vomiting. No fevers. No chest pain. No abdominal pain. Right now she says she feels okay other than she keeps falling asleep Related Data Home Medications ?Medication ?Instructions ?Recorded ?Confirmed albuterol sulfate 90 mcg/actuation 2 puff inhalation Q6H PRN 09/28/19 11/16/24 aerosol inhaler Shortness Of Breath aspirin 81 mg tablet,delayed 81 mg PO DAILY 09/28/19 11/16/24 release (Aspir-) atorvastatin 80 mg tablet 80 mg PO DAILY 09/28/19 11/16/24 famotidine 40 mg tablet 40 mg PO DAILY 09/28/19 11/16/24 ferrous sulfate 325 mg (65 mg 325 mg PO .WEEKLY PRN .low iron 07/30/21 11/16/24 iron) tablet metformin 500 mg tablet 500 mg PO DAILY 03/26/23 11/16/24 lorazepam 1 mg tablet (Ativan) 0.5 - 1 mg PO Q6H PRN Severe Nausea 01/14/24 11/16/24 tamsulosin 0.4 mg capsule 0.4 mg PO DAILY 01/14/24 11/16/24 docusate sodium 100 mg capsule 100 mg PO BID PRN 05/25/24 11/16/24 (Colace) metoclopramide HCl 10 mg tablet mg PO 10/20/24 11/10/24 tramadol 50 mg tablet mg PO 11/10/24 11/16/24 gabapentin 800 mg tablet mg PO TID 11/16/24 11/16/24 Previous Rx's ?Medication ?Instructions ?Recorded CAM boot #1 ea 07/30/22 nitroglycerin 0.4 mg sublingual 0.4 mg sublingual Q5M PRN chest 11/06/23 tablet (Nitrostat) pain #60 tabs prochlorperazine maleate 10 mg 10 mg PO Q6H PRN nausea and 01/27/24 tablet (Compazine) vomiting #30 tabs lisinopril 40 mg tablet 40 mg PO DAILY #90 tabs 07/15/24 metoprolol succinate 50 mg 50 mg PO DAILY #90 tabs 01/04/25 tablet,extended release 24 hr Allergies Allergy/AdvReac Type Severity Reaction Status Date / Time No Known Allergies Allergy Verified 11/16/24 13:44 Review of Systems Narrative: Constitutional symptoms: Negative except as documented in HPI. Skin symptoms: Negative except as documented in HPI. Eye symptoms: Negative except as documented in HPI. ENMT symptoms: Negative except as documented in HPI. Respiratory symptoms: Negative except as documented in HPI. Cardiovascular symptoms: Negative except as documented in HPI. Gastrointestinal symptoms: Negative except as documented in HPI. Genitourinary symptoms: Negative except as documented in HPI. Musculoskeletal symptoms: Negative except as documented in HPI. Neurologic symptoms: Negative except as documented in HPI. Psychiatric symptoms: Negative except as documented in HPI. Endocrine symptoms: Negative except as documented in HPI. PFSH ED PFSH: Medical History (Updated 01/19/25 @ 13:18 by Mckenzie Maria MD) Port-A-Cath in place History of colon polyps GERD (gastroesophageal reflux disease) Meniere disease Rheumatoid arthritis Lateral cystocele Acute cystitis with hematuria Gross hematuria Recurrent UTI Incomplete bladder emptying Tobacco abuse COPD (chronic obstructive pulmonary disease) Hyperlipidemia HTN (hypertension) Myocardial infarction ASHD (arteriosclerotic heart disease) Surgical History S/P tonsillectomy Status post tubal ligation S/P hysterectomy S/P lumpectomy of breast S/P cholecystectomy S/P PTCA (percutaneous transluminal coronary angioplasty) Social History Smoking and tobacco/nicotine status: former use of tobacco/nicotine Quit status (tobacco/nicotine): has quit using Year quit tobacco: 2011 Former quit date comment: tobacco use 40+ years Alcohol intake: unknown Substance/Drug Use: unknown Adopted: No Caregiver/support person: No Lives independently: No Household members: spouse Marital status: Current occupational status: retired Physical Exam Narrative: EXAM NARRATIVE: General: Somnolent but arousable Skin: Warm, dry Head: Normocephalic, atraumatic. Neck: Supple, trachea midline. Eye: Extraocular movements are intact. Ears, nose, mouth and throat: Dry oral mucosa. Cardiovascular: Regular rate and rhythm, Normal peripheral perfusion. Respiratory: Lungs are clear to auscultation, respirations are non-labored, breath sounds are equal, Symmetrical chest wall expansion. Gastrointestinal: Soft, Nontender, Non distended Musculoskeletal: no deformity. Neurological: Somnolent but oriented when awakened, No obvious focal neurological deficit observed. Psychiatric: unable to assess. Course Vital Signs: Vital signs: Vital Signs Temperature 98.1 F 01/19/25 11:55 Pulse Rate 88 01/19/25 12:30 Respiratory Rate 17 01/19/25 12:05 Blood Pressure 147/81 01/19/25 12:30 Pulse Oximetry 94 01/19/25 12:30 Oxygen Delivery Me thod Room Air 01/19/25 12:30 MDM - Weakness Medical Decision Making Medical decision making: Differential diagnosis for patient presenting with generalized weakness including but not limited to and based on the above HPI, review of systems and physical exam: Sepsis. Dehydration. Renal failure. Electrolyte abnormalities. Anemia. Congestive heart failure. Hypotension. Coronary syndrome. Hepatitis. Cirrhosis. Infections such as pneumonia, urinary tract infection, Tick bourne illness, Cellulitis, Viral infections including influenza and Covid-19. Workup: labwork and lab/exam driven imaging ordered to evaluate, rule in and rule out above pathologies. EKG: Time 1155. Rate 99. Normal sinus rhythm, No ST-T changes, no ectopy, normal CO & QRS intervals, This was reviewed and interpreted by myself the ER physician at 1201 CT head: No acute intracranial process. no intracranial hemorrhage, no evidence of infarct. no evidence of acute fracture.This was reviewed and interpreted by myself the ER physician. Chest x-ray: No acute process. No infiltrate. No pneumothorax. This was reviewed and interpreted by myself the emergency room physician. I also reviewed the radiology report. Lab Review: Laboratory results were reviewed and interpreted by myself the emergency room physician. No leukocytosis. No anemia. Mild renal insufficiency. She is slightly over her baseline and her urine appears a bit concentrated so I think she was dehydrated and her blood pressure dropped secondary to this. There are no signs of infection. I reviewed the patient's medical record. 74-year-old female with a history of diabetes, hypertension, rheumatoid arthritis, recurrent urinary tract infections, COPD, hyperlipidemia, hypertension and coronary artery disease Reexamination: Patient's blood pressure had improved slightly by the time she got here and after fluids she is now 147/81. She had not had anything to eat or drink today and her renal function appears a little bit up so I think she was a bit dehydrated. Urinalysis showed some concentration of her urine as well. Assessment and plan: Syncope Dehydration ? Normal saline bolus. Patient has improved completely. - Discharged home - Discussed plan with patient. Answered any questions. - Evaluation and treatment of this problem were appropriate in the emergency setting. Lab Data 01/19/25 12:05 01/19/25 12:[address] 01/19/25 11:56 IMPRESSION: 1. No evidence of intracranial hemorrhage or mass effect. 2. Vascular calcification. 3. Moderate small vessel changes with moderate parenchymal volume loss. 4. No acute intracranial findings. Chest X-Ray 01/19/25 12:27 Impression: Atherosclerosis. Laboratory Results WBC 5.39 10^3/uL (3.29-11.43) 01/19/25 12:05 RBC 4.36 10^6/uL (3.85-5.65) 01/19/25 12:05 Hgb 13.40 g/dL (11.27-16.99) 01/19/25 12:05 Hct 40.1 % (36-47) 01/19/25 12:05 MCV 92.0 fl (85-98) 01/19/25 12:05 MCH 30.7 pg (27-33) 01/19/25 12:05 MCHC 33.4 g/dL (30-55) 01/19/25 12:05 RDW 13.1 % (12.1-15.1) 01/19/25 12:05 Plt Count 210 10^3/cmm (157-399) 01/19/25 12:05 MPV 9.6 fL (7.4-10.4) 01/19/25 12:05 Neut % (Auto) 67.4 % 01/19/25 12:05 Lymph % (Auto) 21.0 % 01/19/25 12:05 [place] % (Auto) 7.8 % 01/19/25 12:05 Eos % (Auto) 2.8 % 01/19/25 12:05 Baso % (Auto) 0.6 % 01/19/25 12:05 Neut # (Auto) 3.64 10^3/uL (1.8-7.7) 01/19/25 12:05 Lymph # (Auto) 1.1 10^3/uL (0.8-4.8) 01/19/25 12:05 [place] # (Auto) 0.4 10^3/uL (0.2-0.9) 01/19/25 12:05 Eos # (Auto) 0.2 10^3/uL (0.0-0.8) 01/19/25 12:05 Baso # (Auto) 0.0 10^3/uL (0.0-0.1) 01/19/25 12:05 Nucleated RBC % (auto) 0 % 01/19/25 12:05 Nucleated RBCs # 0.0 /100WBC 01/19/25 12:05 Sodium 138 mmol/L (136-145) 01/19/25 12:05 Potassium 4.1 mmol/L (3.5-5.1) 01/19/25 12:05 Chloride 100 mmol/L (98-107) 01/19/25 12:05 Carbon Dioxide 24 mmol/L (22-29) 01/19/25 12:05 Anion Gap 18.1 (5-19) 01/19/25 12:05 BUN 22 mg/dL (8-23) 01/19/25 12:05 Creatinine 1.0 mg/dL (0.5-0.9) H 01/19/25 12:05 GFR Calculation Not Reportable 01/19/25 12:05 Glucose 153 mg/dL (65-115) H 01/19/25 12:05 POC Glucose 172 mg/dL (70-110) H 01/19/25 11:55 Calculated Osmolality 292 mOsm/kg (285-295) 01/19/25 12:05 Lactic Acid 2.2 mmol/L (0.5-2.2) 01/19/25 12:05 Calcium 10.4 mg/dL (8.5-10.5) 01/19/25 12:05 Total Bilirubin 0.2 mg/dL (0.15-1.2) 01/19/25 12:05 AST 24 U/L (0-32) 01/19/25 12:05 ALT 30 U/L (0-33) 01/19/25 12:05 Alkaline Phosphatase 117 U/L (35-105) H 01/19/25 12:05 Troponin T Baseline 9 ng/L (0-10) 01/19/25 12:05 Total Protein 7.1 g/dL (6.6-8.7) 01/19/25 12:05 Albumin 4.8 g/dL (3.5-5.2) 01/19/25 12:05 Globulin 2.3 g/dL (1.3-4.6) 01/19/25 12:05 Urine Color Yellow (Yellow) 01/19/25 12:45 Urine Appearance Clear (CLEAR) 01/19/25 12:45 Urine pH 6.0 (5-7) 01/19/25 12:45 Ur Specific [place] 1.017 (1.005-1.030) 01/19/25 12:45 Urine Protein Negative (Negative) 01/19/25 12:45 Urine Glucose (UA) Negative (Normal) 01/19/25 12:45 Urine Ketones Negative (Negative) 01/19/25 12:45 Urine Blood Negative (Negative) 01/19/25 12:45 Urine Nitrate Negative (Negative) 01/19/25 12:45 Urine Bilirubin Negative (Negative) 01/19/25 12:45 Urine Urobilinogen 0.2 mg/dL (Negative) 01/19/25 12:45 Ur Leukocyte Esterase Negative (Negative) 01/19/25 12:45 Urine RBC 0-2 /hpf (0-2) 01/19/25 12:45 Urine WBC 0-5 /hpf (0-5) 01/19/25 12:45 Ur Squamous Epith Cells 0-5 /hpf (0-5) 01/19/25 12:45 Amorphous Sediment Not Reportable 01/19/25 12:45 Urine Bacteria None seen /hpf (NONE) 01/19/25 12:45 Hyaline Casts 7.42 /lpf 01/19/25 12:45 All radiology interpretation(s) finalized by discharge Discharge Plan Discharge Patient Disposition: Home Clinical Impression: Syncope, Dehydration Condition: Stable Prescriptions: No Action albuterol sulfate 90 mcg/actuation HFA aerosol inhaler 2 puff INHALATION Q6H PRN (Reason: Shortness Of Breath) famotidine 40 mg tablet 40 mg PO DAILY atorvastatin 80 mg tablet 80 mg PO DAILY aspirin [Aspir-81] 81 mg tablet,delayed release (DR/EC) 81 mg PO DAILY ferrous sulfate 325 mg (65 mg iron) tablet 325 mg PO .WEEKLY PRN (Reason: .low iron) Colace 100 mg capsule 100 mg PO BID PRN (DME) CAM boot See Rx Instructions .Route .MEDSUPPLY Qty: 1 0RF Rx Instructions: As directed nitroglycerin [Nitrostat] 0.4 mg tablet, sublingual 0.4 mg SUBLINGUAL Q5M PRN (Reason: chest pain) Qty: 60 2RF Rx Instructions: do not exceed 3 doses per episode metoclopramide HCl 10 mg tablet PO tramadol 50 mg tablet PO gabapentin 800 mg tablet PO TID prochlorperazine maleate [Compazine] 10 mg tablet 10 mg PO Q6H PRN (Reason: nausea and vomiting) Qty: 30 3RF lisinopril 40 mg tablet 40 mg PO DAILY Qty: 90 3RF metoprolol succinate 50 mg tablet extended release 24 hr 50 mg PO DAILY Qty: 90 3RF metformin 500 mg tablet 500 mg PO DAILY tamsulosin 0.4 mg capsule 0.4 mg PO DAILY Rx Instructions: TAKE 1 CAPSULE DAILY lorazepam [Ativan] 1 mg tablet 0.5 - 1 mg PO Q6H PRN (Reason: Severe Nausea) Discharge Orders: Discharge ED (Routine); Ordered 01/19/25 Ordered By: Mckenzie Maria Referrals: Tish Puente DO [Primary Care Provider, BENEFITS OFFICER] Discharge Diet: Usual diet Discharge Activity: Increase activity as tolerated Patient Instructions: Near Syncope (ED), Opioid Safety, Pain Management, Patient Portal & Bunny Instructions Activity Restrictions/Additional Instructions: Thank you for choosing [facility] for your healthcare needs today. You have been screened and evaluated and felt safe for discharge. Health conditions do change or evolve sometimes and as such it is important that you follow up with your Primary Doctor to be re checked, 3-5 days is a general good time frame for follow up. You are always welcome to return to the ED for re assessment if your symptoms are worsening or you have new concerns Print Language: Slovenian Coding Level of Care Code ED Cigarette Machine Filler for Ronnie Gudino
[2025-01-19 12:05] VITALS: PULSE 93; RESP 17; O2SAT 96
--- OUTSIDE RECORDS SUMMARY | 2025-01-19 12:08 | XMS_ITS | Clinical Summary ---
Author Organization [facility] Address [address] [place] [address] Phone Care Team Providers Care Nursery [employer] Teacher Name Role Phone Valencia Pope Primary Care Provider [phone] Allergies No known active allergies Medications oxybutynin chloride (DITROPAN) 5 mg Oral tablet Take 5 mg by mouth 2 times daily. Active multivitamin (DAILY-LORENE) Oral tablet Take 1 Tab by mouth daily. Active omega-3 fatty acids-fish oil 300-1,000 mg Oral Cap Take 1 Cap by mouth 3 times daily. Active atorvastatin (LIPITOR) 80 mg Oral tablet Take 1 Tab by mouth daily. 30 Tab 12 3 Active famotidine (PEPCID) 20 mg Oral tablet Take 1 Tab by mouth 2 times daily. 60 Tab 12 3 Active prasugrel (EFFIENT) 10 mg Oral Tab Take 1 Tab by mouth daily. 30 Tab 12 3 Active nitroglycerin (NITROSTAT) 0.[address] 1 Tab under tongue every 5 minutes as needed for Chest Pain (Not to exceed 3 doses, notify physician if chest pain not relieved, hold if systolic BP less than or equal to 100). 20 Tab 2 3 Active LISINOPRIL ORALIndications :HTN (hypertension), Hyperlipidemia, NSTEMI (non-ST elevated myocardial infarction) (CMS/HCC) Take by mouth daily. Active aspirin (JADON) 81 mg Oral TabIndications: HTN (hypertension), Hyperlipidemia, NSTEMI (non-ST elevated myocardial infarction) (CMS/HCC) Take by mouth daily. Active SULFAMETHOXAZOL E-TRIMETHOPRIM ORALIndications :HTN (hypertension), Hyperlipidemia, NSTEMI (non-ST elevated myocardial infarction) (CMS/HCC) Take by mouth 2 times daily. Active MECLIZINE HCL (MECLIZINE ORAL)Indication s:HTN (hypertension), Hyperlipidemia, NSTEMI (non-ST elevated myocardial infarction) (CMS/HCC) Take by mouth 1 time daily as needed. Active Active Problems Problem Noted Date Diagnosed Date Anemia 07/24/2012 Renal insufficiency 07/24/2012 NSTEMI (non-ST elevated myocardial infarction) 0 07/23/2012 HTN (hypertension) Diabetes mellitus Hyperlipidemia Immunizations Immunization Administration Dates Next Due (PNEUMOVAX 23)(50 YRS UP) PN EUMOCOCCAL POLYSACCHARIDE (PPV23) 0.5 ML, IM 08/01/2012 Influenza Vaccine Split 3+ Yrs PF IM 08/01/2012 Social History Tobacco Use Types Packs/Day Years Used Date Smoking Tobacco: Former Cigarettes Q uit: 08/11/2010 Smokeless Tobacco: Never Alcohol Use Standard Drinks/Week Comments No 0 (1 standard drink = 0.6 oz pur e alcohol) Comments No Sex and Gender Information Value Date Recorded Sex Assigned at Not on file Legal Sex Female 8:08 PM CDT Gender Identity Not on file Sexual Orientation Not on file Occupation Industry Job Start Date Job End Date Not on file Not on file Not on file Not on file Last Filed Vital Signs Vital Sign Reading Time Taken Comments Blood Pressure 106/62 08/11/2012 1:21 PM CDT Pulse 80 08/11/2012 1:21 PM CDT Temperature 37.2 C (98.9 F) 08/01/2012 11:00 AM CDT Respiratory Rate 18 08/01/2012 11:00 AM CDT Oxygen Saturation 99% 08/01/2012 11:00 AM CDT Inhaled Oxygen Concentration - - Weight 66.7 kg (147 lb) 08/11/2012 1:21 PM CDT Height 152.4 cm (5') 08/11/2012 1:21 PM CDT Body Mass Index 28.71 08/11/2012 1:21 PM CDT Plan of Treatment Health Maintenance Due Date Last Done Comments DIABETES ANNUAL FOOT EXAM 1968 DIABETES ANNUAL RETINAL EXAM 1968 DIABETES MICROALBUMIN ANNUAL SCREEN 1968 DTAP/TDAP/TD VACCINES (1 - Tdap) 1969 BREAST CANCER SCREENING 1990 COLORECTAL SCREENING 1995 Colorectal Cancer Screening 1995 FIT-DNA Q 3 years 1995 FIT/FOBT Q 1 year 1995 Flex Sig/CT Colonography Q 5 years 1995 ZOSTER VACCINE (1 of 2) 2000 DIABETES HBA1C Q 6 MONTHS 01/24/2013 07/24/2012 LDL CHOLESTEROL ANNUAL 07/24/2013 07/24/2012 PNEUMOCOCCAL VACCINE 50+ YEARS (2 of 2 - PCV) 08/02/19 14 08/01/2012 OSTEOPOROSIS SCREENING 2015 INFLUENZA VACCINE (#1) 2024 08/01/2012 RSV VACCINE (60+ or ) (1 - 1-dose 75+ series) 2025 Procedures Procedure Name Priority Date/Time Associated Diagnosis Comments LIPID PANEL Add on 07/24/2012 8:43 AM CDT HEMOGLOBIN A1C Add on 07/24/2012 3:10 AM CDT from Last 3 Months or Most Recently Relevant to Health Maintenance Results * (ABNORMAL) LIPID PANEL (07/24/2012 8:43 AM CDT) CHOLESTEROL 182 0 - 200 mg/dL [facility] TRIGLYCERIDE 94 0 - 150 mg/dL [facility] HDL 33(L) 40 - 59 mg/dL [facility] LDL CALCULATED 130(H) 0 - 100 mg/dL [facility] Comment: Calculated LDL Reference: <100 Optimal 100-129 Near Optimal 130-159 Borderline High >160 High Risk CALCULATED TOTAL CHOLESTEROL TO HDL RATIO 5.52(H) 3.27 - 4.44 [facility] Blood specimen (specimen) 07/24/2012 8:43 AM CDT 07/24/2012 8:46 AM CDT us Castro Courtney MD CHEMISTRY ORDERABLES Final Resu lt INTERFACE SYSTEM Refer to clinic/hospital department [facility] CLIA# [id number] [address] [place] [id number] * HEMOGLOBIN A1C (07/24/2012 3:10 AM CDT) HEMOGLOBIN A1C 5.6 4.0 - 6.0 %A1C [facility] Comment: This test was performed on a Slice VARIANT II Instrument using HPLC methodology. Blood specimen (specimen) 07/24/2012 3:10 AM CDT 07/24/2012 8:33 AM CDT Narrative INTERFACE SYSTEM - 07/24/2012 1:13 PM CDT Use AM labs us Castro Courtney MD CHEMISTRY ORDERABLES Final Resu lt INTERFACE SYSTEM Refer to clinic/hospital department [facility]OR[facility] CLIA# [id number] [address] [place] [address] from Last 3 Months or Most Recently Relevant to Health Maintenance Insurance MEDICAID [place] Advance Directives For more information, please contact: [phone] * Full Code (Latest Code Status on File) Date Activated Date Inactivated Comments 07/23/2012 11:04 PM 08/01/2012 3:20 PM Care Teams Nursery School Teacher Relationship Specialty Start Date End Date Valencia Pope FNP PCP - General NURSE PRACTITIONER 08/12/12
--- OUTSIDE RECORDS SUMMARY | 2025-01-19 12:08 | XMS_ITS | Clinical Summary ---
Author Organization [facility] Address [address] Attn: Epic Prelude ADT [place] [id number] Care Team Providers Care Environmental Advisor Name Role Phone Valencia Pope TUMBLERS SUPERVISOR Primary Care Provider [phone] Allergies No known active allergies Active Problems Problem Noted Date Diagnosed Date Renal insufficiency 07/24/2012 Anemia 07/24/2012 NSTEMI (non-ST elevated myocardial infarction) 0 [...] = 0.6 oz pur e alcohol) Comments Unknown Sex and Gender Information Value Date Recorded Sex Assigned at Not on file Legal Sex Female 2:21 AM ACQUISITION ADVISOR Gender Identity Not on file Sexual Orientation Not on file Plan of Treatment Health Maintenance Due Date Last Done Comments DIABETES ANNUAL FOOT EXAM 1968 DIABETES ANNUAL RETINAL EXAM 1968 DIABETES MICROALBUMIN ANNUAL SCREEN 1968 LDL CHOLESTEROL ANNUAL 1968 DTAP/TDAP/TD VACCINES (1 - Tdap) 1969 BREAST CANCER SCREENING 1990 COLORECTAL SCREENING 1995 Colorectal Cancer Screening 1995 FIT-DNA Q 3 years 1995 FIT/FOBT Q 1 year 1995 Flex Sig/CT Colonography Q 5 years 1995 ZOSTER VACCINE (1 of 2) 2000 DIABETES HBA1C Q 6 MONTHS 01/24/2013 07/24/2012 PNEUMOCOCCAL VACCINE 50+ YEARS (2 of 2 - PCV) 08/02/19 14 08/01/2012 OSTEOPOROSIS SCREENING 2015 INFLUENZA VACCINE (#1) 2024 08/01/2012 RSV VACCINE (60+ or ) (1 - 1-dose 75+ series) 2025 Care Teams Environmental Advisor Relationship Specialty Start Date End Date Valencia Pope FNP [address] [place] [id number] PCP - General NURSE PRACTITIONER 08/12/12
[2025-01-19 12:19] LABS: Hematocrit 40.1 % (36-47); Hemoglobin 13.40 g/dL (11.27-16.99); Mean Corpuscular HGB Conc 33.4 g/dL (30-55); Mean Corpuscular Hemoglobin 30.7 pg (27-33); Mean Corpuscular Volume 92.0 fl (85-98); Nucleated Red Blood Cells % 0 %; Platelet Count 210 10^3/cmm (157-399); Red Blood Count 4.36 10^6/uL (3.85-5.65); White Blood Count 5.39 10^3/uL (3.29-11.43)
--- NOTE | 2025-01-19 12:27 | XR_ITS ---
WS: [id number] Portable AP upright chest, 01/19/2025 Clinical Data: Weakness Comparison: Portable chest, 01/19/2024 Findings: No nodules, masses or effusions are seen. The heart is normal. There is a left infusion catheter which ends in the superior vena cava. The pulmonary vascularity is not increased. No pneumonia or pneumothorax is seen. The aortic arch shows calcification and tortuosity. Monitor leads are on the chest wall. XR/XR chest 1V portable [id number] Impression: Atherosclerosis.
[2025-01-19 12:30] VITALS: BP 147/81; PULSE 88; O2SAT 94
[2025-01-19 12:38] LABS: Troponin(5th) Baseline 9 ng/L (0-10)
[2025-01-19 12:40] LABS: Alanine Aminotransferase 30 U/L (0-33); Albumin Level 4.8 g/dL (3.5-5.2); Alkaline Phosphatase 117 U/L (35-105); Anion Gap 18.1 (5-19); Aspartate Amino Transferase 24 U/L (0-32); Blood Urea Nitrogen 22 mg/dL (8-23); Calcium 10.4 mg/dL (8.5-10.5); Carbon Dioxide 24 mmol/L (22-29); Chloride 100 mmol/L (98-107); Creatinine Clr Calc Pharmacy 43.0421; Globulin 2.3 g/dL (1.3-4.6); Glucose 153 mg/dL (65-115); Osmolality Calculated 292 mOsm/kg (285-295); Potassium 4.1 mmol/L (3.5-5.1); Sodium 138 mmol/L (136-145); Total Protein 7.1 g/dL (6.6-8.7)
[2025-01-19 12:41] LABS: Lactic Sepsis W/Reflex 2.2 mmol/L (0.5-2.2)
[2025-01-19 13:00] VITALS: BP 115/71; PULSE 77; O2SAT 95
[2025-01-19 13:00] LABS: Glucose Urine UA Negative (Normal); Nitrate Urine Negative (Negative); Specific Gravity, Urine 1.017 (1.005-1.030)
[2025-01-19 13:06] LABS: UA Slide Review UA Slide Review Perf
[2025-01-19 13:40] VITALS: BP 115/71; PULSE 71; O2SAT 95
[2025-01-19 14:02] LABS: Reflex Lactate Order REFLEX LACTIC ORDERD
== END 2025-01-19 13:42 | disposition home or self-care (01) ==
PROVIDERS: Emergency Provider Emergency Medicine; PCP Family Medicine
DX: R55 Syncope and collapse (principal); E86.0 Dehydration; Z79.84 Long term (current) use of oral hypoglycemic drugs; Z87.891 Personal history of nicotine dependence; E78.5 Hyperlipidemia, unspecified; J44.9 Chronic obstructive pulmonary disease, unspecified; I10 Essential (primary) hypertension
CPT/HCPCS: 36415; 36416; 70450; 71045; 80053; 81001; 82962; 83605; 84484; 85025; 87040; 93005; 96360; 99285; J7030

== ENCOUNTER 2025-02-09 12:24 | Oncology outpatient (recurring) (ONCR) | payer MEDICARE, SELFPAY ==
[2025-02-09 12:59] LABS: Hematocrit 37.2 % (36-47); Hemoglobin 12.50 g/dL (11.27-16.99); Mean Corpuscular HGB Conc 33.6 g/dL (30-55); Mean Corpuscular Hemoglobin 30.5 pg (27-33); Mean Corpuscular Volume 90.7 fl (85-98); Nucleated Red Blood Cells % 0 %; Platelet Count 173 10^3/cmm (157-399); Red Blood Count 4.10 10^6/uL (3.85-5.65); White Blood Count 5.63 10^3/uL (3.29-11.43)
[2025-02-09 13:20] LABS: Alanine Aminotransferase 27 U/L (0-33); Albumin Level 4.6 g/dL (3.5-5.2); Alkaline Phosphatase 119 U/L (35-105); Anion Gap 17.3 (5-19); Aspartate Amino Transferase 21 U/L (0-32); Blood Urea Nitrogen 23 mg/dL (8-23); Calcium 10.0 mg/dL (8.5-10.5); Carbon Dioxide 26 mmol/L (22-29); Chloride 98 mmol/L (98-107); Globulin 2.8 g/dL (1.3-4.6); Glucose 135 mg/dL (65-115); Osmolality Calculated 290 mOsm/kg (285-295); Potassium 4.3 mmol/L (3.5-5.1); Sodium 137 mmol/L (136-145); Total Protein 7.4 g/dL (6.6-8.7)
[2025-02-09 13:58] LABS: Carcinoembryonic Antigen 3.6 ng/mL (0.0-4.7)
== END 2025-03-11 23:59 | disposition home or self-care (01) ==
PROVIDERS: Nurse Practitioner; PCP Family Medicine; Visit Provider Internal Medicine
DX: Z08 Encounter for follow-up examination after completed treatment for malignant neoplasm (principal); Z85.048 Personal history of other malignant neoplasm of rectum, rectosigmoid junction, and anus; Z95.828 Presence of other vascular implants and grafts; Z87.891 Personal history of nicotine dependence; Z85.3 Personal history of malignant neoplasm of breast; Z92.3 Personal history of irradiation; Z92.21 Personal history of antineoplastic chemotherapy
CPT/HCPCS: 36415; 80053; 82378; 85025; 99213

== ENCOUNTER 2025-04-28 13:07 | Oncology outpatient (recurring) (ONCR) | payer MEDICARE, SELFPAY | END 2025-05-11 23:59 | disposition home or self-care (01) | LOC: ONCMED 13:08 | PROVIDERS: PCP Family Medicine; Visit Provider Internal Medicine | DX: Z08 Encounter for follow-up examination after completed treatment for malignant neoplasm (principal); Z85.048 Personal history of other malignant neoplasm of rectum, rectosigmoid junction, and anus; Z95.828 Presence of other vascular implants and grafts; Z87.891 Personal history of nicotine dependence; Z85.3 Personal history of malignant neoplasm of breast; Z92.3 Personal history of irradiation; Z92.21 Personal history of antineoplastic chemotherapy | CPT/HCPCS: 96523 ==